=== PATIENT | male | born 1970 | race Two or more races ===

== ENCOUNTER 2020-03-21 18:45 | Inpatient (IN) | payer MEDICAID, OTHER ==
[~2020-03-21] VITALS: Ht 167.6 cm; Wt 116.0 kg
[2020-03-21] MEDS ORDERED: ACETAMINOPHEN 325 MG TAB PO ONE (19:15)
[2020-03-21 20:08] LABS: Basophils # (auto) 0 10 ^3/uL (0-0.2); Basophils % (auto) 0.1 % (0.0-2.0); Eosinophils # (auto) 0 10 ^3/uL (0-0.8); Hematocrit 45.6 % (41.0-53.0); Lymphocytes # (auto) 0.6 10 ^3/uL (0.4-5.4); Lymphocytes % (auto) 11.3 % (10.0-50.0); Mean Corpuscular Hemoglobin 29.4 pg (28.0-32.0); Mean Corpuscular Volume 89.2 fL (80.0-100.0); Monocytes # (auto) 0.6 10 ^3/uL (0-1.3); Monocytes % (auto) 11.5 % (0.0-12.0); Neutrophils # (auto) 4.2 10 ^3/uL (1.6-8.6); Neutrophils % (auto) 77.1 % (37.0-80.0); Nucleated Red Blood Cells % 0.1 %; Platelet Count (auto) 148 10^3/uL (140-450); Red Blood Cells 5.11 10^6/uL (4.5-5.90); Red Cell Distribution Width 14.3 % (11.8-14.3); White Blood Cell 5.5 10^3/uL (4.4-10.8)
[2020-03-21 20:25] LABS: Alanine Aminotransferase 64 U/L (16-61); Albumin 3.1 g/dL (3.4-5.0); Anion Gap 7 (5-15); Aspartate Aminotransferase 49 U/L (15-37); BUN/Creatinine Ratio 9.7; Blood Urea Nitrogen 10 mg/dL (7-18); Calcium 8.1 mg/dL (8.5-10.1); Carbon Dioxide 27 mmol/L (21-32); Chloride 100 mmol/L (98-107); GFR African American 98 mL/min; GFR Non-African American 81 mL/min; Glucose 101 mg/dL (74-106); Potassium 4.3 mmol/L (3.5-5.1); Sodium 134 mmol/L (136-145)
[2020-03-21 20:30] LABS: Alkaline Phosphatase 62 U/L (45-117); Bilirubin, Total 0.3 mg/dL (0.2-1.0); Total Protein 7.8 g/dL (6.4-8.2)
[2020-03-21] MEDS ORDERED: SODIUM CHLORIDE 0.9% 1,000 ML IVB ONE (20:52)
[2020-03-21] MEDS ORDERED: ZINC SULFATE 220mg CAP or TAB PO ONE (21:00)
[2020-03-21] MEDS ORDERED: DOXYCYCLINE 100 MG TAB/CAP PO ONE (21:00)
[2020-03-21] MEDS ORDERED: ASCORBIC ACID 500 MG TAB PO ONE (21:00)
[2020-03-21] MEDS ORDERED: levoFLOXacin 500MG 100 ML IV ONE (21:00)
[2020-03-21 22:56] LABS: INR 0.98 (0.9-1.15); Partial Thromboplastin Time 36.2 sec (23.64-32.05)
[2020-03-21 23:55] LABS: Urine Bacteria FEW /hpf (None Seen); Urine Blood Negative /uL (Negative); Urine Mucus FEW (None Seen); Urine WBC 1 /hpf (0 - 3)
[2020-03-22] VITALS (28 sets, daily range): BP systolic 89–138; BP diastolic 37–91
[2020-03-22] MEDS ORDERED: ASCORBIC ACID 500 MG TAB ONE (00:15)
[2020-03-22] MEDS ORDERED: IPRATROPIUM BROM 0.5 MG/2.5ML INH SOL NEB PRN (00:30)
[2020-03-22] MEDS ORDERED: ALBUTEROL SULF 2.5 MG/0.5ML(0.5%) NEB SOLN NEB PRN (00:30)
[2020-03-22] MEDS ORDERED: TEMAZEPAM 15 MG CAP PO PRN (00:30)
[2020-03-22] MEDS ORDERED: LORazepam 0.5 MG TAB PO PRN (00:30)
[2020-03-22] MEDS ORDERED: HYDROcodone-ACET 5/325MG TAB PO PRN (00:30)
[2020-03-22] MEDS ORDERED: DOCUSATE SOD 100 MG CAP PO PRN (00:30)
[2020-03-22] MEDS ORDERED: DEXTROSE (50%) 50ML SYRG IV PRN (00:30)
[2020-03-22] MEDS ORDERED: MORPHINE SULF INJ 2 MG/ML SYRINGE 1ML IV PRN (00:30)
[2020-03-22] MEDS ORDERED: ONDANSETRON HCL 4 MG/2 ML VIAL IV PRN (00:30)
[2020-03-22] MEDS: ACETAMINOPHEN 500 MG TAB PO PRN (04:28)
[2020-03-22] MEDS: InsuLIN REG 1unit/0.01ml Soln (100units/ml) SC SCH ×3 (06:00→18:04)
[2020-03-22] MEDS: ALBUTEROL SULF HFA 90MCG INH 200DOSE IN SCH ×3 (06:00→22:00)
[2020-03-22] MEDS: ACCU-CHEK COMFORT CURVE STRIP VI SCH ×3 (06:26→18:04)
[2020-03-22] MEDS: CHOLECALCIFEROL (VITD3) 1,000UNIT=25mCg TAB PO SCH (08:06)
[2020-03-22] MEDS: ASCORBIC ACID 1,000 MG TAB PO SCH (08:06)
[2020-03-22] MEDS: ZINC SULFATE 220mg CAP or TAB PO SCH (08:07)
[2020-03-22] MEDS: cefTRIAXone 1GM/50ML D5W 50 ML IV SCH (08:08)
[2020-03-22] MEDS: LOSARTAN POTASSIUM 25 MG TAB PO SCH (08:08)
[2020-03-22] MEDS ORDERED: DOXYCYCLINE 100 MG TAB/CAP PO SCH (10:00)
[2020-03-22] MEDS ORDERED: methylPREDNISolone SOD SUCC 125 MG/2 ML VL IV SCH (10:00)
[2020-03-22] MEDS ORDERED: ENOXAPARIN SOD 40 MG/0.4 ML SYRINGE SC SCH (10:00)
[2020-03-22 11:10] LABS: Basophils # (auto) 0 10 ^3/uL (0-0.2); Basophils % (auto) 0.3 % (0.0-2.0); Eosinophils # (auto) 0 10 ^3/uL (0-0.8); Hematocrit 37.4 % (41.0-53.0); Hemoglobin 12.3 g/dL (13.5-17.5); Lymphocytes # (auto) 0.9 10 ^3/uL (0.4-5.4); Lymphocytes % (auto) 18.2 % (10.0-50.0); Mean Corpuscular Hemoglobin 29.2 pg (28.0-32.0); Mean Corpuscular Hgb Conc. 32.9 g/dL (32.0-36.0); Mean Corpuscular Volume 88.8 fL (80.0-100.0); Monocytes # (auto) 0.6 10 ^3/uL (0-1.3); Monocytes % (auto) 11.1 % (0.0-12.0); Neutrophils # (auto) 3.5 10 ^3/uL (1.6-8.6); Neutrophils % (auto) 70.4 % (37.0-80.0); Platelet Count (auto) 161 10^3/uL (140-450); Red Blood Cells 4.21 10^6/uL (4.5-5.90); Red Cell Distribution Width 13.8 % (11.8-14.3)
[2020-03-22 11:26] LABS: Albumin 2.6 g/dL (3.4-5.0); Anion Gap 7 (5-15); Blood Urea Nitrogen 12 mg/dL (7-18); Calcium 7.7 mg/dL (8.5-10.1); Carbon Dioxide 24 mmol/L (21-32); Chloride 103 mmol/L (98-107); Glucose 95 mg/dL (74-106); Potassium 3.9 mmol/L (3.5-5.1); Sodium 134 mmol/L (136-145)
[2020-03-22 11:35] LABS: Alanine Aminotransferase 68 U/L (16-61); Alkaline Phosphatase 56 U/L (45-117); Aspartate Aminotransferase 56 U/L (15-37); BUN/Creatinine Ratio 14.3; Bilirubin, Total 0.3 mg/dL (0.2-1.0); GFR African American 124 mL/min; GFR Non-African American 102 mL/min; Lactate Dehydrogenase 396 U/L (87-241); Total Protein 7.2 g/dL (6.4-8.2)
[2020-03-22 12:17] LABS: CRP High Sensitivity > 19 mg/dL (< 0.3)
[2020-03-22] MEDS ORDERED: SUCCINYLCHOLINE CHLORIDE 20 MG/ML 10ML VIAL IV ONE ×2 (14:38→14:45)
[2020-03-22] MEDS ORDERED: ETOMIDATE (2MG/ML) 20ML VIAL IV ONE ×2 (14:38→14:45)
[2020-03-22] MEDS ORDERED: MIDAZOLAM DRIP 50 mg/50mL 50 ML IV ONE (14:40)
[2020-03-22] MEDS: MIDAZOLAM DRIP 50 mg/50mL 50 ML IV SCH ×2 (14:55→21:00)
[2020-03-22] MEDS: PROPOFOL 100 ML IV SCH (15:00)
[2020-03-22] MEDS: NOREPINEPHRINE 8 MG/250ML KIT 250 ML IV SCH (15:10)
[2020-03-22] MEDS ORDERED: NOREPINEPHRINE 8 MG/250ML KIT 250 ML IV ONE (15:13)
[2020-03-22] MEDS ORDERED: fentaNYL Drip 2500mCg/250mlNS 250 ML IV ONE (15:24)
--- NOTE | 2020-03-22 15:28 | NUR ---
Respiratory note: VENT CHANGES MADE RR 16 VT TO 550. ABG 1800
[2020-03-22] MEDS: fentaNYL Drip 2500mCg/250mlNS 250 ML IV SCH (15:43)
--- NOTE | 2020-03-22 19:00 | NUR ---
RT Transport Note: Patient transported to ICU 110 with RN Eduar. Patient transported to and from procedure on ventilator with previous ordered settings. Patient on corrugated fastener driver with alarms set and audible, ambu-bag/mask connected to 02 tank. Patient returned to room with no adverse reaction noted. Transport completed without incident.
--- NOTE | 2020-03-22 19:10 | NUR ---
PT TRANSFERRED FROM ED TO ICU ROOM 110 TRANSFERRED BY BED ON OXYGEN, HEMODYNAMIC MONITOR, WITH RT AND RN AT THE BEDSIDE. VS T99.0, HR 65, BP 93/53 (LEVO 4MCG), RR 16 (PT PLACE ON VENTILATOR), SPO2 91%, SEDATED ON FENTANYL, VERSED AND PROPOFOL. BED IN THE LOWEST POSITION, HOB 35 DEGREES, RAILS X4 FOR SAFETY, PT PLACED ON MONITOR, KILLIAN DRAINING CLEAR YELLOW URINE DOWN THE GRAVITY. WILL TAKE OVER THE CARES, PT IS VISUALIZED FROM THE NURSING STATION AT ALL TIMES.
--- NOTE | 2020-03-22 20:02 | NUR ---
DANIAL KINGSLEY CALLED RECEIVED NEW ORDER FOR VENTILATOR SETTINGS
--- NOTE | 2020-03-22 21:00 | NUR ---
CATY AT BEDSIDE RECEIVED NEW ORDERS
[2020-03-22] MEDS ORDERED: FUROSEMIDE 20 MG/2 ML VIAL IV ONE (22:00)
--- NOTE | 2020-03-22 22:00 | NUR ---
PATIENT SATURATING AT FROM 89 TO 91% PAGED RT
[2020-03-22] MEDS: methylPREDNISolone SOD SUCC 40 MG/ML VL IV SCH (22:18)
[2020-03-22] MEDS: ENOXAPARIN SOD 40 MG/0.4 ML SYRINGE SC SCH (22:18)
--- NOTE | 2020-03-22 22:32 | NUR ---
CONTACT Updated daughter (Tequila Durand) who translated to patient's (Brenda Flower) on patients status and POC. Tequila Durand (daughter) contact number [phone] Brenda Flower ( - Amharic speaker only) contact number [phone]
[2020-03-23] VITALS (108 sets, daily range): BP systolic 90–118; BP diastolic 42–74
[2020-03-23] MEDS: InsuLIN REG 1unit/0.01ml Soln (100units/ml) SC SCH ×4 (00:45→18:00)
[2020-03-23] MEDS: PROPOFOL 100 ML IV SCH ×5 (00:46→23:23)
[2020-03-23] MEDS: MIDAZOLAM DRIP 50 mg/50mL 50 ML IV SCH ×3 (04:07→15:26)
[2020-03-23 05:04] LABS: Basophils # (auto) 0 10 ^3/uL (0-0.2); Basophils % (auto) 0.4 % (0.0-2.0); Eosinophils # (auto) 0 10 ^3/uL (0-0.8); Hematocrit 40.7 % (41.0-53.0); Hemoglobin 13.5 g/dL (13.5-17.5); Lymphocytes # (auto) 0.8 10 ^3/uL (0.4-5.4); Lymphocytes % (auto) 12.2 % (10.0-50.0); Mean Corpuscular Hemoglobin 29.5 pg (28.0-32.0); Mean Corpuscular Hgb Conc. 33.1 g/dL (32.0-36.0); Mean Corpuscular Volume 89.1 fL (80.0-100.0); Monocytes # (auto) 0.5 10 ^3/uL (0-1.3); Monocytes % (auto) 7.9 % (0.0-12.0); Neutrophils # (auto) 5.3 10 ^3/uL (1.6-8.6); Neutrophils % (auto) 79.5 % (37.0-80.0); Nucleated Red Blood Cells % 0.1 %; Platelet Count (auto) 206 10^3/uL (140-450); Red Blood Cells 4.57 10^6/uL (4.5-5.90); Red Cell Distribution Width 14.2 % (11.8-14.3); White Blood Cell 6.7 10^3/uL (4.4-10.8)
[2020-03-23 05:25] LABS: Potassium 3.9 mmol/L (3.5-5.1)
[2020-03-23 05:34] LABS: Albumin 2.6 g/dL (3.4-5.0); Bilirubin, Total 0.4 mg/dL (0.2-1.0); Calcium 8.3 mg/dL (8.5-10.1); Total Protein 7.1 g/dL (6.4-8.2)
[2020-03-23] MEDS: ALBUTEROL SULF HFA 90MCG INH 200DOSE IN SCH ×2 (06:00→14:00)
[2020-03-23] MEDS: ACCU-CHEK COMFORT CURVE STRIP VI SCH ×4 (06:07→18:52)
[2020-03-23] MEDS: fentaNYL Drip 2500mCg/250mlNS 250 ML IV SCH (06:38)
--- NOTE | 2020-03-23 06:39 | NUR ---
Respiratory note: RECEIVED PATIENT ON V12 V20 VENT ORALLY INTUBATED WITH AN 8.0 ETT SECURED VIA SHAKILA AT THE 23CM MARKING AT THE LIP, AND MECHANICALLY VENTILATED WITH THE CHARTED SETTINGS. SPO2 93%, LUNG SOUNDS DIM T/O, NO SECRETIONS WHEN SUCTIONED. SKIN IS WARM/DRY TO THE TOUCH AND IS INTACT NEAR SHAKILA SITE. THERE IS AN OGT IN PLACE AND SECURED TO THE ETT. AM CXR ASSESSED AND IT SHOWS ETT IN SATISFACTORY POSITION SITTING APPROX 3.6CM ABOVE THE OFELIA; NO INDICATION TO ADJUST TUBE AT THIS TIME. PATIENT IS UNRESPONSIVE TO BOTH VERBAL/TACTILE STIMULI AND IS SEDATED ON PROPOFOL, VERSED, AND FENTANYL DRIPS. HE IS RESTING COMFORTABLY AND TOLERATING VENT WELL, NO CHANGES MADE. VENT PLUGGED INTO RED OUTLET AND ALL ALARMS ARE SET AND AUDIBLE. WILL CONTINUE TO ASSESS PATIENT WELL VENTILATOR FUNCTION.
--- NOTE | 2020-03-23 06:40 | NUR ---
FAMILY CALLED SPOKE TO GENTRY (DAUGHTER) UPDATED HER ON PT'S STATUS AND POC. ALL QUESTION AND CONCERNS ADDRESSED
--- NOTE | 2020-03-23 09:00 | NUR ---
SEDATION VACATION PT NOT APPROPRIATE FOR SEDATION VACATION DUE TO HIGH OXYGEN REQUIREMENT. Addendum: 03/23/20 at 1303 by Alessandro Rubin RN Amended: Links added.
[2020-03-23] MEDS: methylPREDNISolone SOD SUCC 40 MG/ML VL IV SCH ×2 (09:21→21:19)
[2020-03-23] MEDS: cefTRIAXone 1GM/50ML D5W 50 ML IV SCH (09:21)
[2020-03-23] MEDS: ZINC SULFATE 220mg CAP or TAB PO SCH (09:22)
[2020-03-23] MEDS: ASCORBIC ACID 1,000 MG TAB PO SCH (09:22)
[2020-03-23] MEDS: CHOLECALCIFEROL (VITD3) 1,000UNIT=25mCg TAB PO SCH (09:22)
[2020-03-23] MEDS: LOSARTAN POTASSIUM 25 MG TAB PO SCH (09:23)
[2020-03-23] MEDS: ENOXAPARIN SOD 40 MG/0.4 ML SYRINGE SC SCH ×2 (09:23→21:19)
[2020-03-23] MEDS: AZITHROMYCIN 500MG/ 250ML 250 ML IV SCH (09:24)
--- NOTE | 2020-03-23 09:40 | NUR ---
DESATURATION/TEMPERATURE UPON TURNING PT TO LEFT SIDE, PT SPO2 WENT DOWN TO THE 70'S. PT PLACED BACK ON SUPINE POSITION AND SPO2 GRADUALLY CAME BACK UP TO 92%. PTS RECTAL TEMP 93.6. WARMING MEASURES STARTED. BRUCE EDMONDS PLACED ON PT ALONG WITH WARM BLANKETS. WILL CONTINUE TO MONITOR. Signed: 03/23/20 at 1116 by CHENTE LOERA <Co-Signature Required> Co-Signed: 03/23/20 at 1116 by Alessandro Rubin RN
--- NOTE | 2020-03-23 11:40 | NUR ---
WOUND CARE NOTE: ADDED PATIENT TO SKIN INTEGRITY MONITORING D/T PATIENT'S INTUBATION STATUS. PATIENT ADMITTED TO [facility] WITH DIAGNOSIS OF RESPIRATORY DISTRESS, COVID 19 POSITIVE. CURRENT ROSANGELA SCORE IS 10. CURRENTLY, PATIENT IS INTUBATED, SEDATED. PER BEDSIDE NURSE, PATIENT IS TOO UNSTABLE TO TURN, D/T OXYGEN DESATURATION UPON REPOSITIONING. PATIENT IS RESTING ON ICU LOW AIRLOSS BED. PER BEDSIDE NURSE, PATIENT IS WOUND FREE AT THIS TIME. SKIN/WOUND CARE PLAN IMPLEMENTED. PATIENT WOULD BENEFIT FROM BID APPLICATIONS WITH MOISTURE BARRIER CREAM/OPTIFOAM GENTLE SACRAL DRESSING PREVENTATIVE, FREQUENT TURN SCHEDULE Q 2 HOURS, PRN CONDITION PERMITS, WITH PRESSURE REDISTRIBUTION USING PILLOWS/WEDGES, DIETARY CONSULT FOR INTUBATION STATUS, CONTINUED MONITORING B WOUND CARE TEAM.
[2020-03-23] MEDS: NOREPINEPHRINE 8 MG/250ML KIT 250 ML IV SCH (12:27)
[2020-03-23] MEDS ORDERED: TOCILIZUMAB IV ONE ×2 (14:45→15:30)
[2020-03-23] MEDS ORDERED: FUROSEMIDE 40 MG/4 ML VIAL IV ONE (14:45)
[2020-03-23] MEDS ORDERED: SODIUM CHL 0.9% IV ONE ×2 (14:45→15:30)
[2020-03-23] MEDS ORDERED: diphenhdrAMINE HCL 50 MG/1 ML VL IV ONE (15:15)
[2020-03-23] MEDS ORDERED: ACETAMINOPHEN 650 mg PER 20 mL UD PO ONE (15:15)
[2020-03-23] MEDS ORDERED: methylPREDNISolone SOD SUCC 40 MG/ML VL IV ONE (15:15)
[2020-03-23] MEDS: FUROSEMIDE 40 MG/4 ML VIAL IV SCH (18:51)
--- NOTE | 2020-03-23 19:00 | NUR ---
Opening shift note: Report received on patient. Patient intubated ETT 8.0/ 24cm @ LL, Vent settings: AC 18, TV 550, FIO2 100%, PEEP 12, O2 88%, bilateral lungs clear and diminished. Central line right IJ triple lumen cath, infusing versed @ 13, Propofol @ 40, Levo @ 6, Fentanyl @ 175. OG tube clamped, placement checked. Farrell catheter draining via gravity with yellow urine. Temp 97.[address] Safety precautions in place. Will continue to monitor patient. Patient on isolation for COVID-19 positive.
--- NOTE | 2020-03-23 20:00 | NUR ---
RN repositioned patient and patient was noted to desaturate to low 80's and high 70's. Patient placed back into a supine position and oxygen saturation noted to gradually increase to high 80's. Patient currently to unstable to reposition.
--- NOTE | 2020-03-23 22:00 | NUR ---
Patient currently to unstable to reposition.
[2020-03-24] VITALS (83 sets, daily range): BP systolic 93–137; BP diastolic 44–74
--- NOTE | 2020-03-24 | NUR ---
Patient currently saturating in the high 80's. Patient currently remains to unstable to reposition.
[2020-03-24] MEDS: ACCU-CHEK COMFORT CURVE STRIP VI SCH ×5 (00:12→23:30)
[2020-03-24] MEDS: InsuLIN REG 1unit/0.01ml Soln (100units/ml) SC SCH ×5 (00:18→23:14)
[2020-03-24 04:57] LABS: Basophils # (auto) 0 10 ^3/uL (0-0.2); Basophils % (auto) 0.4 % (0.0-2.0); Eosinophils # (auto) 0 10 ^3/uL (0-0.8); Hematocrit 38.2 % (41.0-53.0); Hemoglobin 12.9 g/dL (13.5-17.5); Lymphocytes # (auto) 0.7 10 ^3/uL (0.4-5.4); Lymphocytes % (auto) 6.6 % (10.0-50.0); Mean Corpuscular Hgb Conc. 33.8 g/dL (32.0-36.0); Mean Corpuscular Volume 88.7 fL (80.0-100.0); Monocytes # (auto) 0.9 10 ^3/uL (0-1.3); Monocytes % (auto) 8.7 % (0.0-12.0); Neutrophils # (auto) 9.1 10 ^3/uL (1.6-8.6); Neutrophils % (auto) 84.3 % (37.0-80.0); Nucleated Red Blood Cells % 0.1 %; Platelet Count (auto) 249 10^3/uL (140-450); Red Blood Cells 4.31 10^6/uL (4.5-5.90); Red Cell Distribution Width 13.9 % (11.8-14.3); White Blood Cell 10.8 10^3/uL (4.4-10.8)
[2020-03-24 05:11] LABS: Albumin 2.5 g/dL (3.4-5.0); Calcium 7.9 mg/dL (8.5-10.1); Magnesium 2.9 mg/dL (1.6-2.6); Potassium 4.4 mmol/L (3.5-5.1)
[2020-03-24 05:21] LABS: BUN/Creatinine Ratio 16.1; Bilirubin, Total 0.3 mg/dL (0.2-1.0); Phosphorus 5.7 mg/dL (2.5-4.90); Total Protein 6.8 g/dL (6.4-8.2)
[2020-03-24] MEDS: FUROSEMIDE 40 MG/4 ML VIAL IV SCH ×2 (05:42→09:12)
[2020-03-24] MEDS: cefTRIAXone 1GM/50ML D5W 50 ML IV SCH (09:09)
[2020-03-24] MEDS: NOREPINEPHRINE 8 MG/250ML KIT 250 ML IV SCH (09:11)
[2020-03-24] MEDS ORDERED: ENOXAPARIN SOD 60 MG/0.6 ML SYRINGE SC SCH (10:00)
--- NOTE | 2020-03-24 10:00 | NUR ---
AM ASSESSMENT, PT REQUIRING 100% FIO2 PT DX WITH SUSPECTED COVID ACUTE HYPOXIC RESPIRATORY FAILURE. PT CURRENTLY NOT BEING REPOSITIONED IN BED D/T HIGH OXYGENATION REQUIREMENTS. LS CTA AND DIMINISHED ON ON THE BASIS, PT COMPLETELY SEDATED. SEE IV FLOW SHEET FOR SEDATION TITRATION. ALL CARE IS BEING CLUSTER TO LIMIT EXPOSURE TO COVID. FC WITH CLEAR UOP, PT HAS A TLC RT IJ WHERE ALL GTTS ARE INFUSING. TLC BENIGN AND PATENT. IV TO BOTH RT & LT ARM ARE BOTH HL AND BOTH FLUSHING WELL. PT'S DAUGHTER ALREADY CALLED THIS AM TO GET AN UPDATE ON PT'S CONDITION. SHE HAS BEEN UPDATED BY BOTH DAY AND BUTTON AND BUCKLE MAKER.
[2020-03-24] MEDS ORDERED: PANTOPRAZOLE 40 MG/10 ML VIAL INJ IV ONE (11:30)
--- NOTE | 2020-03-24 12:00 | NUR ---
DR. REID IN TO SEE PT . NEW ORDERS RECEIVED FOR LASIX GTT. I CALLED PHARMACY TO REQUEST FOR LASIX GTT.
[2020-03-24] MEDS ORDERED: FUROSEMIDE INJECTION 100 MG in SODIUM CHL 0.9% 100 ML IV SCH (12:15)
[2020-03-24] MEDS: ZINC SULFATE 220mg CAP or TAB PO SCH (12:17)
[2020-03-24] MEDS: CHOLECALCIFEROL (VITD3) 1,000UNIT=25mCg TAB PO SCH (12:18)
[2020-03-24] MEDS: ASCORBIC ACID 1,000 MG TAB PO SCH (12:18)
[2020-03-24] MEDS: methylPREDNISolone SOD SUCC 40 MG/ML VL IV SCH ×2 (12:23→21:56)
[2020-03-24] MEDS: AZITHROMYCIN 500MG/ 250ML 250 ML IV SCH (12:24)
--- NOTE | 2020-03-24 12:30 | NUR ---
Respiratory note: LM FOR REGARDING VENT ORDERS FROM . AWAITING CALL BACK
--- NOTE | 2020-03-24 14:40 | NUR ---
Respiratory note: LM SECOND MESSAGE FOR REGARDING VENT ORDERS. RT TO FOLLOW THROUGH WITH VENT ORDERS, ABG TO FOLLOW.
--- NOTE | 2020-03-24 15:10 | NUR ---
CONSENT FOR CONVALESCENT PLASMA OBTAINED CONSENT FROM PT'S DAUGHTER CAIN ARANDA TO TRANSFUSE CONVALESCENT PLASMA TO HER DAD, SHE AND HER OTHER SISTER ARE THE DECISION MAKER FOR PT, SINCE [place] IS [place]. ALL THE HAND HOUT REAGRDING TRANSFUSION BENEFITS AND RISK WAS EXPLAINED TO PT'S DAUGHTER PLUS SHE SAYD THAT DR. CHINO HAD ALREADY CALLED HER AND EXPLAINED TO HER ABOUT THE PLASMA BENEFITS AND THAT SHE HAD RESEARCHED IT ON LINE, SO SHE HAD AGREED THAT HER DAD COULD BENEFIT FROM RECEIVING THE PLASMA TRANSFUSION. MARLENI SINGER WAS THE WITNESS TO THIS CONSENT.
[2020-03-24] MEDS: fentaNYL Drip 2500mCg/250mlNS 250 ML IV SCH ×2 (15:22→21:43)
--- NOTE | 2020-03-24 15:44 | NUR ---
Nutrition Assessment Notes Please refer to link for full assessment notes. Est Energy needs: 5177-7951 kcals (20-23 kcal/kgBW) d/t Stg 3 CKD Est Protein needs: 86-97 gms/day (0.8-0.9 gm/kgBW) d/t Stg 3 CKD Will continue to monitor and reassess prn. Addendum: 03/24/20 at [address] Amended: Links added.
--- NOTE | 2020-03-24 17:05 | NUR ---
PAGED DR. CHINO TO NOTIFY HIM THAT DR. MADDOX IS NOT GOING TO BE ABLE TO CONSULT ON PT DT HIS WORK LOAD. TO HAVE DR. SHORT CONSULT ON PT.
[2020-03-24] MEDS: FUROSEMIDE INJECTION 100 MG in SODIUM CHL 0.9% 100 ML IV SCH (18:30)
--- NOTE | 2020-03-24 19:00 | NUR ---
Opening shift note: Report received on patient. Patient intubated ETT 8.0/ 24cm @ LL, Vent settings: AC 20, TV 550, FIO2 100%, PEEP 14, O2 86%, bilateral lungs clear and diminished. Central line right IJ triple lumen cath, infusing versed @ 0, Propofol @ 10, Levo @ 4, Fentanyl @ 100 and lasix @ 8mg/hr. OG tube clamped, placement checked. Farrell catheter draining via gravity with yellow urine. Temp 98.[address] Safety precautions in place. Will continue to monitor patient. Patient on isolation for COVID-19 positive.
--- NOTE | 2020-03-24 19:30 | NUR ---
Primary RN in patient's room performing assessment and checking lines. Patient was noted to go bradycardic into the 30's and then a heart rate into the 150's for 2 seconds which then decreased back into the 50's. RN assessed patient for pulses and noted pulsed to be present. Blood pressure was taken and reading of 156/58. Patient saturating at 94%. RN will continue to monitor and assess patient.
--- NOTE | 2020-03-24 19:58 | NUR ---
NOTIFIED DR. BAUM OF PT'S EVENT 1ST HE HAD DAY , THEN HE HAD A RUN OF SVT HR IN THE 150'S TO 160. ALL GTT'S HAD BEEN STOPPED, IT WAS QUESTIONABLE IF THE CAUSE OF ARRHYTHMIA WAS LASIX RELATED. WANTED THE ELECTROLYTES TO BE CHECKED AND THEN HE WANT TO BE CALLED WITH THE RESULTS. I NOTIFIED MARLENI SABA.
--- NOTE | 2020-03-24 20:00 | NUR ---
Patient currently to unstable to reposition and continues to de-saturate with any form of movement/ repositioning. RN will continue to monitor patient.
--- NOTE | 2020-03-24 21:00 | NUR ---
Sedation vacation held: Patient is currently to unstable for sedation vacation.
[2020-03-24 21:25] LABS: Calcium 7.6 mg/dL (8.5-10.1); Magnesium 3.4 mg/dL (1.6-2.6)
[2020-03-24] MEDS: ENOXAPARIN SOD 40 MG/0.4 ML SYRINGE SC SCH (22:00)
--- NOTE | 2020-03-24 22:00 | NUR ---
Patient currently to unstable to reposition.
--- NOTE | 2020-03-24 22:00 | NUR ---
Dr. Figueroa called RN regarding patient's lab results. RN informed MD that partial labs were only available and others still pending. MD stated he will call back in 15 minutes to follow up on labs. RN notified lab about results and lab informed RN that the patient's blood had hemolyzed as they were running it and the patient needs to be redrawn. RN informed lab they need to run the redraw stat.
[2020-03-24 22:50] LABS: BUN/Creatinine Ratio 19.4; Calcium 7.6 mg/dL (8.5-10.1); Potassium 4.4 mmol/L (3.5-5.1)
[2020-03-24] MEDS ORDERED: BUMETANIDE 2.5mg/10ml (0.25 mg/ml) INJ IV ONE (23:00)
--- NOTE | 2020-03-24 23:01 | NUR ---
RN paged Dr. Figueroa to follow up on patient's lab results and current condition. MD updated on patient condition and situation. New orders received for Bumex 2.5mg IV push and to resume Lasix drip at 7mg/hr. Orders read back and verified.
[2020-03-25] VITALS (91 sets, daily range): BP systolic 95–163; BP diastolic 54–87
--- NOTE | 2020-03-25 | NUR ---
Patient currently to unstable to reposition.
[2020-03-25] MEDS: PROPOFOL 100 ML IV SCH (04:23)
[2020-03-25] MEDS: InsuLIN REG 1unit/0.01ml Soln (100units/ml) SC SCH ×4 (04:57→23:13)
[2020-03-25] MEDS: ACCU-CHEK COMFORT CURVE STRIP VI SCH ×4 (04:58→23:15)
[2020-03-25 04:59] LABS: Magnesium 2.9 mg/dL (1.6-2.6); Phosphorus 4.3 mg/dL (2.5-4.90)
[2020-03-25 05:13] LABS: Hematocrit 37.9 % (41.0-53.0); Hemoglobin 12.3 g/dL (13.5-17.5); Mean Corpuscular Hemoglobin 28.9 pg (28.0-32.0); Mean Corpuscular Hgb Conc. 32.5 g/dL (32.0-36.0); Mean Corpuscular Volume 89.2 fL (80.0-100.0); Platelet Count (auto) 283 10^3/uL (140-450); Red Blood Cells 4.25 10^6/uL (4.5-5.90); Red Cell Distribution Width 13.9 % (11.8-14.3); White Blood Cell 13.9 10^3/uL (4.4-10.8)
[2020-03-25 05:20] LABS: Basophils % (manual) 0 (0.0-2.0); Blast Cells 0; Eosinophils % (manual) 0 (0-7); Metamyelocytes % 0; Myelocytes % 0; Promyelocytes % 0; Reactive Lymphocytes 0
[2020-03-25 06:31] LABS: Band Neutrophils % (manual) 3; Lymphocytes % (manual) 10 (10.0-50.0); Monocytes % (manual) 3 (0-12)
--- NOTE | 2020-03-25 07:18 | NUR ---
Opening Shift Note Assumed care of patient, sedated and with ET tube attached to AC ventilation. Bed is in lowest position and locked. Call light within reach. Board updated. No S/S of distress/SOB or pain. Patient attached to continuos pulse ox monitor, continuous campus monitor, and continuous thermometer. BP cuff on left bicep set to monitor q 15 minutes. Will continue to monitor for changes Q1hr and PRN.
[2020-03-25] MEDS: cefTRIAXone 1GM/50ML D5W 50 ML IV SCH (08:37)
--- NOTE | 2020-03-25 09:08 | NUR ---
Unable to perform sedation vacation. Patient is hemodynamically unstable and does not handle turning or sedation vacation. Addendum: 03/25/20 at 1405 by EVELYN BRUNSON RN Amended: Links added.
[2020-03-25] MEDS ORDERED: FUROSEMIDE INJECTION 100 MG in SODIUM CHL 0.9% 100 ML IV SCH (10:00)
[2020-03-25] MEDS ORDERED: CALCIUM CHL 100MG/ML 1,000 MG in D5W 5% 100 ML IV ONE (10:00)
--- NOTE | 2020-03-25 10:12 | NUR ---
MD Link in to see patient. No orders received.
[2020-03-25] MEDS ORDERED: methylPREDNISolone SOD SUCC 40 MG/ML VL IV ONE ×2 (10:45→13:45)
[2020-03-25] MEDS ORDERED: diphenhdrAMINE HCL 50 MG/1 ML VL IV ONE ×2 (10:45→13:45)
[2020-03-25] MEDS ORDERED: ACETAMINOPHEN 650 mg PER 20 mL UD PO ONE ×2 (10:45→13:45)
[2020-03-25] MEDS: methylPREDNISolone SOD SUCC 40 MG/ML VL IV SCH (10:58)
[2020-03-25] MEDS ORDERED: TOCILIZUMAB 400 MG in SODIUM CHL 0.9% 80 ML IV ONE ×2 (11:00→14:00)
[2020-03-25] MEDS: PANTOPRAZOLE 40 MG/10 ML VIAL INJ IV SCH (11:03)
[2020-03-25] MEDS: ASCORBIC ACID 1,000 MG TAB PO SCH (11:04)
[2020-03-25] MEDS: ENOXAPARIN SOD 40 MG/0.4 ML SYRINGE SC SCH ×2 (11:04→23:33)
[2020-03-25] MEDS: ZINC SULFATE 220mg CAP or TAB PO SCH (11:04)
[2020-03-25 11:05] LABS: BUN/Creatinine Ratio 20.9; Calcium 7.7 mg/dL (8.5-10.1); Potassium 4.3 mmol/L (3.5-5.1)
[2020-03-25] MEDS: CHOLECALCIFEROL (VITD3) 1,000UNIT=25mCg TAB PO SCH (11:05)
[2020-03-25] MEDS: methylPREDNISolone SOD SUCC 1,000 MG in SODIUM CHL 0.9% 250 ML IV SCH (12:05)
--- NOTE | 2020-03-25 12:38 | NUR ---
Started convalescent plasma infusion now. Vitals taken prior to administration. Will continue to assess.
--- NOTE | 2020-03-25 13:12 | NUR ---
MD Figueroa in to see patient. wants diuresis ideally of 200 mg/hr. Order: Increase lasix infusion to 15 mg/hr. add magnesium and potassium IV PB per protocol. Orders repeated, verified, and placed.
--- NOTE | 2020-03-25 13:25 | NUR ---
Plasma is now infused. Will continue to assess.
[2020-03-25] MEDS: AZITHROMYCIN 500MG/ 250ML 250 ML IV SCH (13:26)
--- NOTE | 2020-03-25 13:26 | NUR ---
Paged MD Cuevas to clarify order. Per , "Order Magnesium and Potassium IV supplementation per protocol." Spoke to pharmacy and the informed me that they do have a protocol policy for IV magnesium and Potassium but that that policy is for patients who have normal renal function and BUN and Creatinine are not impaired. Patient has elevated BUN and creatinine. Because of this , per pharmacy, MD Mendieta must either but in specific orders or a standing communication order for abnormal potassium and magnesium levels and what medications to order. Awaiting sandeep back.
[2020-03-25] MEDS: FUROSEMIDE INJECTION 100 MG in SODIUM CHL 0.9% 100 ML IV SCH ×5 (13:43→23:40)
[2020-03-25] MEDS: MIDAZOLAM DRIP 50 mg/50mL 50 ML IV SCH (14:38)
--- NOTE | 2020-03-25 15:31 | NUR ---
Spoke to RT regarding patient saturating between 86-92%. Patient keeps fluctuating back and forth between oxygen saturations. Per RT, she is comfortable with patient being at this oxygen saturation. Will continue to assess
--- NOTE | 2020-03-25 15:33 | NUR ---
assessment Patient is a 50 year old male who is on a vent. Per patients Brenda through a telephoner ADA her daughter prior to admission patient lived home with his other daughter and was independent. Patients has been staying in the [place] area due to needing help after surgery. Patients has not been exposed to patient and the covid 19. Per Brenda patient was taken to ER for fever and shortness of breath and was admitted and put on a vent. Patient has no DME or oxygen at home. I informed Brenda patients post discharge needs to be determined after extubation and prior to discharge. Brenda verbalized understanding. Addendum: 03/25/20 at 1536 by Inga DIALLO Amended: Links added.
[2020-03-25] MEDS: NOREPINEPHRINE 8 MG/250ML KIT 250 ML IV SCH ×2 (15:49→15:52)
--- NOTE | 2020-03-25 16:28 | NUR ---
MD Link has placed orders for potassium infusion.
--- NOTE | 2020-03-25 18:58 | NUR ---
Closing shift note Report given to MARLENI Little. No signs of distress from patient upon transferring care.
--- NOTE | 2020-03-25 21:00 | NUR ---
sedation vacation not performed at this time, as it is not appropriate; will cont. to monitor.
[2020-03-25 23:49] LABS: Calcium 7.8 mg/dL (8.5-10.1); Potassium 3.9 mmol/L (3.5-5.1)
[2020-03-25 23:51] LABS: BUN/Creatinine Ratio 27.9
[2020-03-26] VITALS (94 sets, daily range): BP systolic 86–139; BP diastolic 36–68
[2020-03-26 05:25] LABS: Hematocrit 36.1 % (41.0-53.0); Hemoglobin 11.9 g/dL (13.5-17.5); Mean Corpuscular Hemoglobin 29.2 pg (28.0-32.0); Mean Corpuscular Hgb Conc. 32.9 g/dL (32.0-36.0); Mean Corpuscular Volume 88.7 fL (80.0-100.0); Platelet Count (auto) 267 10^3/uL (140-450); Red Blood Cells 4.07 10^6/uL (4.5-5.90); Red Cell Distribution Width 13.9 % (11.8-14.3); White Blood Cell 11.1 10^3/uL (4.4-10.8)
[2020-03-26 05:44] LABS: Basophils % (manual) 0 (0.0-2.0); Blast Cells 0; Eosinophils % (manual) 0 (0-7); Myelocytes % 0; Promyelocytes % 0; Reactive Lymphocytes 0
[2020-03-26 05:48] LABS: Potassium 3.6 mmol/L (3.5-5.1)
[2020-03-26 06:04] LABS: BUN/Creatinine Ratio 29.6; CRP High Sensitivity 2.76 mg/dL (< 0.3); Calcium 7.5 mg/dL (8.5-10.1)
[2020-03-26 07:03] LABS: Band Neutrophils % (manual) 2; Lymphocytes % (manual) 3 (10.0-50.0); Metamyelocytes % 1; Monocytes % (manual) 3 (0-12)
--- NOTE | 2020-03-26 07:12 | NUR ---
REPORT RECEIVED FROM COMPLIANCE ENGINEER RN
[2020-03-26] MEDS: PROPOFOL 100 ML IV SCH ×2 (07:23→16:22)
[2020-03-26] MEDS: MIDAZOLAM DRIP 50 mg/50mL 50 ML IV SCH ×4 (07:23→21:44)
[2020-03-26] MEDS: POTASSIUM CHL 20MEQ/100ML 100 ML IV PRN ×2 (07:24→23:41)
[2020-03-26] MEDS: cefTRIAXone 1GM/50ML D5W 50 ML IV SCH (07:35)
--- NOTE | 2020-03-26 09:00 | NUR ---
SEDATION VACATION HELD AT THIS TIME. PATIENT HEMODYNAMICALLY STABLE AND DOES NOT TOLERATED TURNS OR REPOSITIONING. Addendum: 03/26/20 at 0902 by Rodger Coates RN Amended: Links added.
[2020-03-26] MEDS: PANTOPRAZOLE 40 MG/10 ML VIAL INJ IV SCH ×2 (09:49→21:45)
[2020-03-26] MEDS: ASCORBIC ACID 1,000 MG TAB PO SCH (09:49)
[2020-03-26] MEDS: CHOLECALCIFEROL (VITD3) 1,000UNIT=25mCg TAB PO SCH (09:49)
[2020-03-26] MEDS: ZINC SULFATE 220mg CAP or TAB PO SCH (09:49)
[2020-03-26] MEDS: ENOXAPARIN SOD 40 MG/0.4 ML SYRINGE SC SCH (09:50)
[2020-03-26] MEDS ORDERED: metOLazone 5 MG TAB PO SCH (10:00)
[2020-03-26] MEDS ORDERED: SPIRONOLACTONE 25 MG TAB PO SCH (10:00)
--- NOTE | 2020-03-26 10:00 | NUR ---
ORAL CARE PERFORMED PATIENT TOLERATED WELL
[2020-03-26] MEDS: AZITHROMYCIN 500MG/ 250ML 250 ML IV SCH (10:30)
[2020-03-26] MEDS: methylPREDNISolone SOD SUCC 1,000 MG in SODIUM CHL 0.9% 250 ML IV SCH (11:09)
[2020-03-26] MEDS: ACCU-CHEK COMFORT CURVE STRIP VI SCH ×2 (11:17→17:44)
[2020-03-26] MEDS: InsuLIN REG 1unit/0.01ml Soln (100units/ml) SC SCH ×2 (11:22→17:21)
--- NOTE | 2020-03-26 11:22 | NUR ---
Nutrition Followup Note Wt: 105.1 kg Pt`s covid +. Pt intubated and mildly sedated with propofol running @ 9.3 ml/hr and with propofol provding 245 kcals from fats. pt is currently NPO with no new diet order. Will f/u in 2-3 days. Est Energy needs: 1785-4448 kcals (20-23 kcal/kgBW) d/t Stg 3 CKD. Est Protein needs: 86-97 gms/day (0.8-0.9 gm/kgBW) d/t Stg 3 CKD, Will continue to monitor and reassess prn. Labs: BUN 66 H, CREAT 2.23 H, GLU 167 H, CA 7.5 L BM: Pt had no BM today with 100 ml gastric drainage yesterday per RN doc Skin: BS 9 high risk, full wound care details in RN doc PES: 1) Increased nutrient needs aeb pt is sedated, intubated, NPO r/t pt with no PO intake 2) Obesity aeb 166% IBW and BMI of 38.2 kg/m2 r/t pt Hx of energy intake in excess of energy needs 3) Altered nutrition related lab values elev RFTs, low GFR, hyperglycemia, hypocalcemia, mod hypoalbuminemia r/t current/chronic medical condition Comments Will continue to closely monitor pertinent labs, NPO status and skin status prn. Will followup in 2-3 days 1) Continue to closely monitor pt NPO status. 2) If pt remains NPO for the next 48 hours, consider EN nutrition support Glucerna 1.2 @ 70 ml/hr goal rate without propofol. 3) Gradually advance pt to oral Renal Specific 90gProtein,2gNa,K2,low phos diet diet when medically feasible and as tolerated .4) Continue current plan of care
[2020-03-26] MEDS ORDERED: ENOXAPARIN SOD 80 MG/0.8ML SYRINGE SC ONE (11:30)
--- NOTE | 2020-03-26 11:49 | NUR ---
FAMILY DAUGHTER UPDATED ON PATIENT STATUS. ALL QUESTIONS AND CONCERNS ADDRESSED AT THIS TIME
[2020-03-26] MEDS: FUROSEMIDE INJECTION 100 MG in SODIUM CHL 0.9% 100 ML IV SCH ×3 (12:00→17:59)
[2020-03-26] MEDS: fentaNYL Drip 2500mCg/250mlNS 250 ML IV SCH (12:01)
--- NOTE | 2020-03-26 13:17 | NUR ---
DECREASED RESP. RATED TO 18 AND DECREASED PEEP TO 12. PER DR. ACKERMAN'S ORDERS.
--- NOTE | 2020-03-26 15:22 | NUR ---
DR. GALARZA AT BEDSIDE
[2020-03-26] MEDS: NOREPINEPHRINE 8 MG/250ML KIT 250 ML IV SCH (15:49)
--- NOTE | 2020-03-26 19:45 | NUR ---
OPEN NOTES Assumed care of patient. Patient received sedated with IV Versed, Propofol and Fentanyl -refer IV spreadsheet Pupils both sluggishly reactive to light. No some upper limb movement to stimuli. Intubated and ventilated on AC mode, Fio2 45%. Suctioned small amount of secretions. Oral care done. VS stable. on IV Levophed - to keep MAP 70 mmHg as ordered. with ongoing IV Lasix drip. Urine output good amount yellowish with some sediments. OGT - clamped, checked placement. Skin intact, unable to asses back as patient easily desaturates when fully turned to sides according to day shift RN. Placed patient's bed on lateral rotation. Right IJ TLC dressing dry and intact. Full assessment done -refer interventions
--- NOTE | 2020-03-26 20:01 | NUR ---
WEANED OFF LEVOPHED
--- NOTE | 2020-03-26 21:00 | NUR ---
sedation vacation not done
--- NOTE | 2020-03-26 21:17 | NUR ---
FAMILY CALLED PATIENT'S DAUGHTER GENTRY CALLED. CORRECT PASSWORD GIVEN. UPDATED HER OF PATIENT'S CONDITION. ALL QUESTIONS ANSWERED. VERBALIZED UNDERSTANDING
[2020-03-26] MEDS: ENOXAPARIN SOD 120 MG/0.8 ML SYRINGE SC SCH (21:45)
--- NOTE | 2020-03-26 22:00 | NUR ---
TRIED TURNING PATIENT USING TURN ASSIST OF THE BED TOLERATED WELL. NO DESATURATION NOTED. BP DROPPED TO 87 SYSTOLIC BUT RECHECK WAS BETTER. KEPT AT LEFT LATERAL POSITION. WILL CONTINUE TO MONITOR
[2020-03-26 22:42] LABS: BUN/Creatinine Ratio 29.4; Potassium 3.4 mmol/L (3.5-5.1)
--- NOTE | 2020-03-26 23:00 | NUR ---
BP LOW MAP 60 MMHG IV LEVOPHED RESTARTED AT 2MCG/MIN MD ORDER TO KEEP MAP 70 MMHG
[2020-03-26] MEDS ORDERED: PROPOFOL 100 ML IV ONE (23:33)
--- NOTE | 2020-03-26 23:39 | NUR ---
POTASSIUM 3.4 MMOL POTASSIUM GIVEN PER ORDER
[2020-03-27] VITALS (96 sets, daily range): BP systolic 80–136; BP diastolic 18–78
[2020-03-27] MEDS: InsuLIN REG 1unit/0.01ml Soln (100units/ml) SC SCH ×5 (00:06→23:31)
--- NOTE | 2020-03-27 00:10 | NUR ---
KEPT BED ON LATERAL ROTATION
[2020-03-27] MEDS: ACCU-CHEK COMFORT CURVE STRIP VI SCH ×5 (00:15→23:30)
--- NOTE | 2020-03-27 01:45 | NUR ---
HYGIENE PATIENT CLEANED WITH CHG WIPES. PARTIAL LINEN CHANGE DONE. GOWN CHANGED. ORAL CARE DONE. KEPT BED ON LATERAL ROTATION
[2020-03-27] MEDS: FUROSEMIDE INJECTION 100 MG in SODIUM CHL 0.9% 100 ML IV SCH ×2 (02:00→05:53)
[2020-03-27] MEDS: MIDAZOLAM DRIP 50 mg/50mL 50 ML IV SCH ×4 (02:30→20:13)
[2020-03-27] MEDS: PROPOFOL 100 ML IV SCH (05:49)
--- NOTE | 2020-03-27 07:20 | NUR ---
REPORT REPORT GIVEN TO MARLENI THAYER
--- NOTE | 2020-03-27 07:25 | NUR ---
REPORT REPORT RECEIVED FROM BREANA YEPEZ, CARE ASSUMED. PT RESTING, NO DISTRESS NOTED. VITALS REMAINING STABLE AT THIS TIME.
--- NOTE | 2020-03-27 08:00 | NUR ---
INITIAL CONTACT PHYSICAL ASSESSMENT COMPLETE. PT OBSERVED RESTING IN BED, INTUBATED ON VENTILATOR. TOLERATING VENTILATION WELL AT THIS TIME, NO DISTRESS NOTED. AFEBRILE. PULSES PALPABLE BILATERAL RADIAL AND PEDAL. SCD'S ON BILATERAL EXTREMITIES. OXYGEN SATURATION 100%. PT HAS STRONG COUGH AND GAG WHEN STIMULATED. OGT PRESENT, PATENT, AND CLAMPED AT THIS TIME. KILLIAN CATHETER PATENT AND SECURED BELOW BLADDER. RIGHT IJ TLC, DRESSING IS CDI. SEE SKIN/WOUND ASSESSMENT. PT ISOLATED FOR COVID19. BED LOCKED IN LOWEST POSITION, ALARMS IN PLACE. WILL CONTINUE TO MONITOR.
--- NOTE | 2020-03-27 08:30 | NUR ---
LABS BLOOD OBTAINED FROM CENTRAL LINE AND SENT TO LAB.
--- NOTE | 2020-03-27 09:00 | NUR ---
SEDATION VACATION SEDATION VACATION HELD AT THIS TIME DUE TO INCREASED FIO2 REQUIREMENT.
[2020-03-27 09:25] LABS: BUN/Creatinine Ratio 31.6; Calcium 8.6 mg/dL (8.5-10.1); Potassium 3.1 mmol/L (3.5-5.1)
--- NOTE | 2020-03-27 09:30 | NUR ---
FAMILY PT DAUGHTER GENTRY CALLED FOR UPDATE. PASSWORD PROVIDED. UPDATED ON STATUS AND PLAN OF CARE.
[2020-03-27] MEDS: AZITHROMYCIN 500MG/ 250ML 250 ML IV SCH (09:59)
[2020-03-27] MEDS: ENOXAPARIN SOD 120 MG/0.8 ML SYRINGE SC SCH (10:00)
[2020-03-27] MEDS: ASCORBIC ACID 1,000 MG TAB PO SCH (10:00)
[2020-03-27] MEDS: PANTOPRAZOLE 40 MG/10 ML VIAL INJ IV SCH ×2 (10:00→22:00)
[2020-03-27] MEDS: CHOLECALCIFEROL (VITD3) 1,000UNIT=25mCg TAB PO SCH (10:00)
[2020-03-27] MEDS: ZINC SULFATE 220mg CAP or TAB PO SCH (10:00)
[2020-03-27] MEDS ORDERED: SPIRONOLACTONE 25 MG TAB PO SCH (10:00)
[2020-03-27 10:15] LABS: Hematocrit 42.8 % (41.0-53.0); Hemoglobin 13.8 g/dL (13.5-17.5); Mean Corpuscular Hemoglobin 28.5 pg (28.0-32.0); Mean Corpuscular Hgb Conc. 32.3 g/dL (32.0-36.0); Mean Corpuscular Volume 88.3 fL (80.0-100.0); Platelet Count (auto) 397 10^3/uL (140-450); Red Blood Cells 4.85 10^6/uL (4.5-5.90); Red Cell Distribution Width 13.6 % (11.8-14.3); White Blood Cell 17.7 10^3/uL (4.4-10.8)
[2020-03-27 10:18] LABS: Band Neutrophils % (manual) 0; Basophils % (manual) 0 (0.0-2.0); Blast Cells 0; Eosinophils % (manual) 0 (0-7); Metamyelocytes % 0; Promyelocytes % 0; Reactive Lymphocytes 0
--- NOTE | 2020-03-27 10:20 | NUR ---
PAGED PAGED REGARDING PATIENTS ELEVATED BUN/CREATININE LEVELS. AWAITING CALL BACK.
[2020-03-27 10:37] LABS: Lymphocytes % (manual) 7 (10.0-50.0); Monocytes % (manual) 6 (0-12); Myelocytes % 4
--- NOTE | 2020-03-27 11:32 | NUR ---
RETURNED PAGE RETURNED CALL REGARDING CRITICAL LAB VALUE OF BUN/CREATININE. ORDERS OBTAINED VIA TELEPHONE.
[2020-03-27] MEDS ORDERED: FUROSEMIDE INJECTION 100 MG in SODIUM CHL 0.9% 100 ML IV SCH (11:45)
[2020-03-27] MEDS ORDERED: ALBUMIN 25% 100 ML IV ONE (11:45)
[2020-03-27] MEDS: cefTRIAXone 1GM/50ML D5W 50 ML IV SCH (12:10)
[2020-03-27] MEDS: POTASSIUM CHL 20MEQ/100ML 100 ML IV PRN ×2 (12:11→22:03)
[2020-03-27] MEDS: methylPREDNISolone SOD SUCC 1,000 MG in SODIUM CHL 0.9% 250 ML IV SCH (14:24)
--- NOTE | 2020-03-27 14:59 | NUR ---
MD VISIT AT BEDSIDE ROUNDING. ORDER OBTAINED TO CHANGE VENT SETTINGS, DECREASE SEDATION, AND REPLACE ELECTROLYTE. ORDERS PLACED.
[2020-03-27] MEDS: fentaNYL Drip 2500mCg/250mlNS 250 ML IV SCH ×2 (15:22→21:16)
[2020-03-27] MEDS: POTASSIUM CHL 20MEQ/100ML 100 ML IV SCH ×2 (15:58→16:53)
[2020-03-27] MEDS: NOREPINEPHRINE 8 MG/250ML KIT 250 ML IV SCH (15:59)
--- NOTE | 2020-03-27 15:59 | NUR ---
MD VISIT AT BEDSIDE ROUNDING. MD AWARE OF LABS, MEDICATION, AND URINE OUTPUT.
--- NOTE | 2020-03-27 16:00 | NUR ---
CARES PARTIAL LINEN CHANGE COMPLETE. SKIN REASSESSMENT PERFORMED. SKIN INTACT. PT REPOSITIONED ON SIDE. ALL EXTREMITIES OFF LOADED ON PILLOWS. VITALS REMAIN STABLE. WILL CONTINUE TO MONITOR.
--- NOTE | 2020-03-27 18:50 | NUR ---
PAGED PAGED REGARDING ABG RESULTS.
--- NOTE | 2020-03-27 19:17 | NUR ---
REPORT REPORT GIVEN TO BREANA YEPEZ, CARE ENDORSED.
--- NOTE | 2020-03-27 20:10 | NUR ---
OPEN NOTES Assumed care of patient. Patient received sedated with IV Versed, Propofol and Fentanyl -refer IV spreadsheet Pupils both sluggishly reactive to light. No some upper limb movement to stimuli. Intubated and ventilated on AC mode, Fio2 70%. Suctioned small amount of secretions. For repeat ABG later at 11pm. Oral care done. Afebrile. VS stable. on IV Levophed - to keep MAP 70 mmHg as ordered. with ongoing IV Lasix drip. Urine output good amount yellowish with some sediments. OGT - clamped, checked placement. Skin intact, unable to asses back as patient easily desaturates when fully turned to sides according to day shift RN. Placed patient's bed on lateral rotation. Right IJ TLC dressing dry and intact. Full assessment done -refer interventions
[2020-03-27 21:23] LABS: BUN/Creatinine Ratio 34.1; Calcium 9.2 mg/dL (8.5-10.1); Potassium 3.5 mmol/L (3.5-5.1)
--- NOTE | 2020-03-27 21:34 | NUR ---
RADHA OBREGON FOR CRITICAL LAB RESULT
--- NOTE | 2020-03-27 21:40 | NUR ---
CALLED BACK TALKED TO DR. GALARZA OVER THE PHONE. INFORMED OF CRITICAL LAB VALUES IN BMP RESULTS CO2 41, BUN 88 INFORMED OF POTASSIUM AND CREATININE RESULTS WELL TELEPHONE ORDER RECEIVED 1. GIVE POTASSIUM REPLACEMENT ORDERED IN [facility] 2. DIAMOX 500MG IV X 1 3. IV LASIX DRIP TO 5MG/HR
[2020-03-27] MEDS: FUROSEMIDE INJECTION 100 MG in D5W 5% 100 ML IV SCH (21:45)
[2020-03-27] MEDS ORDERED: acetaZOLAMIDE SODIUM 500 MG VL IV ONE (21:45)
--- NOTE | 2020-03-27 22:00 | NUR ---
KEPT BED ON LATERAL ROTATION
[2020-03-27] MEDS: ENOXAPARIN SOD 100 MG/1 ML SYRINGE SC SCH (22:02)
--- NOTE | 2020-03-27 22:28 | NUR ---
DIAMOX NOT AVAILABLE DIAMOX NOT IN [facility]. CANNOT FIND IN GLOBAL FIND TOO. RADHA KINGSLEY TALKED TO DR. GALARZA INFORMED OF THE ABOVE HE ORDERED IF TABLET FORM AVAILABLE GIVE TABLET WITH SAME AMOUNT. IF TABLET IS NOT AVAILABLE TOO - TO HOLD IV LASIX DRIP FOR TONIGHT
[2020-03-27] MEDS ORDERED: acetaZOLAMIDE 250 MG TAB PO ONE (22:45)
--- NOTE | 2020-03-27 23:42 | NUR ---
DR. CHINO NOTIFIED OF ABG NO NEW ORDER RECEIVED
[2020-03-28] VITALS (101 sets, daily range): BP systolic 85–134; BP diastolic 43–85
[2020-03-28] MEDS: FUROSEMIDE INJECTION 100 MG in D5W 5% 100 ML IV SCH (00:09)
[2020-03-28] MEDS: MIDAZOLAM DRIP 50 mg/50mL 50 ML IV SCH ×4 (00:12→15:33)
--- NOTE | 2020-03-28 05:30 | NUR ---
HYGIENE PATIENT CLEANED WITH CHG WIPES PARTIAL LINEN CHANGE DONE REPOSITIONED
[2020-03-28] MEDS: InsuLIN REG 1unit/0.01ml Soln (100units/ml) SC SCH ×3 (06:02→17:57)
[2020-03-28] MEDS: ACCU-CHEK COMFORT CURVE STRIP VI SCH ×3 (06:02→17:57)
[2020-03-28 06:33] LABS: Hemoglobin 14.3 g/dL (13.5-17.5); Mean Corpuscular Hemoglobin 28.4 pg (28.0-32.0); Mean Corpuscular Hgb Conc. 31.8 g/dL (32.0-36.0); Mean Corpuscular Volume 89.4 fL (80.0-100.0); Platelet Count (auto) 406 10^3/uL (140-450); Red Blood Cells 5.03 10^6/uL (4.5-5.90); Red Cell Distribution Width 13.7 % (11.8-14.3); White Blood Cell 20.5 10^3/uL (4.4-10.8)
[2020-03-28 06:50] LABS: Band Neutrophils % (manual) 0; Basophils % (manual) 0 (0.0-2.0); Blast Cells 0; Eosinophils % (manual) 0 (0-7); Metamyelocytes % 0; Myelocytes % 0; Promyelocytes % 0; Reactive Lymphocytes 0
[2020-03-28 06:51] LABS: Albumin 3.9 g/dL (3.4-5.0); Calcium 9.4 mg/dL (8.5-10.1); Magnesium 3.3 mg/dL (1.6-2.6); Potassium 3.4 mmol/L (3.5-5.1)
[2020-03-28 06:59] LABS: BUN/Creatinine Ratio 35.6; Bilirubin, Total 1.7 mg/dL (0.2-1.0); CRP High Sensitivity 1.19 mg/dL (< 0.3); Phosphorus 5.2 mg/dL (2.5-4.90); Total Protein 8.1 g/dL (6.4-8.2)
--- NOTE | 2020-03-28 07:24 | NUR ---
REPORT REPORT GIVEN TO MARLENI THAYER
--- NOTE | 2020-03-28 07:29 | NUR ---
REPORT REPORT RECEIVED FROM BREANA YEPEZ, CARE ASSUMED. PT RESTING, NO DISTRESS NOTED. VITALS REMAINING STABLE AT THIS TIME.
[2020-03-28] MEDS: POTASSIUM CHL 20MEQ/100ML 100 ML IV PRN ×2 (07:49→12:32)
[2020-03-28 07:53] LABS: Lymphocytes % (manual) 12 (10.0-50.0); Monocytes % (manual) 5 (0-12)
--- NOTE | 2020-03-28 08:20 | NUR ---
INITIAL CONTACT PHYSICAL ASSESSMENT COMPLETE. PT OBSERVED RESTING IN BED, INTUBATED ON VENTILATOR. TOLERATING VENTILATION WELL AT THIS TIME, NO DISTRESS NOTED. AFEBRILE. COUGH AND GAG NOTED. PULSES PALPABLE BILATERAL RADIAL AND PEDAL. SCD'S ON BILATERAL EXTREMITIES. OXYGEN SATURATION 100%. RESPIRATIONS ARE EVEN AND UNLABORED. OGT PRESENT, PATENT, AND CLAMPED AT THIS TIME. KILLIAN CATHETER PATENT AND SECURED BELOW BLADDER. RIGHT IJ TLC, DRESSING IS CDI. SEE SKIN/WOUND ASSESSMENT. PT ISOLATED FOR COVID19. BED LOCKED IN LOWEST POSITION, ALARMS IN PLACE. PT ON FREQUENT TURNING SCHEDULE. ALL EXTREMITIES OFF LOADED ON PILLOWS. WILL CONTINUE TO MONITOR.
[2020-03-28] MEDS: cefTRIAXone 1GM/50ML D5W 50 ML IV SCH (08:48)
--- NOTE | 2020-03-28 09:13 | NUR ---
SEDATION VACATION SEDATION VACATION HELD AT THIS TIME DUE TO HIGH LEVEL OF FIO2 REQUIREMENT ON VENTILATOR. PT DOES RESPOND TO PAINFUL STIMULI, GRIMACES, AND MOVES UPPER EXTREMITIES.
--- NOTE | 2020-03-28 09:47 | NUR ---
FAMILY PT DAUGHTER GENTRY CALLED FOR UPDATE. PASSWORD PROVIDED. UPDATED ON STATUS AND PLAN OF CARE.
[2020-03-28] MEDS: ZINC SULFATE 220mg CAP or TAB PO SCH (10:51)
[2020-03-28] MEDS: PANTOPRAZOLE 40 MG/10 ML VIAL INJ IV SCH ×2 (10:51→22:00)
[2020-03-28] MEDS: ASCORBIC ACID 1,000 MG TAB PO SCH (10:51)
[2020-03-28] MEDS: methylPREDNISolone SOD SUCC 40 MG/ML VL IV SCH ×2 (10:51→22:00)
[2020-03-28] MEDS: CHOLECALCIFEROL (VITD3) 1,000UNIT=25mCg TAB PO SCH (10:51)
[2020-03-28] MEDS: ENOXAPARIN SOD 100 MG/1 ML SYRINGE SC SCH ×2 (10:52→22:00)
--- NOTE | 2020-03-28 11:34 | NUR ---
Nutrition Followup Note Wt: 98.6 kg Pt`s covid +. Pt intubated and mildly sedated with propofol running @ 9.3 ml/hr and with propofol provding 245 kcals from fats. pt is currently NPO with no new diet order. Will f/u in 2-3 days. Est Energy needs: 0679-1842 kcals (20-23 kcal/kgBW) d/t Stg 3 CKD. Est Protein needs: 86-97 gms/day (0.8-0.9 gm/kgBW) d/t Stg 3 CKD, Will continue to monitor and reassess prn. Labs: BUN 94H, Creat 2.64H, Gluc 149H, Alb 3.9WNL BM: Pt had no BM today Skin: BS 12 high risk, full wound care details in RN doc PES: 1) Increased nutrient needs aeb pt is sedated, intubated, NPO r/t pt with no PO intake 2) Obesity aeb 166% IBW and BMI of 38.2 kg/m2 r/t pt Hx of energy intake in excess of energy needs 3) Altered nutrition related lab values elev RFTs, low GFR, hyperglycemia, hypocalcemia, mod hypoalbuminemia r/t current/chronic medical condition Comments Will continue to closely monitor pertinent labs, NPO status and skin status prn. Will followup in 2-3 days 1) Continue to closely monitor pt NPO status. 2) If pt remains NPO for the next 48 hours, consider EN nutrition support Glucerna 1.2 @ 70 ml/hr goal rate without propofol. 3) Gradually advance pt to oral Renal Specific 90gProtein,2gNa,K2,low phos diet diet when medically feasible and as tolerated .4) Continue current plan of care
--- NOTE | 2020-03-28 12:06 | NUR ---
MD VISIT ROUNDING AT BEDSIDE.
[2020-03-28 12:18] LABS: BUN/Creatinine Ratio 35.5; Calcium 9.1 mg/dL (8.5-10.1); Potassium 3.4 mmol/L (3.5-5.1)
--- NOTE | 2020-03-28 12:38 | NUR ---
MD VISIT DR.OLADELE BOO. MD AWARE OF LABS, INTAKE, URINE OUTPUT, AND IV MEDICATIONS. NEW ORDERS RECEIVED. WILL CONTINUE TO MONITOR.
[2020-03-28] MEDS ORDERED: POTASSIUM CHL 20MEQ/100ML 100 ML IV ONE (14:00)
--- NOTE | 2020-03-28 14:00 | NUR ---
Respiratory note: TITRATED FIO2 TO 50%, ABG TO FOLLOW AT 1800 PER
--- NOTE | 2020-03-28 15:26 | NUR ---
ROUNDS REPOSITIONING AND ORAL CARE COMPLETE. PT WITHDRAWAL FROM NOXIOUS STIMULI. MOVING UPPER EXTREMITIES WITH SEVERE WEAKNESS. NO DISTRESS NOTED. PT RETURNED TO SLEEP WITHOUT STIMULI. VITAL SIGNS REMAINING STABLE. WILL CONTINUE TO MONITOR.
[2020-03-28] MEDS: NOREPINEPHRINE 8 MG/250ML KIT 250 ML IV SCH (15:49)
--- NOTE | 2020-03-28 17:50 | NUR ---
Respiratory note: AT BEDSIDE IN FULL PPE FOR COVID-19 PRECAUTIONS. AT BEDSIDE FOR ABG. OBTAINED FROM RRA ON FIRST ATTEMPT.
--- NOTE | 2020-03-28 18:00 | NUR ---
RT AT BEDSIDE RT OBTAINED ABG. FIO2 INCREASED FROM 50% TO 70%.
--- NOTE | 2020-03-28 18:20 | NUR ---
Respiratory note: AT BEDSIDE IN FULL PPE FOR COVID-19 PRECAUTIONS. INCREASED FIO2 FROM 50% TO 70% DUE TO POST ABG RESULTS. MARLENI THAYER COMMUNICATED ON O2 CHANGE.
[2020-03-28] MEDS: PROPOFOL 100 ML IV SCH (18:31)
--- NOTE | 2020-03-28 18:37 | NUR ---
Respiratory note: VENT CHECK DONE BY PTS ROOM DOOR DUE TO COVID-19 PRECAUTIONS. RECEIVED PT ON VENT V12, VENT CONNECTED TO RED OUTLET AND O2 SOURCE. ALARMS ARE SET AND AUDIBLE. AMBU BAG AND MASK AT BEDSIDE. PTS CURRENT BODY TEMP READS 99.3F. NO CHANGES MADE WILL CONTINUE TO MONITOR Q2H.
--- NOTE | 2020-03-28 19:28 | NUR ---
REPORT REPORT GIVEN TO PAWEL YEPEZ, CARE ENDORSED.
--- NOTE | 2020-03-28 19:30 | NUR ---
Received report from Day shift RN. Assumed care of pt at this time. VSS.
--- NOTE | 2020-03-28 20:24 | NUR ---
Respiratory note: VENT CHECK DONE BY PTS ROOM DOOR DUE TO COVID-19 PRECAUTIONS. PTS CURRENT BODY TEMP READS 99.3F. NO CHANGES MADE WILL CONTINUE TO MONITOR Q2H.
--- NOTE | 2020-03-28 22:21 | NUR ---
Respiratory note: VENT CHECK DONE BY PTS ROOM DOOR DUE TO COVID-19 PRECAUTIONS. MARLENI ARMAS CURRENTLY AT BEDSIDE. PTS CURRENT BODY TEMP READS 99.1F. NO CHANGES MADE WILL CONTINUE TO MONITOR Q2H.
[2020-03-28 23:18] LABS: BUN/Creatinine Ratio 39.9; Calcium 8.9 mg/dL (8.5-10.1); Potassium 4.1 mmol/L (3.5-5.1)
[2020-03-29] VITALS (101 sets, daily range): BP systolic 93–121; BP diastolic 43–70
[2020-03-29 05:06] LABS: Basophils # (auto) 0.1 10 ^3/uL (0-0.2); Basophils % (auto) 0.4 % (0.0-2.0); Eosinophils # (auto) 0 10 ^3/uL (0-0.8); Eosinophils % (auto) 0.3 % (0.0-7.0); Hematocrit 42.7 % (41.0-53.0); Lymphocytes # (auto) 0.7 10 ^3/uL (0.4-5.4); Mean Corpuscular Hemoglobin 29.2 pg (28.0-32.0); Mean Corpuscular Hgb Conc. 32.7 g/dL (32.0-36.0); Mean Corpuscular Volume 89.2 fL (80.0-100.0); Monocytes # (auto) 0.3 10 ^3/uL (0-1.3); Monocytes % (auto) 2.2 % (0.0-12.0); Neutrophils # (auto) 12.8 10 ^3/uL (1.6-8.6); Neutrophils % (auto) 92.1 % (37.0-80.0); Nucleated Red Blood Cells % 0.2 %; Platelet Count (auto) 311 10^3/uL (140-450); Red Blood Cells 4.78 10^6/uL (4.5-5.90); Red Cell Distribution Width 13.8 % (11.8-14.3); White Blood Cell 13.9 10^3/uL (4.4-10.8)
[2020-03-29] MEDS: InsuLIN REG 1unit/0.01ml Soln (100units/ml) SC SCH ×4 (05:47→18:10)
[2020-03-29] MEDS: ACCU-CHEK COMFORT CURVE STRIP VI SCH ×4 (05:47→18:00)
[2020-03-29 07:16] LABS: Calcium 9.1 mg/dL (8.5-10.1); Potassium 4.2 mmol/L (3.5-5.1)
[2020-03-29 07:19] LABS: BUN/Creatinine Ratio 40.6
--- NOTE | 2020-03-29 07:30 | NUR ---
Respiratory note: LM FOR DR MADDOX TO RETURN MY CALL REGARDING PT CRITICAL ABG VALUES. RN MADE AWARE. WILL CONTINUE TO MONITOR PT.
--- NOTE | 2020-03-29 07:37 | NUR ---
End of shift note Report given to day shift RN
--- NOTE | 2020-03-29 07:47 | NUR ---
PAGED PULMONOLOGY/NEPHROLOGY DR MADDOX PAGED REGARDING MORNING G - Cholo [email or web address].Harpreet. HAS LEFT A MESSAGE FOR HIM WELL. AWAITING RESPONSE. MESSAGE LEFT FOR BORING MACHINE OPERATOR MD DR UNGER REGARDING CRITICAL BUN AND CO2, AWAITING RESPONSE.
[2020-03-29] MEDS: MIDAZOLAM DRIP 50 mg/50mL 50 ML IV SCH ×3 (08:37→22:00)
--- NOTE | 2020-03-29 08:50 | NUR ---
RETURN CALL FROM DR MADDOX/RADHA HOSPITALIST DR MADDOX NOTIFIED THIS NURSE THAT "THIS IS A HOSPITALIST PATIENT, I AM NOT ON THIS CASE". RADHA HOSPITALIST, DR CHINO TO NOTIFY OF CRITICAL MORNING LABS AND ABG, AWAITING RESPONSE.
[2020-03-29] MEDS: cefTRIAXone 1GM/50ML D5W 50 ML IV SCH (09:14)
[2020-03-29] MEDS: PANTOPRAZOLE 40 MG/10 ML VIAL INJ IV SCH ×2 (10:14→22:00)
[2020-03-29] MEDS: ENOXAPARIN SOD 100 MG/1 ML SYRINGE SC SCH ×2 (10:14→22:00)
[2020-03-29] MEDS: ASCORBIC ACID 1,000 MG TAB PO SCH (10:14)
[2020-03-29] MEDS: CHOLECALCIFEROL (VITD3) 1,000UNIT=25mCg TAB PO SCH (10:14)
[2020-03-29] MEDS: ZINC SULFATE 220mg CAP or TAB PO SCH (10:14)
--- NOTE | 2020-03-29 11:00 | NUR ---
NEPHROLOGY AT BEDSIDE THIS NURSE IN ISOLATION ROOM - TOLD TO LOOK AT CRITICAL LABS AND MORNING ABG. DR UNGER ORDERED LASIX TO BE DISCONTINUED AND TO SEND URINE TO LAB. ORDERS CARRIED OUT.
--- NOTE | 2020-03-29 11:01 | NUR ---
URINE/LAB SENT
[2020-03-29 11:04] LABS: BUN/Creatinine Ratio 44.3; Calcium 8.7 mg/dL (8.5-10.1)
[2020-03-29 11:09] LABS: Potassium 3.9 mmol/L (3.5-5.1)
[2020-03-29 11:12] LABS: Protein, Urine 19.8 mg/dL (0.0-11.9)
--- NOTE | 2020-03-29 12:30 | NUR ---
HOSPITALIST AT BEDSIDE DR CHINO UPDATED ON PATIENT'S STATUS, ORDERS FOR VENT CHANGES MADE, PEDRO JARAMILLO.
[2020-03-29] MEDS: fentaNYL Drip 2500mCg/250mlNS 250 ML IV SCH ×2 (13:00→22:00)
[2020-03-29] MEDS: PROPOFOL 100 ML IV SCH (14:38)
[2020-03-29] MEDS: NOREPINEPHRINE 8 MG/250ML KIT 250 ML IV SCH (15:49)
--- NOTE | 2020-03-29 20:00 | NUR ---
ADMITTED ON 03/21/20 WITH FEVER, DYSPNEA AND COUGH. INTUBATED IN OUR ER AND BROUGHT TO ICU. RESPIRATORY FAILURE. DREA. RESPIRATORY ISOLATION. SEDATED WITH VERSED AND FENTANYL. VERY HYPOACTIVE GAG. ORAL CARE DONE. ETT SUCTIONED FOR NO SECRETIONS. LUNGS CLEAR. ABDOMEN SOFT . KILLIAN IN PLACE TO DOWN DRAIN BAG. SEDIMENT IN URINE. ALL PULSES ARE PALPABLE. EXTREMITIES ARE WARM. NO FEVER. ON AC 18, RR 18. FIO2 50% WITH AN O2 SATURATION OF 99%. RIJ CENTRAL LINE SITE IS BLOODY. HAS 2 PERIPHERAL IV LINES . BOTH FLUSHED WITH NORMAL SALINE. SKIN INTACT.
--- NOTE | 2020-03-29 21:00 | NUR ---
ALL IV TUBINGS AND IV BAGS CHANGED OUT.
--- NOTE | 2020-03-29 22:00 | NUR ---
REPOSITIONED TO LEFT SIDE WITH BED TECHNOLOGY. TOLERATED IT WELL. NOTHING SUCTIONED FROM THE ETT. ORAL CARE DONE. GLUCERNA AT 10CC/HR. RESIDUAL WAS 10CC. NSR WITH BBB. . NO ECTOPY.
[2020-03-29 22:13] LABS: BUN/Creatinine Ratio 51.9; Potassium 3.5 mmol/L (3.5-5.1)
[2020-03-30] VITALS (101 sets, daily range): BP systolic 83–118; BP diastolic 31–68
--- NOTE | 2020-03-30 | NUR ---
REPOSITIONED TO BACK. DID WELL WITH TURNING. NOTHING SUCTIONED FROM THE ETT. ORAL CARE GIVEN. LUNGS CLEAR. ABG WAS WORSE. .FIO2 INCREASED TO 60% BY RT. ABDOMEN ROUND, LARGE AND SOFT. KILLIAN DRAINING YELLOW LIQUID WITH SEDIMENT. ALL EXTREMITIES WARM. ALL PULSES ARE PALPABLE.NSR WITH BBB. NO ECTOPY. HOLDING BP ABOVE 100.
--- NOTE | 2020-03-30 02:00 | NUR ---
CENTRAL LINE IS LEAKING DARK BLOOD. CENTRAL LINE DRESSING CHANGE. NOTHING SUCTIONED FROM THE ETT. ORAL CARE GIVEN. SEDIMENT IN URINE. NO FEVER. HOLDING BP WELL.
[2020-03-30] MEDS: MIDAZOLAM DRIP 50 mg/50mL 50 ML IV SCH ×3 (03:10→16:39)
--- NOTE | 2020-03-30 03:30 | NUR ---
CHG BATH AND COMPLETE LINEN CHANGE. CENTRAL LINE DRESSING CHANGE, SNOW AT SITE. COMPLETELY SEDATED. AM LABS DRAWN
[2020-03-30 04:58] LABS: Calcium 7.8 mg/dL (8.5-10.1); Potassium 3.2 mmol/L (3.5-5.1)
[2020-03-30 05:02] LABS: BUN/Creatinine Ratio 56.9; Bilirubin, Total 0.8 mg/dL (0.2-1.0); Total Protein 6.5 g/dL (6.4-8.2)
[2020-03-30] MEDS: ACCU-CHEK COMFORT CURVE STRIP VI SCH ×4 (06:00→18:00)
[2020-03-30] MEDS: InsuLIN REG 1unit/0.01ml Soln (100units/ml) SC SCH ×4 (06:00→17:36)
--- NOTE | 2020-03-30 08:15 | NUR ---
Family updated on pt status Family of ROSI MARIVEL updated on patient's status and condition after password verification. All questions and concerns addressed. Patient's daughter Tequila verbalized understanding.
[2020-03-30] MEDS: ZINC SULFATE 220mg CAP or TAB PO SCH (09:10)
[2020-03-30] MEDS: PANTOPRAZOLE 40 MG/10 ML VIAL INJ IV SCH ×2 (09:10→22:00)
[2020-03-30] MEDS: CHOLECALCIFEROL (VITD3) 1,000UNIT=25mCg TAB PO SCH (09:10)
[2020-03-30] MEDS: ASCORBIC ACID 1,000 MG TAB PO SCH (09:10)
[2020-03-30] MEDS: cefTRIAXone 1GM/50ML D5W 50 ML IV SCH (09:11)
[2020-03-30] MEDS ORDERED: DOPamine 1600MCG/ML D5W 250 ML IV SCH (10:00)
--- NOTE | 2020-03-30 11:36 | NUR ---
WOUND CARE NOTE: Wound care in for skin integrity monitoring. Patient continue resting in ICU bed in Rm. 110. Patient is intubated, sedated and mechanically ventilated. Patient appears to be in no pain using Gould Crews Faces Pain Scale. Her Shay score is 14. Patient remain wound free other than R dorsal hand puncture wound from IV site, staff covered patient's bleeding puncture Rt hand wound with Opti foam gentle dressing per MD order. Patient continue receiving BID/PRN cleaning and application of Barrier cream to sacral/buttocks as preventative. RECOMMENDATION: Continuation of all wound care orders prescribed by MD, continue with skin/wound plan of care, continue monitoring by wound care while patient is mechanically ventilated and Shay score is <18. Addendum: 03/30/20 at 1803 by Susannah Victoria RN Amended: Links added.
[2020-03-30] MEDS: SOD CHL 0.45% 1,000 ML IV SCH ×2 (13:00→23:20)
[2020-03-30] MEDS: POTASSIUM CHL 20MEQ/100ML 100 ML IV SCH ×2 (14:30→16:00)
[2020-03-30] MEDS: PROPOFOL 100 ML IV SCH (14:38)
[2020-03-30] MEDS: NOREPINEPHRINE 8 MG/250ML KIT 250 ML IV SCH ×2 (15:49→18:30)
--- NOTE | 2020-03-30 16:08 | NUR ---
Nutrition Followup Note Wt: 99.0 kg Pt`s covid +. Pt intubated and mildly sedated. Pt is currently NPO with an NG tube, with EN support Glucerna 1.2 @ 20ml/hr per RN. Note Glucerna 1.2 goal rate of 70ml/hr as tolerated and per MD approval. Will f/u in 2-3 days. Est Energy needs: 8139-5271 kcals (20-23 kcal/kgBW) d/t Stg 3 CKD. Est Protein needs: 86-97 gms/day (0.8-0.9 gm/kgBW) d/t Stg 3 CKD, Will continue to monitor and reassess prn. Labs: BUN 124 H, Creat 2.18 H, Gluc 142 H, Alb 3.0 L BM: Pt had no BM today Skin: BS 16 mod risk, full wound care details in RN doc PES: 1) Increased nutrient needs aeb pt is sedated, intubated, NPO r/t pt with no PO intake 2) Obesity aeb 166% IBW and BMI of 38.2 kg/m2 r/t pt Hx of energy intake in excess of energy needs 3) Altered nutrition related lab values elev RFTs, low GFR, hyperglycemia, hypocalcemia, mod hypoalbuminemia r/t current/chronic medical condition Comments Will continue to closely monitor pertinent labs, NPO status and skin status prn. Will followup in 2-3 days 1) Continue to closely monitor pt NPO status. 2) If pt remains NPO for the next 48 hours, consider EN nutrition support Glucerna 1.2 @ 70 ml/hr goal rate without propofol. 3) Gradually advance pt to oral Renal Specific 90gProtein,2gNa,K2,low phos diet diet when medically feasible and as tolerated .4) Continue current plan of care
--- NOTE | 2020-03-30 16:52 | NUR ---
HOSPITALIST AT BED SIDE UPDATED ON PT STATUS, VENT SETTINGS, ABG, MORNING LABS AND RECOMMENDATIONS AND ADDED DRIPS. ALSO AWARE OF PTS INCREASE OF BLEEDING A RIGHT HAND PUNCTURE SITE, ETT SUCTIONING AND CENTRAL INSERTION AREA. ORDERS TO DECREASE FI02 TO 50% TONIGHT AND REPEAT ABG IN MORNING WITH CHEST XRAY. AWARE OF LOVENOX NON ADMINISTRATION THIS MORNING. MD ORDERED LOVENOX 40MG BID TO START TOMORROW MORNING. CHANGE NON TITRATABLE DOPAMINE TO TITRATABLE. ORDERS WILL BE CARRIED OUT.
[2020-03-30] MEDS: DOPamine 1600MCG/ML D5W 250 ML IV SCH (17:23)
--- NOTE | 2020-03-30 17:30 | NUR ---
COOLING MEASURES APPLIED - ICE PACKS, WILL CONTINUE TO MONITOR.
--- NOTE | 2020-03-30 18:43 | NUR ---
ECG CHANGES/CONTACT HOSPITALIST PATIENT'S BLOOD PRESSURE DECREASED, INCREASED DOPAMINE PER MD DR CHINO TO KEEP SPB ABOVE 90 OR MAP GREATER 65. PATIENT'S HEART RATE INCREASING ABOVE 120 DOPAMINE DRIP INCREASED. ELEVATED T WAVE AND CONTINUED BBB. DAVID PERFORMED BY CHILD SUPPORT OFFICER STUDENT CAMPBELL. LEVOPHED STARTED AND DECREASED DOPAMINE DRIP TO 5 MCG/KG/MIN. SPOKE WITH DR BARROW, UPDATED ON PATIENT'S STATUS, ECG READING AND CURRENT DRIPS. DR BARROW AGREED AND ORDERED A 500 ML BOLUS OF LACTATE RINGER AND CONTINUE ON DRIPS ORDERED TO KEEP SBP OVER 90 AND MAP GREATER THAN 65. ORDERS WILL BE ENTERED AND CARRIED OUT.
--- NOTE | 2020-03-30 19:10 | NUR ---
END OF SHIFT NOTE ORDERS CARRIED OUT ORDERED BY DR BARROW. PATIENT'S VS STABLE AT THIS TIME, FIO2 50%. PATIENT CARE ENDORSED TO GAS ENGINEER RN.
[2020-03-30] MEDS ORDERED: LACTATED RINGER'S 500 ML IV ONE (19:30)
--- NOTE | 2020-03-30 19:30 | NUR ---
500cc LR bolus going
--- NOTE | 2020-03-30 20:00 | NUR ---
ADMITTED ON 03/21/20 WITH FEVER, DYSPNEA AND COUGH. INTUBATED IN OUR ER AND BROUGHT TO ICU. RESPIRATORY FAILURE. DREA. RESPIRATORY ISOLATION. SEDATED WITH VERSED AND FENTANYL. VERY HYPOACTIVE GAG. ORAL CARE DONE. ORALLY INTUBATED. ORAL NGT WITH GLUCERNA AT 40CC/HR. ABDOMEN SOFT. NO BM. KILLIAN IN PLACE DRAINING YELLOW LIQUID WITH SEDIMENT. USING BED TO TURN PATIENT. GRAMAJO SECRETIONS SUCTIONED FROM THE ETT.
--- NOTE | 2020-03-30 22:00 | NUR ---
DOPAMINE DOWN TO THE ORDERED 2 MCG/KG/MIN. LEVOPHED INCREASED. VSS. NSR WITHOUT ECOTOPY
[2020-03-31] VITALS (97 sets, daily range): BP systolic 76–177; BP diastolic 33–135
[2020-03-31] MEDS: MIDAZOLAM DRIP 50 mg/50mL 50 ML IV SCH ×2 (01:59→21:42)
[2020-03-31] MEDS: fentaNYL Drip 2500mCg/250mlNS 250 ML IV SCH ×2 (02:00→21:43)
--- NOTE | 2020-03-31 02:00 | NUR ---
REPOSITIONED TO RIGHT SIDE. USING BED FOR TURNING. NSR WITH BBB. DOPAMINE RENAL DOSE, NO TITRATION. LEVOPHED KEEPING SYSTOLIC BP 94-100
[2020-03-31] MEDS: DOPamine 1600MCG/ML D5W 250 ML IV SCH ×2 (02:05→20:05)
--- NOTE | 2020-03-31 04:10 | NUR ---
CHG BATH AND PARTIAL LINEN CHANGE. NO SKIN ISSUES. LOW GRADE FEVER. RIJ TRIPLE LUMEN SNOW DRESSING REMOVED AND NEW REGULAR DRESSING WITH BIOPATCH APPLIED.
[2020-03-31 05:08] LABS: Albumin 2.9 g/dL (3.4-5.0); Calcium 8.4 mg/dL (8.5-10.1); Potassium 3.8 mmol/L (3.5-5.1)
[2020-03-31 05:11] LABS: BUN/Creatinine Ratio 55.9; Bilirubin, Total 0.7 mg/dL (0.2-1.0); Total Protein 6.5 g/dL (6.4-8.2)
[2020-03-31] MEDS: NOREPINEPHRINE 8 MG/250ML KIT 250 ML IV SCH ×2 (06:00→21:43)
[2020-03-31] MEDS: ACCU-CHEK COMFORT CURVE STRIP VI SCH ×4 (06:01→18:10)
[2020-03-31] MEDS: InsuLIN REG 1unit/0.01ml Soln (100units/ml) SC SCH ×4 (06:19→18:08)
--- NOTE | 2020-03-31 06:49 | NUR ---
DID NOT TOLERATE TURNING TO THE LEFT SIDE AFTER 50 MINUTES
--- NOTE | 2020-03-31 07:30 | NUR ---
REPORT REPORT RECEIVED FROM VANDANA RNBRODY. PT IN ISOLATION FOR +COVID. VISUALIZED THROUGH SLIDING GLASS DOORS. PT REMAINS ON THE VENTILATOR AND IS SEDATED. CONTINUE TO MONITOR.
--- NOTE | 2020-03-31 08:10 | NUR ---
PT TEACHING PT UNABLE TO BENEFIT FROM PT TEACHING AT THIS TIME HE IS SEDATED WHILE INTUBATED Addendum: 03/31/20 at 2039 by Stephanie Roach RN Amended: Links added.
--- NOTE | 2020-03-31 08:10 | NUR ---
ASSESSMENT PT IN ISOLATION FOR + COVID 19. PT IS SEDATED WHILE INTUBATED. NO SPONTANEOUS MOVEMENT NOTED. PUPILS 3 AND SLUGGISH. VENTILATOR SETTINGS OF: 8 FR ETT/24 AT THE LIP, AC 18, TV 550, 45% FIO2 AND PEEP OF 14. LUNGS CLEAR SAND DIMINISHED, RIGHT MORE THAN THE LEFT. SUCTION ETT FOR THICK CREAMY FLUID AND ORALLY FOR BLOOD TINGED. O2 SAT OF 96%. TELE SR [address] IN LEADS I AND II AND BBB. PALPABLE PULSES WITH NO EDEMA NOTED. SCDS TO BLE. ABD SOFT WITH HYPOACTIVE BOWEL SOUNDS. OGT WITH + PLACEMENT AND 5 ML RESIDUAL NOTED. KILLIAN CATHETER DRAINING YELLOW URINE WITH SEDIMENT. SACRAL OPTIFOAM IN PLACE WITH SKIN UNDER CLER. OLD SURGICAL SCAR NOTED TO LEFT HIP/THIGH. REPOSITIONED TO THE RIGHT. BED IN LOW POSITION AND WITH SIDE RAILS UP X4 FOR PT SAFETY. CONTINUE TO MONITOR.
[2020-03-31] MEDS: PANTOPRAZOLE 40 MG/10 ML VIAL INJ IV SCH ×2 (09:58→21:58)
[2020-03-31] MEDS: cefTRIAXone 1GM/50ML D5W 50 ML IV SCH (09:58)
[2020-03-31] MEDS: ENOXAPARIN SOD 40 MG/0.4 ML SYRINGE SC SCH ×2 (09:59→21:58)
[2020-03-31] MEDS: CHOLECALCIFEROL (VITD3) 1,000UNIT=25mCg TAB PO SCH (09:59)
[2020-03-31] MEDS: ZINC SULFATE 220mg CAP or TAB PO SCH (09:59)
[2020-03-31] MEDS: ASCORBIC ACID 1,000 MG TAB PO SCH (09:59)
[2020-03-31] MEDS: SOD CHL 0.45% 1,000 ML IV SCH ×2 (09:59→19:00)
--- NOTE | 2020-03-31 11:10 | NUR ---
Pt desat to 87%, increased FIO2 TO 60%. SPO2 now maintaining 91%. Notified RN of changes.
[2020-03-31] MEDS: PROPOFOL 100 ML IV SCH (14:38)
--- NOTE | 2020-03-31 15:25 | NUR ---
MD VISIT DR CHINO HERE TO CHECK ON THE PT. I UPDATED HIM ON THE PT'S CURRENT CONDITION. I LET HIM KNOW THAT THE PT WAS ON 45% THIS MORNING BUT HAD TO BE INCREASED TO 50 AND THEN 60% DUE TO LOW SATS AND THAT HE HAD A FEVER OF 100.4 AND WAS GIVEN TYLENOL. HE WANTS FIO2 CHANGED TO 50% NOW, DECREASE PEEP TO 12 IN ONE HOUR AND THEN AN ABG ONE HOUR AFTER THAT. CALLED AND SPOKE WITH RT BRADLEY, MAKING HER AWARE OF NEW ORDERS.
--- NOTE | 2020-03-31 15:30 | NUR ---
TITRATED FIO2 DOWN TO 50% ORDERED. SPO2 RANGING 88-91%. RN AWARE OF CHANGES.
--- NOTE | 2020-03-31 16:40 | NUR ---
PT NOT TOLERATING CHANGES, SPO2 82%. INCREASED FIO2 TO 100%. PT WITH COUGHING SPELLS, SUCTIONED THIN BLOODY SECRETIONS. TITRATED FIO2 DOWN TO 70%, SPO2 92%. NOTIFIED RN.
--- NOTE | 2020-03-31 17:15 | NUR ---
MD/PHONE SPOKE WITH DR CHINO BY PHONE, AND MADE AWARE THAT PT DID NOT TOLERATED THE CHSNGE DOWN TO 50% FIO2. INFORMED HIM THAT PT EVENTUALLY DROPPED DOWN TO 81-82 % AND HAD TO HAVE O2 TURNED ALL THE WAY UP TO 100% FIO2 TO ALLOW O2 SATS TO RECOVER. FIO2 CURRENTLY AT 75% WITH O2 SAT 90-92%. NO NEW ORDERS RECEIVED. ASKED IF HE COULD CALL AND UPDATE THE PT'S DAUGHTER, GENTRY, AND HE STATED HE WOULD CALL HER TOMORROW WHEN HE MAKES ROUNDS.
--- NOTE | 2020-03-31 18:50 | NUR ---
O2 SATS DOWN TO 87-88% AND NOTIFIED RT, SHE WAS IN ANOTHER ISOLATION ROOM AND ASKED ME TO INCREASE THE FIO2 TO 100%. ETT SUCTION DONE WITH SMALL AMOUNT OF THIN RED BLOOD. I ALSO SUCTIONED THIS AROUND 1630. CONTINUE TO MONITOR.
--- NOTE | 2020-03-31 19:00 | NUR ---
PATIENTS HEART RATE WAS UP, SBP A LITTLE DOWN, RR 29. PLACED ON 100% BY RN. PATIENT CALMED DOWN. LEFT THE SEDATION AT CURRENT LEVELS. HUNG THE NEW MAINTENANCE IV. REPORT RECEIVED.
--- NOTE | 2020-03-31 19:30 | NUR ---
REPORT REPORT GIVEN TO Tom SKINNER RN.
--- NOTE | 2020-03-31 20:00 | NUR ---
ADMITTED ON 03/21/20 WITH FEVER, DYSPNEA AND COUGH. INTUBATED IN OUR ER AND BROUGHT TO ICU. RESPIRATORY FAILURE. DREA. RESPIRATORY ISOLATION. SEDATED WITH VERSED AND FENTANYL. VERY HYPOACTIVE GAG. ORAL CARE DONE. ORALLY INTUBATED. ORAL NGT WITH GLUCERNA AT 60 CC/HR. RESIDUAL WAS 10CC OF CREAMY FLUID. ORALLY INTUBATED. ORAL NGT. ORAL CARE DONE. CLEAR/CLOUDY SECRETIONS FROM THE ORAL CAVITY. SUCTIONED ETT FOR NO SECRETIONS. LUNGS CLEAR. ABDOMEN LARGE, ROUND AND SOFT. NO BM. KILLIAN IN PLACE DRAINING A CLEAR YELLOW LIQUID WITH SEDIMENT. NO EDEMA. ALL EXTREMITIES ARE WARM . ALL PULSES PALPABLE. SCDS ON. BED TURNING THE PATIENT RIGHT. TOLERATING IT WELL. SBP SUPPORT WITH LEVOPHED. ( UNCHANGED RATE SINCE YESTERDAY WHEN IT STARTED). DOPAMINE ON FOR RENAL PERFUSION. MAINTENANCE RATE INCREASED TODAY FROM 75CC/HR TO 120CC/HR. CXR REPORT UNCHANGED. ATTEMPTED SEVERAL TIMES TODAY TO ADJUST THE FIO2. UNSUCCESSFUL. PEEP REMAINS THE SAME AT 14. CURRENTLY ON 100% FIO2. O2 SAT IS NOW UP TO 95%. IT TOOK AWHILE AFTER THE 0 EPISODE TO GAIN BACK THE OXYGEN BALANCE.
--- NOTE | 2020-03-31 22:00 | NUR ---
REMAINS ON 100%. O2 SAT ONLY 93%. RR 29. HR 105. WATERY BLOOD SUCTIONED FROM THE ETT. ORALLY, NO BLOOD. ABDOMEN SOFT. ADEQUATE URINE OUTPUT. TOLERATING TUBE FEEDING. RESIDUAL FROM THE ETT IS MINIMAL. NO BM. REPOSITIONED TO BACK.
[2020-04-01] VITALS (98 sets, daily range): BP systolic 81–132; BP diastolic 40–99
--- NOTE | 2020-04-01 | NUR ---
FEBRILE 101.1. HR 114. RR 31. O2 SATURATION DROPPING FROM 93 TO 90 SLOWLY. TYLENOL GIVEN. ICE BAGS TO BACK OF NECK AND AXILLA. MAX FENTANYL AND VERSED. ADDED PROPOFOL AT 0100 AT 5 MCG.
[2020-04-01] MEDS: ACETAMINOPHEN 500 MG TAB PO PRN (00:01)
--- NOTE | 2020-04-01 00:01 | NUR ---
COMPATABILITIES CHECKED.
[2020-04-01] MEDS: PROPOFOL 100 ML IV SCH (01:00)
--- NOTE | 2020-04-01 01:00 | NUR ---
TEMP COMING DOWN. HR COMING DOWN TO 104. O2 SAT COMING UP.
[2020-04-01] MEDS: SOD CHL 0.45% 1,000 ML IV SCH ×3 (01:10→14:15)
--- NOTE | 2020-04-01 02:45 | NUR ---
SBP 88. RESTARTED LEVOPHED AT 2 MCG.
--- NOTE | 2020-04-01 03:00 | NUR ---
O2 SATS DROPPED INTO THE 80S. RT GAVE A TREATMENT. WE REPOSITIONED THE O2 SAT PROBE SEVERAL TIMES. HANDS BEING THE LOWEST SATURATION IN THE 70S. RT TRIED PC VENTILATION . IT BROUGHT THE O2 SATURATION UP TO 91% . CALL INTO THE HOSPITALIST. RECEIVED AN ORDER FOR LASIX 20 IV. 2ND CALL PLACED FOR VENTILATOR ORDERS
[2020-04-01] MEDS ORDERED: FUROSEMIDE 20 MG/2 ML VIAL IV ONE (04:15)
--- NOTE | 2020-04-01 04:20 | NUR ---
Respiratory note: RECEIVED PAGE FROM GRANULATING BLENDER THAT PATIENT'S SPO2 DECREASING WHILE ON 100% FIO2 INTO THE 80'S AND NOT ABLE TO RECEOVER. SUCTIONED PATIENT AND RECEIVED MODERATE AMOUNTS OF PINK FROTH RETURN. PT SPO2 STILL 82%. SWITCHED VENT SETTINGS TO PRESSURE CONTROL OF: 24/, RR 18, I.T. 0.9, FIO2 100%. PT BEGAN IMPROVING. SPO2 NOW 92-93%. RN AT BEDSIDE. CALLED HOSPITALIST YORDAN TO REQUEST FOR PRESSURE CONTROL ORDER. WILL ENDORSE CARE TO DAY SHIFT RT.
[2020-04-01] MEDS ORDERED: FUROSEMIDE 20 MG/2 ML VIAL ONE (04:26)
--- NOTE | 2020-04-01 04:44 | NUR ---
PATIENT IS DOING WELL. NSR 95. SBP FELL. INCREASING THE LEVOPHED. O2 SAT IS 94%. BALWINDER FARR CALLED BACK AND GAVE US ORDERS FOR PC VENTILATION. HE IS NOW ON A PRESSURE OF 24, RATE OF 18, FIO2 100%, I TIME 0.9 , PEEP OF 14.
[2020-04-01 05:04] LABS: Albumin 2.5 g/dL (3.4-5.0); Calcium 7.9 mg/dL (8.5-10.1); Potassium 3.8 mmol/L (3.5-5.1)
[2020-04-01 05:07] LABS: Bilirubin, Total 0.4 mg/dL (0.2-1.0); Total Protein 5.6 g/dL (6.4-8.2)
[2020-04-01] MEDS: DOPamine 1600MCG/ML D5W 250 ML IV SCH ×2 (05:29→23:03)
[2020-04-01] MEDS: MIDAZOLAM DRIP 50 mg/50mL 50 ML IV SCH ×3 (05:30→06:56)
[2020-04-01] MEDS: InsuLIN REG 1unit/0.01ml Soln (100units/ml) SC SCH ×5 (06:00→23:17)
[2020-04-01] MEDS: ACCU-CHEK COMFORT CURVE STRIP VI SCH ×5 (06:00→23:53)
--- NOTE | 2020-04-01 09:25 | NUR ---
RT NOTE: PT WAS PLACED BACK ON PREVIOUS AC SETTINGS PER DR CHINO. PTS RR INCREASED TO 30, AND SPO2 DECREASED TO 80%. PT WAS PLACED BACK ON PREVIOUS PRESSURE CONTROL SETTINGS. RN MADE AWARE. PAGED DR CHINO WITH RESULTS.
[2020-04-01] MEDS: ASCORBIC ACID 1,000 MG TAB PO SCH (10:00)
[2020-04-01] MEDS: PANTOPRAZOLE 40 MG/10 ML VIAL INJ IV SCH ×2 (10:00→21:51)
[2020-04-01] MEDS: cefTRIAXone 1GM/50ML D5W 50 ML IV SCH (10:00)
[2020-04-01] MEDS: ZINC SULFATE 220mg CAP or TAB PO SCH (10:00)
[2020-04-01] MEDS: CHOLECALCIFEROL (VITD3) 1,000UNIT=25mCg TAB PO SCH (10:00)
[2020-04-01] MEDS: ENOXAPARIN SOD 40 MG/0.4 ML SYRINGE SC SCH ×2 (10:00→21:51)
--- NOTE | 2020-04-01 10:15 | NUR ---
RT NOTE: PER DR CHINO TO PLACE PT BACK ON PREVIOUS AC SETTINGS AGAIN NOW THAT PT IS MORE SEDATED. PT DID NOT TOLERATE, SPO2 DECREASED TO 82%, RR INCREASED TO 30 PTS WORK OF BREATHING INCREASED PT HAD VENTILATOR ASYNCHRONY. PT WAS PLACED BACK ON PREVIOUS PC SETTINGS.
--- NOTE | 2020-04-01 12:04 | NUR ---
Nutrition Followup Note Wt: 99.0 kg Pt`s covid +. Pt intubated and mildly sedated with propofol running at 3 ml/hr to provide 83 kcal from lipids. Pt is currently NPO with an NG tube, with EN support Glucerna 1.2 @ 60ml/hr per RN note. Consider Glucerna 1.2 goal rate of 70ml/hr as tolerated and per MD approval. Will f/u in 2-3 days. Est Energy needs: 5412-5768 kcals (20-23 kcal/kgBW) d/t Stg 3 CKD. Est Protein needs: 86-97 gms/day (0.8-0.9 gm/kgBW) d/t Stg 3 CKD, Will continue to monitor and reassess prn. Labs: BUN 95H, Creat 2.02H, Alb 2.5L, Ca 7.9L, GLUC 135H BM: Pt had no BM today, gastric 5 ml per RN note Skin: BS 17 mod risk, full wound care details in RN doc PES: 1) Increased nutrient needs aeb pt is sedated, intubated, NPO r/t pt with no PO intake 2) Obesity aeb 166% IBW and BMI of 38.2 kg/m2 r/t pt Hx of energy intake in excess of energy needs 3) Altered nutrition related lab values elev RFTs, low GFR, hyperglycemia, hypocalcemia, mod hypoalbuminemia r/t current/chronic medical condition Comments Will continue to closely monitor pertinent labs, NPO status and skin status prn. Will followup in 2-3 days 1) Continue to closely monitor pt NPO status. 2) If pt remains NPO for the next 48 hours, consider EN nutrition support Glucerna 1.2 @ 70 ml/hr goal rate without propofol. 3) Gradually advance pt to oral Renal Specific 90gProtein,2gNa,K2,low phos diet diet when medically feasible and as tolerated .4) Continue current plan of care
--- NOTE | 2020-04-01 12:07 | NUR ---
DR. UNGER HERE TO SEE PATIENT. SEE MD NOTES AND EMR FOR ANY NEW ORDERS.
--- NOTE | 2020-04-01 14:20 | NUR ---
DR. SHOTR HERE TO SEE PATIENT. SEE MD NOTES AND EMR FOR ANY NEW ORDERS.
--- NOTE | 2020-04-01 14:39 | NUR ---
SPOKE TO DAUGHTER TYSHAWN REGARDING PICC LINE, CONSENT OBTAINED AT THIS TIME.
[2020-04-01] MEDS ORDERED: BUDESONIDE (INHALATION) 0.5 MG/2 ML NEB NEB ONE (14:45)
[2020-04-01] MEDS: PIPERACILLIN-TAZOB 2.25GM 50 ML IV SCH (17:36)
[2020-04-01 17:48] LABS: INR 1.01 (0.9-1.15)
--- NOTE | 2020-04-01 19:00 | NUR ---
Opening shift note: Primary RN Ata received report on patient. Pt currently intubated ETT 8.0/ 24cm @LL, VENT settings on pressure control, O2 Saturation 91%. Bilateral lung sounds coarse/wheezy. Farrell catheter draining via gravity with yellow urine. Safety precautions in place. Will continue to monitor. Patient on isolation for COVID-19.
--- NOTE | 2020-04-01 20:00 | NUR ---
PICC line nurse at bedside.
--- NOTE | 2020-04-01 20:44 | NUR ---
PICC line placement Patient/Patient significant other educated on need for PICC line placement. All risks and benefits explained and all questions and concerns addressed prior to procedure. Noted past medical history and allergies with no contraindications. INR and Plt counts within acceptable range. 6 fr PICC line inserted via RIGHT BASILIC vein using [employer] US and Tip Location System. Sterile technique with maximum barrier precautions utilized. Blood return obtained from each of 3 lumens and each flushed easily with NS using proper technique. PICC secured with Stat-lock; biodisc and occlusive dressing applied. Stat portable chest x-ray obtained for PICC tip placement. *Baseline Arm Circumference 39 CM. INSIDE LENGHT 45 CM OUTSIDE LENGHT 0 CM PICC lot # [id number]. Note:
[2020-04-01] MEDS ORDERED: LIDOCAINE 1% (LOCAL ANESTH.) PF 5ml SDV ID ONE (20:45)
--- NOTE | 2020-04-01 21:00 | NUR ---
Sedation vacation: Sedation vacation held at this time d/t patient's critical condition.
--- NOTE | 2020-04-01 21:33 | NUR ---
OK to use PICC line Xray completed. OK to use PICC line .
--- NOTE | 2020-04-01 21:45 | NUR ---
Radiology: RN received call from radiology that they recommend for PICC line to be withdrawn by 3cm. RN paged PICC line nurse.
[2020-04-01] MEDS: SODIUM CHLOR 0.9% PF (SALINE LOCK) 10ML VIAL/SYR IV SCH (21:51)
[2020-04-01] MEDS: BUDESONIDE (INHALATION) 0.5 MG/2 ML NEB NEB SCH (22:00)
[2020-04-02] VITALS (97 sets, daily range): BP systolic 89–122; BP diastolic 51–76
--- NOTE | 2020-04-02 02:00 | NUR ---
Bed bath given: Patient was given a bed bath and linen change was provided. Opti foam changed. Patient tolerated intervention well.
[2020-04-02] MEDS: SOD CHL 0.45% 1,000 ML IV SCH (03:35)
[2020-04-02 04:38] LABS: Basophils # (auto) 0.1 10 ^3/uL (0-0.2); Basophils % (auto) 0.4 % (0.0-2.0); Eosinophils # (auto) 0.4 10 ^3/uL (0-0.8); Eosinophils % (auto) 2.9 % (0.0-7.0); Hemoglobin 10.6 g/dL (13.5-17.5); Lymphocytes # (auto) 0.6 10 ^3/uL (0.4-5.4); Lymphocytes % (auto) 3.9 % (10.0-50.0); Mean Corpuscular Hemoglobin 28.9 pg (28.0-32.0); Mean Corpuscular Volume 90.3 fL (80.0-100.0); Monocytes # (auto) 0.7 10 ^3/uL (0-1.3); Monocytes % (auto) 4.5 % (0.0-12.0); Neutrophils # (auto) 13.5 10 ^3/uL (1.6-8.6); Neutrophils % (auto) 88.3 % (37.0-80.0); Platelet Count (auto) 167 10^3/uL (140-450); Red Blood Cells 3.66 10^6/uL (4.5-5.90); Red Cell Distribution Width 14.2 % (11.8-14.3); White Blood Cell 15.2 10^3/uL (4.4-10.8)
[2020-04-02 04:56] LABS: Albumin 2.4 g/dL (3.4-5.0); Calcium 8.3 mg/dL (8.5-10.1); Potassium 3.9 mmol/L (3.5-5.1)
[2020-04-02 04:59] LABS: BUN/Creatinine Ratio 39.6; Bilirubin, Total 0.5 mg/dL (0.2-1.0); Total Protein 5.8 g/dL (6.4-8.2)
[2020-04-02] MEDS: InsuLIN REG 1unit/0.01ml Soln (100units/ml) SC SCH ×3 (05:41→17:21)
[2020-04-02] MEDS: PIPERACILLIN-TAZOB 2.25GM 50 ML IV SCH ×3 (06:00→12:00)
[2020-04-02] MEDS: ACCU-CHEK COMFORT CURVE STRIP VI SCH ×3 (06:00→17:21)
[2020-04-02] MEDS ORDERED: SOD CHL 0.45% 1,000 ML IV SCH (09:00)
[2020-04-02] MEDS: PANTOPRAZOLE 40 MG/10 ML VIAL INJ IV SCH ×2 (10:00→22:00)
[2020-04-02] MEDS: ASCORBIC ACID 1,000 MG TAB PO SCH (10:00)
[2020-04-02] MEDS: SODIUM CHLOR 0.9% PF (SALINE LOCK) 10ML VIAL/SYR IV SCH ×2 (10:00→22:00)
[2020-04-02] MEDS: CHOLECALCIFEROL (VITD3) 1,000UNIT=25mCg TAB PO SCH (10:00)
[2020-04-02] MEDS: ZINC SULFATE 220mg CAP or TAB PO SCH (10:00)
[2020-04-02] MEDS: BUDESONIDE (INHALATION) 0.5 MG/2 ML NEB NEB SCH ×2 (10:25→22:16)
[2020-04-02] MEDS: FREE WATER GT SCH ×2 (12:00→17:21)
[2020-04-02] MEDS: DOPamine 1600MCG/ML D5W 250 ML IV SCH (13:06)
[2020-04-02] MEDS: fentaNYL Drip 2500mCg/250mlNS 250 ML IV SCH (13:07)
--- NOTE | 2020-04-02 14:10 | NUR ---
Respiratory note: TITRATED FIO2 TO 80%
[2020-04-02] MEDS: PROPOFOL 100 ML IV SCH (14:38)
[2020-04-02] MEDS: NOREPINEPHRINE 8 MG/250ML KIT 250 ML IV SCH (15:49)
[2020-04-02] MEDS: PIPERACILLIN-TAZOB 3.375GM 100 ML IV SCH (17:30)
--- NOTE | 2020-04-02 18:21 | NUR ---
PICC line Retraction 5F TRIPLE LUMEN PICC LINE RETRACTED 3 CM, PER CHEST XRAY RECCOMENDATION. Blood return obtained from each of THREE lumens and each flushed easily with NS using proper technique. 5F PICC secured with Stat-lock; biodisc and occlusive dressing applied. Okay to use PICC line. PRIMARY RN NOTIFIED.
[2020-04-02] MEDS ORDERED: DexAMETHasone SOD PHOS 10MG/1ML VIAL INJ IV ONE (18:30)
[2020-04-02] MEDS: MIDAZOLAM DRIP 50 mg/50mL 50 ML IV SCH ×2 (20:00→23:30)
--- NOTE | 2020-04-02 20:00 | NUR ---
ADMITTED ON 03/21/20 WITH FEVER, DYSPNEA AND COUGH. INTUBATED IN OUR ER AND BROUGHT TO ICU. RESPIRATORY FAILURE. DREA. RESPIRATORY ISOLATION. SEDATED WITH VERSED AND FENTANYL. VERY HYPOACTIVE GAG. ORAL CARE DONE. ORALLY INTUBATED. ORAL NGT WITH GLUCERNA AT 60 CC/HR. RESIDUAL 2CC. PUPILS 3 AND SLUGGISH. ABDOMEN ROUND, LARGE AND SOFT. KILLIAN IN PLACED DRAINING AN ADEQUATE AMOUNT OF FLUID. SUCTIONED A SMALL AMOUNT OF CLOUDY WHITE FROM THE ETT. ORAL CARE DONE. LIPS DRY AND FLAKY. MOISTURIZER TO LIPS. ALL PULSES PALPABLE. ALL EXTREMITIES ARE WARM. HEELS OFF BED. BP STABLE
[2020-04-02] MEDS: ENOXAPARIN SOD 80 MG/0.8ML SYRINGE SC SCH (22:00)
--- NOTE | 2020-04-02 22:00 | NUR ---
REPOSITIONED USING THE BED. VSS. LUNGS CLEAR. ORAL CARE DONE WITH BRUSH AND MOISTURIZER. TOLERATING TUBE FEEDING. NGT RESIDUAL 10CC. NO BM YET. NSR WITHOUT ECTOPY
[2020-04-03] VITALS (100 sets, daily range): BP systolic 93–155; BP diastolic 47–89
--- NOTE | 2020-04-03 | NUR ---
ATTEMPTED TO TURN THE PATIENT TO HIS LEFT SIDE, HE DID DESATURATE WITHIN 2 MINUTES. O2 SAT RETURNED TO 91 ONLY. LUNGS CLEAR. SUCTIONED X 2 FOR PINKTINGED SECRETIONS.
--- NOTE | 2020-04-03 02:00 | NUR ---
REPOSITIONED. ORAL CARE. PINK TINGED SECRETIONS FROM THE ETT. NGT 5 CC RESIDUAL. CHANGED 4 LINES AND BAGS TO THE NEW PICC LINE. THEN DC'D THE RIJ TRIPLE LUMEN CATHETER. VASELINE TOBY, 2X2, 4X4 : PRESSURE HELD FOR 10 MINUTES AND SECURED THE AREA WITH STRETCHY FOAM TAPE.
--- NOTE | 2020-04-03 03:00 | NUR ---
LAID FLAT TO REMOVE THE CENTRAL LINE. O2 SAT DIPPED TO 85%. SUCTIONED FOR JUST A SMALL AMOUNT OF BLOOD TINGED SECRETIONS. O2 SATS DID NOT IMPROVE. NOTIFIED RT. THEY INCREASED THE FIO2 TO 100%. WHEN HE COUGHED AT 0330, HIS SATS DROPPED AGAIN TO 85. FENTANYL AND VERSED INCREASED TO MAX. HIS O2 SATS ARE SLOWLY IMPROVING. AT 0345, O2 SATS ARE 90%.
--- NOTE | 2020-04-03 04:00 | NUR ---
AM LABS DRAWN.
--- NOTE | 2020-04-03 04:30 | NUR ---
TURNED PATIENT AND HE DESATURATED TO 75
--- NOTE | 2020-04-03 04:45 | NUR ---
INCREASED THE FIO2 TO 100%. SLOWLY THE SAT CAME UP TO 93% BY 0700
[2020-04-03 05:26] LABS: Basophils # (auto) 0.1 10 ^3/uL (0-0.2); Basophils % (auto) 0.3 % (0.0-2.0); Eosinophils # (auto) 0.4 10 ^3/uL (0-0.8); Eosinophils % (auto) 2.7 % (0.0-7.0); Hematocrit 31.8 % (41.0-53.0); Hemoglobin 10.3 g/dL (13.5-17.5); Lymphocytes # (auto) 1.3 10 ^3/uL (0.4-5.4); Lymphocytes % (auto) 8.5 % (10.0-50.0); Mean Corpuscular Hemoglobin 29.3 pg (28.0-32.0); Mean Corpuscular Hgb Conc. 32.5 g/dL (32.0-36.0); Mean Corpuscular Volume 90.1 fL (80.0-100.0); Monocytes # (auto) 0.8 10 ^3/uL (0-1.3); Monocytes % (auto) 5.5 % (0.0-12.0); Neutrophils # (auto) 12.4 10 ^3/uL (1.6-8.6); Nucleated Red Blood Cells % 0.3 %; Platelet Count (auto) 201 10^3/uL (140-450); Red Blood Cells 3.52 10^6/uL (4.5-5.90); Red Cell Distribution Width 14.1 % (11.8-14.3)
[2020-04-03 05:57] LABS: Potassium 3.5 mmol/L (3.5-5.1)
[2020-04-03] MEDS: FREE WATER GT SCH ×4 (06:00→17:32)
[2020-04-03] MEDS: ACCU-CHEK COMFORT CURVE STRIP VI SCH ×4 (06:00→17:44)
[2020-04-03] MEDS: InsuLIN REG 1unit/0.01ml Soln (100units/ml) SC SCH ×4 (06:00→17:44)
[2020-04-03] MEDS: PIPERACILLIN-TAZOB 3.375GM 100 ML IV SCH ×4 (06:00→17:32)
[2020-04-03 06:10] LABS: Albumin 2.3 g/dL (3.4-5.0); BUN/Creatinine Ratio 35.3; Bilirubin, Total 0.5 mg/dL (0.2-1.0); Calcium 8.1 mg/dL (8.5-10.1); Total Protein 5.9 g/dL (6.4-8.2)
--- NOTE | 2020-04-03 07:12 | NUR ---
REPORT RECEIVED FROM BOBTAILER RN
--- NOTE | 2020-04-03 07:15 | NUR ---
Respiratory note: RECEIVED PATIENT ON V12 V200 VENT ORALLY INTUBATED WITH AN 8.0 ETT SECURED VIA SHAKILA AT THE 23CM MARKING AT THE LIP, AND MECHANICALLY VENTILATED WITH THE CHARTED SETTINGS. SPO2 90%, LUNG SOUNDS DIM T/O, MODERATE AMOUNT OF THICK GRAMAJO SECRETIONS WHEN SUCTIONED. SKIN IS WARM/DRY TO THE TOUCH AND IS INTACT NEAR SHAKILA SITE. THERE IS AN OGT IN PLACE AND SECURED TO THE ETT, A PICC LINE IS PLACED IN THE RIGHT UPPER ARM. PITTING EDEMA NOTED IN BILATERAL UPPER EXTREMITIES, LOWER EXTREMITIES HAVE LEG SEQUENTIALS ON AND OPERATIONAL. NO NEW AM CXR TO ASSESS. PATIENT IS UNRESPONSIVE TO BOTH VERBAL/TACTILE STIMULI AND IS SEDATED ON VERSED AND FENTANYL DRIPS. HE IS RESTING COMFORTABLY AND TOLERATING VENT WELL, NO CHANGES MADE. VENT PLUGGED INTO RED OUTLET AND ALL ALARMS ARE SET AND AUDIBLE. WILL CONTINUE TO ASSESS PATIENT WELL VENTILATOR FUNCTION.
--- NOTE | 2020-04-03 07:34 | NUR ---
Respiratory note: AM CXR ASSESSED AND IT SHOWS ETT IN SATISFACTORY POSITION SITTING APPROX 4.6CM ABOVE THE OFELIA. NO INDICATION TO ADJUST TUBE.
--- NOTE | 2020-04-03 07:35 | NUR ---
PARTIAL LINEN CHANGE PERFORMED AT THIS TIME Addendum: 04/03/20 at 1108 by Rodger Coates RN WRONG PATIENT
--- NOTE | 2020-04-03 08:01 | NUR ---
ATTEMPTED TURN AT THIS TIME PATIENT DID NOT TOLERATED 02 SATURATION 86, PATIENT PLACED IN PREVIOUS POSITION, 02 SATURATION NOW 91%
[2020-04-03] MEDS ORDERED: DexAMETHasone SOD PHOS 4 MG/1ML SDV INJ IV SCH (10:00)
[2020-04-03] MEDS: ASCORBIC ACID 1,000 MG TAB PO SCH (10:02)
[2020-04-03] MEDS: PANTOPRAZOLE 40 MG/10 ML VIAL INJ IV SCH ×2 (10:02→22:00)
[2020-04-03] MEDS: ZINC SULFATE 220mg CAP or TAB PO SCH (10:02)
[2020-04-03] MEDS: SODIUM CHLOR 0.9% PF (SALINE LOCK) 10ML VIAL/SYR IV SCH ×2 (10:02→22:00)
[2020-04-03] MEDS: CHOLECALCIFEROL (VITD3) 1,000UNIT=25mCg TAB PO SCH (10:02)
[2020-04-03] MEDS: ENOXAPARIN SOD 80 MG/0.8ML SYRINGE SC SCH ×2 (10:03→22:00)
[2020-04-03] MEDS: BUDESONIDE (INHALATION) 0.5 MG/2 ML NEB NEB SCH (10:17)
[2020-04-03] MEDS: fentaNYL Drip 2500mCg/250mlNS 250 ML IV SCH ×3 (10:51→20:00)
[2020-04-03] MEDS: MIDAZOLAM DRIP 50 mg/50mL 50 ML IV SCH ×4 (10:52→23:18)
--- NOTE | 2020-04-03 11:02 | NUR ---
DR. PATTON AT BEDSIDE Addendum: 04/03/20 at 1107 by Rodger Coates RN WRONG PATIENT
--- NOTE | 2020-04-03 12:50 | NUR ---
DR. SHORT AT BEDSIDE
[2020-04-03] MEDS ORDERED: FUROSEMIDE 20 MG/2 ML VIAL IV ONE (13:15)
--- NOTE | 2020-04-03 14:01 | NUR ---
Respiratory note: PIP DECREASED TO 22 AND PEEP INCREASED TO [address] SHORT'S ORDER. MARLENI BARTH MADE AWARE OF CHANGES.
[2020-04-03] MEDS: PROPOFOL 100 ML IV SCH (14:38)
[2020-04-03] MEDS: DOPamine 1600MCG/ML D5W 250 ML IV SCH ×2 (15:30→20:00)
[2020-04-03] MEDS: NOREPINEPHRINE 8 MG/250ML KIT 250 ML IV SCH ×2 (15:49→20:00)
--- NOTE | 2020-04-03 19:30 | NUR ---
ADMITTED ON 03/21/20 WITH FEVER, DYSPNEA AND COUGH. INTUBATED IN OUR ER AND BROUGHT TO ICU. RESPIRATORY FAILURE. DREA. RESPIRATORY ISOLATION. SEDATED WITH VERSED AND FENTANYL. VERY HYPOACTIVE GAG. ORAL CARE DONE. ORALLY INTUBATED. ABDOMEN ROUND,LARGE AND SOFT. NO BM YET. NEW TUBE FEEDING ORDER FOR GLUCERNA GOAL RATE OF 80CC/HR. STARTED. OGT.KILLIAN IN PLACE DRAINING YELLOW LIQUID WITH HEAVY SEDIMENT. SMALL AMOUNT OF PITTING EDEMA IN LEGS. RIGHT HAND IS PUFFY. SCDS ON. ALL EXTREMITIES ARE WARM. ALL PULSES ARE PALPABLE. UNABLE TO BE TURNED. SENSITIVE TO ANY MOVEMENT. DROPS O2 SATURATION. ON 100% FIO2 WITH AN INCREASE OF PEEP TO 18 TODAY.
[2020-04-03] MEDS: Glucerna 1.2 Cal 1Liter BOTTLE GT SCH (20:00)
--- NOTE | 2020-04-03 22:00 | NUR ---
UNABLE TO TURN. BROUGHT BED DOWN A LITTLE. CHANGED KNEE GAP. TOLERATING TUBE FEEDING. KILLIAN: YELLOW LIQUID WITH SEDIMENT. ORAL CARE DONE. SUCTIONED THE ETT. NO SECRETIONS. IV SHOWS NO REDNESS OR SWELLING.
[2020-04-04] VITALS (99 sets, daily range): BP systolic 97–136; BP diastolic 52–85
--- NOTE | 2020-04-04 | NUR ---
UNABLE TO MOVE. NO FEVER. WAKES UP EASILY AND CAN MOVE ALL EXTREMITIES. +GAG AND COUGH. NSR WITHOUT ECTOPY.
--- NOTE | 2020-04-04 03:50 | NUR ---
NECK DRESSING DONE
--- NOTE | 2020-04-04 04:30 | NUR ---
PLACED BACK ON 100%FIO2. O2 SAT HAS BEEN RUNNING 89% CONSISTENTLY
--- NOTE | 2020-04-04 05:00 | NUR ---
[facility] BATH
[2020-04-04 05:16] LABS: Hematocrit 32.1 % (41.0-53.0); Hemoglobin 10.4 g/dL (13.5-17.5); Mean Corpuscular Hemoglobin 29.2 pg (28.0-32.0); Mean Corpuscular Hgb Conc. 32.5 g/dL (32.0-36.0); Mean Corpuscular Volume 89.7 fL (80.0-100.0); Platelet Count (auto) 235 10^3/uL (140-450); Red Blood Cells 3.58 10^6/uL (4.5-5.90); Red Cell Distribution Width 14.2 % (11.8-14.3); White Blood Cell 15.5 10^3/uL (4.4-10.8)
[2020-04-04 05:32] LABS: Band Neutrophils % (manual) 0; Basophils % (manual) 0 (0.0-2.0); Blast Cells 0; Eosinophils % (manual) 0 (0-7); Metamyelocytes % 0; Myelocytes % 0; Promyelocytes % 0; Reactive Lymphocytes 0
[2020-04-04 05:36] LABS: Albumin 2.4 g/dL (3.4-5.0); Potassium 3.6 mmol/L (3.5-5.1)
[2020-04-04 05:40] LABS: BUN/Creatinine Ratio 30.8; Bilirubin, Total 0.5 mg/dL (0.2-1.0); Total Protein 6.3 g/dL (6.4-8.2)
[2020-04-04] MEDS: PIPERACILLIN-TAZOB 3.375GM 100 ML IV SCH ×4 (05:41→17:54)
[2020-04-04] MEDS: ACCU-CHEK COMFORT CURVE STRIP VI SCH ×4 (05:41→17:37)
[2020-04-04] MEDS: FREE WATER GT SCH ×2 (05:41)
[2020-04-04] MEDS: InsuLIN REG 1unit/0.01ml Soln (100units/ml) SC SCH ×4 (06:00→17:46)
[2020-04-04] MEDS: DOPamine 1600MCG/ML D5W 250 ML IV SCH (06:00)
--- NOTE | 2020-04-04 06:00 | NUR ---
FREE WATER 200CC
[2020-04-04] MEDS: BUDESONIDE (INHALATION) 0.5 MG/2 ML NEB NEB SCH ×3 (06:18→22:36)
[2020-04-04 07:01] LABS: Lymphocytes % (manual) 23 (10.0-50.0); Monocytes % (manual) 4 (0-12)
--- NOTE | 2020-04-04 07:09 | NUR ---
REPORT RECEIVED FROM DEVELOPMENT TEAM LEAD RN
--- NOTE | 2020-04-04 08:00 | NUR ---
UNABLE TO TURN PATIENT AT THIS TIME DUE TO HEMODYNAMIC INSTABILITY
[2020-04-04] MEDS: POTASSIUM CHL 20MEQ/100ML 100 ML IV PRN (08:10)
--- NOTE | 2020-04-04 09:00 | NUR ---
SEDATION VACATION HELD AT THIS TIME. PATIENT BECOMES AGITATED ON PRESSURE CONTROL, 0XYGEN LEVEL DROPS INTO 80'S WHEN AGITATED.
[2020-04-04] MEDS: fentaNYL Drip 2500mCg/250mlNS 250 ML IV SCH (09:41)
[2020-04-04] MEDS: ZINC SULFATE 220mg CAP or TAB PO SCH (09:42)
[2020-04-04] MEDS: ASCORBIC ACID 1,000 MG TAB PO SCH (09:42)
[2020-04-04] MEDS: CHOLECALCIFEROL (VITD3) 1,000UNIT=25mCg TAB PO SCH (09:42)
[2020-04-04] MEDS: PANTOPRAZOLE 40 MG/10 ML VIAL INJ IV SCH ×2 (09:42→23:50)
[2020-04-04] MEDS: SODIUM CHLOR 0.9% PF (SALINE LOCK) 10ML VIAL/SYR IV SCH ×2 (09:42→22:00)
[2020-04-04] MEDS: ENOXAPARIN SOD 80 MG/0.8ML SYRINGE SC SCH ×2 (09:43→23:50)
[2020-04-04] MEDS: DexAMETHasone SOD PHOS 10MG/1ML VIAL INJ IV SCH (10:03)
--- NOTE | 2020-04-04 11:27 | NUR ---
DR. DANIELS AT BEDSIDE
[2020-04-04] MEDS: PROPOFOL 100 ML IV SCH ×2 (11:41→16:44)
--- NOTE | 2020-04-04 11:41 | NUR ---
OXYGEN DESATURATION PATIENT COUGHING AND MOVING ARMS TOWARDS ET TUBE AT THIS TIME WITH 02 SATURATION DROPPING INTO LOW 80'S PROPOFOL STARTED FOR SEDATION
[2020-04-04] MEDS ORDERED: FUROSEMIDE 40 MG/4 ML VIAL IV ONE (11:45)
[2020-04-04] MEDS: MIDAZOLAM DRIP 50 mg/50mL 50 ML IV SCH ×2 (11:49→16:44)
--- NOTE | 2020-04-04 13:27 | NUR ---
FAMILY DAUGHTER UPDATED ON PATIENT STATUS AND PATIENTS CRITICAL STATE. ALL QUESTIONS AND CONCERNS ADDRESSED AT THIS TIME
--- NOTE | 2020-04-04 14:18 | NUR ---
ORAL CARE PERFORMED PATIENT TOLERATED WELL
--- NOTE | 2020-04-04 14:22 | NUR ---
Nutrition Followup Note Wt: 99.0 kg Pt`s covid +. Pt is sedated, intubated, NPO with with EN support Glucerna 1.2 @ 60ml/hr per RN note. Consider Glucerna 1.2 goal rate of 70ml/hr as tolerated and per MD approval. Will f/u in 2-3 days. Est Energy needs: 9005-9314 kcals (20-23 kcal/kgBW) d/t Stg 3 CKD. Est Protein needs: 86-97 gms/day (0.8-0.9 gm/kgBW) d/t Stg 3 CKD, Will continue to monitor and reassess prn. Labs: BUN 41H, Creat 1.33H, Alb 2.4L, Ca 8.0L, [id number] BM: Pt had no BM today per RN note Skin: BS 14 mod risk, full wound care details in RN doc PES: 1) Increased nutrient needs aeb pt is sedated, intubated, NPO r/t pt with no PO intake 2) Obesity aeb 166% IBW and BMI of 38.2 kg/m2 r/t pt Hx of energy intake in excess of energy needs 3) Altered nutrition related lab values elev RFTs, low GFR, hyperglycemia, hypocalcemia, mod hypoalbuminemia r/t current/chronic medical condition Comments Will continue to closely monitor pertinent labs, NPO status and skin status prn. Will followup in 2-3 days 1) Continue to closely monitor pt NPO status. 2) If pt remains NPO for the next 48 hours, consider EN nutrition support Glucerna 1.2 @ 70 ml/hr goal rate without propofol. 3) Gradually advance pt to oral Renal Specific 90gProtein,2gNa,K2,low phos diet diet when medically feasible and as tolerated .4) Continue current plan of care
--- NOTE | 2020-04-04 15:51 | NUR ---
LAB AT BEDSIDE FOR BLOOD CULTURE
--- NOTE | 2020-04-04 17:24 | NUR ---
ACCU CHECK 141 INSULIN GIVEN PER SLIDING SCALE
--- NOTE | 2020-04-04 18:35 | NUR ---
Respiratory note: RECEIVED PT ON VENT V12, AT BEDSIDE IN FULL PPE FOR COVID-19 PRECAUTIONS. VENT CONNECTED TO RED OUTLET AND O2 SOURCE. ALARMS ARE SET AND AUDIBLE. AMBU BAG AND MASK AT BEDSIDE. BS ARE COURSE. SXD VIA ETT FOR SCANT BLOODY/GRAMAJO, PT MOVED ARMS WHEN IS BEING SXD. PTS CURRENT TEMP READS 99.0F. WILL CONTINUE TO MONITOR.
--- NOTE | 2020-04-04 20:00 | NUR ---
OPEN ASSUMED CARE OF MALE PT ORALLY INTUBATED. PT SEDATED ON VERSED DRIP 15 MG/HR, FENTANYL GTT 175 MCG/HR, AND PROPOFOL GTT 15 MCG/KG/MIN. PT WITHDRAWS DURING ORAL CARE OTHERWISE NON RESPONSIVE. SR ON INCIDENT RESPONSE LEAD WITH LEVOPHED GTT INFUSING AT 4 MCG/MIN, AND DOPAMINE GTT INFUSING AT 2 MCG/KG/MIN. GTT'S INFUSING INTO R UPPER ARM PICC LINE WITH ALL PORTS PATENT AND CDI DRESSING. OGT IN PLACE WITH GLUCERNA INFUSING AT 40 ML/HR. PLACEMENT VERIFIED. KILLIAN TO GRAVITY DRAINING YELLOW URINE WITH SEDIMENT. LANRE SCD'S IN PLACE. LANRE UPPER AND LOWER EXTREMITIES OFFLOADED WITH PILLOWS. BED IN LOWEST LOCKED POSITION. SIDE RAILS UP X 2. HOB ELEVATED 40 DEGREES. NO INDICATION OF PAIN OBSERVED. PT ON AIRBORNE ISOLATION FOR POSITIVE COVID RESULT. PROPER PPE IN USE. PT IN FULL VIEW OF RN STATION WILL CONTINUE TO MONITOR.
--- NOTE | 2020-04-04 22:00 | NUR ---
FAMILY CALL PT DAUGHTER GENTRY CALLED FOR UPDATE ON PT CONDITION. AFTER PASSWORD FOR PHONE GIVEN UPDATE PROVIDED. UPDATED PT'S DAUGHTER REGARDING FULL SUPPORT ON VENTILATOR AND LESS THAN OPTIMAL OXYGENATION. PLAN OF CARE DISCUSSED. ALL QUESTIONS AND CONCERNS ADDRESSED.
--- NOTE | 2020-04-04 22:00 | NUR ---
UNSTABLE FOR TURN PT WITH O2 SATS 90% ON VENT PC 100% FIO2. PT MAINTAINING OXYGEN SATURATIONS 88% TO 91%. PT DESATURATES WITH POSITION CHANGES. LOWER EXTREMITIES OFFLOADED WITH PILLOWS. LINEN CLEAN. WILL RESUME TURN SCHEDULE WHEN PT CONDITION PERMITS.
--- NOTE | 2020-04-04 22:25 | NUR ---
Respiratory note: AT BEDSIDE IN FULL PPE FOR COVID PRECAUTIONS. SXD FOR SMALL GRAMAJO/BROWNISH SECRETIONS. MED NEB TX GIVEN VIA AEROGEN, NO ADVERSE REACTION NOTED. PTS CURRENT TEMP READS 98.8F. WILL CONTINUE TO MONITOR.
[2020-04-05] VITALS (101 sets, daily range): BP systolic 88–162; BP diastolic 51–89
--- NOTE | 2020-04-05 | NUR ---
GI/TUBE FEED RESIDUAL PT RECEIVING GLUCERNA 40 ML/HR. VIA OGT. RESIDUAL CHECK PERFORMED. 120 ML TUBE FEED RESIDUAL ASPIRATED/RETURNED. FEEDING STOPPED FOR NOW. WILL RE-EVALUATE.
[2020-04-05] MEDS: MIDAZOLAM DRIP 50 mg/50mL 50 ML IV SCH ×5 (01:22→18:44)
--- NOTE | 2020-04-05 02:13 | NUR ---
Respiratory note: VENT CHECK DONE BY PTS ROOM DOOR DUE TO COVID PRECAUTIONS. PTS CURRENT BODY TEMP READS 98.2F. NO VENT CHANGES MADE WILL CONTINUE TO MONITOR.
[2020-04-05] MEDS: ACCU-CHEK COMFORT CURVE STRIP VI SCH ×4 (06:00→17:31)
[2020-04-05] MEDS: PIPERACILLIN-TAZOB 3.375GM 100 ML IV SCH ×4 (06:00→17:42)
[2020-04-05] MEDS: InsuLIN REG 1unit/0.01ml Soln (100units/ml) SC SCH ×4 (06:00→17:31)
[2020-04-05] MEDS: DOPamine 1600MCG/ML D5W 250 ML IV SCH ×2 (06:00→07:57)
[2020-04-05] MEDS: BUDESONIDE (INHALATION) 0.5 MG/2 ML NEB NEB SCH ×2 (06:15→22:19)
[2020-04-05 06:50] LABS: Albumin 2.5 g/dL (3.4-5.0); Calcium 8.3 mg/dL (8.5-10.1); Potassium 3.7 mmol/L (3.5-5.1)
[2020-04-05 06:53] LABS: BUN/Creatinine Ratio 26.3; Bilirubin, Total 0.5 mg/dL (0.2-1.0); Total Protein 6.1 g/dL (6.4-8.2)
[2020-04-05] MEDS: PROPOFOL 100 ML IV SCH ×5 (07:31→23:30)
--- NOTE | 2020-04-05 08:00 | NUR ---
UNABLE TO TURN PATIENT AT THIS TIME HEMODYNAMICALLY UNSTABLE
--- NOTE | 2020-04-05 09:00 | NUR ---
SEDATION VACATION HELD AT THIS TIME 0XYGEN LEVEL DROPS TO MID 80'S WHEN AWAKE Addendum: 04/05/20 at 0906 by Rodger Coates RN Amended: Links added.
[2020-04-05] MEDS: SODIUM CHLOR 0.9% PF (SALINE LOCK) 10ML VIAL/SYR IV SCH ×2 (10:13→21:44)
[2020-04-05] MEDS: DexAMETHasone SOD PHOS 10MG/1ML VIAL INJ IV SCH (10:13)
[2020-04-05] MEDS: ASCORBIC ACID 1,000 MG TAB PO SCH (10:13)
[2020-04-05] MEDS: ZINC SULFATE 220mg CAP or TAB PO SCH (10:13)
[2020-04-05] MEDS: PANTOPRAZOLE 40 MG/10 ML VIAL INJ IV SCH ×2 (10:13→21:44)
[2020-04-05] MEDS: CHOLECALCIFEROL (VITD3) 1,000UNIT=25mCg TAB PO SCH (10:14)
[2020-04-05] MEDS: ENOXAPARIN SOD 80 MG/0.8ML SYRINGE SC SCH ×2 (10:14→23:00)
--- NOTE | 2020-04-05 10:16 | NUR ---
KILLIAN CATHETER CLOGGED WITH SEDIMENT UNABLE TO FLUSH STERILE WATER, KILLIAN REMOVED AND REPLACED USING STERILE TECHNIQUE. PATIENT TOLERATED WELL
--- NOTE | 2020-04-05 10:20 | NUR ---
DAUGHTER UPDATED ON PATIENT STATUS AWARE HOW UNSTABLE AND CRITICAL HER FATHER IS AT THIS TIME. ALL QUESTIONS ADDRESSED AT THIS TIME AND PLAN OF CARE DISCUSSED
[2020-04-05] MEDS: fentaNYL Drip 2500mCg/250mlNS 250 ML IV SCH (11:42)
--- NOTE | 2020-04-05 12:39 | NUR ---
DR. SHORT AT BEDSIDE
[2020-04-05] MEDS ORDERED: FUROSEMIDE 20 MG/2 ML VIAL IV ONE (13:00)
--- NOTE | 2020-04-05 14:58 | NUR ---
DR. GALARZA AT BEDSIDE
[2020-04-05] MEDS ORDERED: FUROSEMIDE 20 MG/2 ML VIAL IV SCH (15:00)
[2020-04-05] MEDS: NOREPINEPHRINE 8 MG/250ML KIT 250 ML IV SCH (15:49)
--- NOTE | 2020-04-05 20:00 | NUR ---
OPEN ASSUMED CARE OF MALE PT ORALLY INTUBATED. PT SEDATED ON VERSED DRIP 15 MG/HR, FENTANYL GTT 200 MCG/HR, AND PROPOFOL GTT 40 MCG/KG/MIN. PT WITHDRAWS DURING ORAL CARE OTHERWISE NON RESPONSIVE. SR ON RETAIL RECEIVING CLERK WITH LEVOPHED GTT INFUSING AT 4 MCG/MIN, AND DOPAMINE GTT INFUSING AT 2 MCG/KG/MIN. GTT'S INFUSING INTO R UPPER ARM PICC LINE WITH ALL PORTS PATENT AND CDI DRESSING. OGT IN PLACE WITH GLUCERNA INFUSING AT 30 ML/HR. PLACEMENT VERIFIED. KILLIAN TO GRAVITY DRAINING YELLOW URINE WITH SEDIMENT. LANRE SCD'S IN PLACE. LANRE UPPER AND LOWER EXTREMITIES OFFLOADED WITH PILLOWS. BED IN LOWEST LOCKED POSITION. SIDE RAILS UP X 2. NO INDICATION OF PAIN OBSERVED. PT ON P.C. ON VENT 100% FIO2. PT DESATS WITH MINIMAL MOVEMENT TO LOW 80'S. UNABLE TO BE REPOSITIONED. PT ON AIRBORNE ISOLATION FOR COVID 19. PPE IN USE. PT IN FULL VIEW OF RN STATION. WILL CONTINUE TO MONITOR.
--- NOTE | 2020-04-05 20:47 | NUR ---
FAMILY CALL PT'S DAUGHTER GENTRY CALLED UNIT FOR UPDATE ON PT CONDITION. AFTER PASSWORD FOR PHONE GIVEN. UPDATE PROVIDED. ALL QUESTIONS AND CONCERNS ADDRESSED.
[2020-04-05] MEDS: LINEZOLID 600MG/300ML 300 ML IV SCH (21:44)
[2020-04-06] VITALS (99 sets, daily range): BP systolic 85–131; BP diastolic 44–85
[2020-04-06] MEDS: PIPERACILLIN-TAZOB 3.375GM 100 ML IV SCH ×4 (01:00→18:00)
[2020-04-06] MEDS: PROPOFOL 100 ML IV SCH ×6 (02:30→22:30)
[2020-04-06] MEDS: MIDAZOLAM DRIP 50 mg/50mL 50 ML IV SCH ×3 (03:00→12:04)
[2020-04-06] MEDS: InsuLIN REG 1unit/0.01ml Soln (100units/ml) SC SCH ×4 (06:00→18:00)
[2020-04-06] MEDS: ACCU-CHEK COMFORT CURVE STRIP VI SCH ×4 (06:00→18:00)
[2020-04-06 06:23] LABS: Hematocrit 31.6 % (41.0-53.0); Hemoglobin 10.3 g/dL (13.5-17.5); Mean Corpuscular Hemoglobin 29.6 pg (28.0-32.0); Mean Corpuscular Hgb Conc. 32.7 g/dL (32.0-36.0); Mean Corpuscular Volume 90.6 fL (80.0-100.0); Platelet Count (auto) 259 10^3/uL (140-450); Red Blood Cells 3.49 10^6/uL (4.5-5.90); Red Cell Distribution Width 14.6 % (11.8-14.3); White Blood Cell 14.1 10^3/uL (4.4-10.8)
[2020-04-06 06:40] LABS: Basophils % (manual) 0 (0.0-2.0); Blast Cells 0; Myelocytes % 0; Promyelocytes % 0; Reactive Lymphocytes 0
[2020-04-06 06:42] LABS: Potassium 3.4 mmol/L (3.5-5.1)
[2020-04-06 06:51] LABS: BUN/Creatinine Ratio 25.7
--- NOTE | 2020-04-06 07:30 | NUR ---
Assumed care of patient after report from tiana YEPEZ Patient airborne/droplet precautions, COVID + Vent settings FIO2 100%, Rate 18 PC, PC 22, SPO2 88%. Patient cannot tolerate turning and is labile with stimulation. In [place] with BBB on Dopamine 1 mcg, Norepinephrine 2 mcg. Sedation Fentanyl 200 mcg, Versed 15 mcg, Propofol 50 mcg. Hypoactive bowel sounds, OG tube with Glucerna @ 30 ml/hr. Accucheck Q6hrs last BSC 114 no coverage. Farrell to gravity output 1600 ml p.m shift. Skin WNL. R upper PICC line patent. Will continue to monitor. Addendum: 04/06/20 at 0758 by Rikki Loza RN WRONG patient
[2020-04-06] MEDS: BUDESONIDE (INHALATION) 0.5 MG/2 ML NEB NEB SCH ×2 (07:32→23:28)
[2020-04-06 07:51] LABS: Band Neutrophils % (manual) 1; Eosinophils % (manual) 1 (0-7); Lymphocytes % (manual) 19 (10.0-50.0); Metamyelocytes % 1; Monocytes % (manual) 4 (0-12)
[2020-04-06] MEDS: DOPamine 1600MCG/ML D5W 250 ML IV SCH (08:47)
[2020-04-06] MEDS: NOREPINEPHRINE 8 MG/250ML KIT 250 ML IV SCH (08:49)
--- NOTE | 2020-04-06 09:00 | NUR ---
Oral care completed. Patient tolerated lying flat and pillows applied at the hip.
[2020-04-06] MEDS: LINEZOLID 600MG/300ML 300 ML IV SCH ×2 (10:00→22:00)
[2020-04-06] MEDS: SODIUM CHLOR 0.9% PF (SALINE LOCK) 10ML VIAL/SYR IV SCH ×2 (10:00→22:00)
--- NOTE | 2020-04-06 11:20 | NUR ---
RN bedside. Patient tolerated bringing HOB up with knees up. Oral care, catheter care, partial linen change completed.
[2020-04-06] MEDS: DexAMETHasone SOD PHOS 10MG/1ML VIAL INJ IV SCH (11:48)
[2020-04-06] MEDS: PANTOPRAZOLE 40 MG/10 ML VIAL INJ IV SCH ×2 (11:50→22:00)
[2020-04-06] MEDS: ASCORBIC ACID 1,000 MG TAB PO SCH (11:50)
[2020-04-06] MEDS: ZINC SULFATE 220mg CAP or TAB PO SCH (11:50)
[2020-04-06] MEDS: ENOXAPARIN SOD 80 MG/0.8ML SYRINGE SC SCH ×2 (11:51→22:00)
[2020-04-06] MEDS ORDERED: POTASSIUM EFFERVESENT TAB 25 MEQ GT ONE (12:00)
--- NOTE | 2020-04-06 12:30 | NUR ---
WOUND CARE NOTE: PATIENT BEING MONITORED FOR SKIN INTEGRITY D/T PATIENT'S INTUBATION STATUS. PATIENT CONTINUES TO BE INTUBATED, NON RESPONSIVE. CURRENT ROSANGELA SCORE IS 13. PATIENT CONTINUES TO NO SKIN INTEGRITY ISSUES AT THIS TIME. SKIN/WOUND CARE PLAN UPDATED. RECOMMEND: CONTINUATION WITH ALL WOUND CARE ORDERS PREVIOUSLY PRESCRIBED BY MD. WOUND CARE TEAM WILL CONTINUE TO MONITOR.
--- NOTE | 2020-04-06 13:15 | NUR ---
RN bedside, patient tolerated repositioning by lying flat again for several minutes to straighten legs and perform passive range of motion.
--- NOTE | 2020-04-06 14:15 | NUR ---
Nutrition Followup Note Wt: 99.3 kg Pt`s covid +. Pt is sedated, intubated, propofol running at 31.298 ml/hr which provides 826 kcal from lipids. Pt with TF of Glucerna 1.2 ordered at a goal rate of 80 ml/hr. Per RN notes pt received 40 ml TF with high residuals. TF is stopped at this time, consider restarting TF when medically feasible or consider alternate nutrition if GI not accessible. Est Energy needs: 4608-6344 kcals (20-23 kcal/kgBW) d/t Stg 3 CKD. Est Protein needs: 86-97 gms/day (0.8-0.9 gm/kgBW) d/t Stg 3 CKD, Will continue to monitor and reassess prn. Labs: BUN 35H, Creat 1.36H, Ca 8.0L, Alb 2.5L BM: Pt had no BM today per RN note Skin: BS 13 mod risk, full wound care details in RN doc PES: 1) Increased nutrient needs aeb pt is sedated, intubated, NPO r/t pt with no PO intake 2) Obesity aeb 166% IBW and BMI of 38.2 kg/m2 r/t pt Hx of energy intake in excess of energy needs 3) Altered nutrition related lab values elev RFTs, low GFR, hyperglycemia, hypocalcemia, mod hypoalbuminemia r/t current/chronic medical condition Comments Will continue to closely monitor pertinent labs, NPO status and skin status prn. Will followup in 2-3 days 1) Continue to closely monitor pt NPO status. 2) If pt remains NPO for the next 48 hours, consider EN nutrition support Glucerna 1.2 @ 70 ml/hr goal rate without propofol. 3) Gradually advance pt to oral Renal Specific 90gProtein,2gNa,K2,low phos diet diet when medically feasible and as tolerated .4) Continue current plan of care
--- NOTE | 2020-04-06 17:15 | NUR ---
RN bedside for BSC and oral care. Patient calm and tolerating repositioning.
--- NOTE | 2020-04-06 18:43 | NUR ---
Shift summary Patient remains on same vent settings as beginning of shift. Patient tolerated repositioning today. In [place] on Dopamine 1.999 mcg and Levo 4 mcg. BP 110/67 end of shift. Farrell catheter clear yellow/green urine 2400 ml output. Skin WNL as seen d/t unable to completely turn patient. Will endorse care to tiana YEPEZ.
--- NOTE | 2020-04-06 20:00 | NUR ---
OPEN ASSUMED CARE OF MALE PT ORALLY INTUBATED. PT ON PRESSURE CONTROL 100% FIO2 AND PEEP OF 18. PT CONSISTENTLY SATURATES BELOW 90%. PT SEDATED ON VERSED DRIP 15 MG/HR, FENTANYL GTT 200 MCG/HR, AND PROPOFOL GTT 50 MCG/KG/MIN. PT WITHDRAWS DURING ORAL CARE OTHERWISE NON RESPONSIVE. SR ON MANAGER SOCIAL SERVICES WITH BBB. LEVOPHED GTT INFUSING AT 4 MCG/MIN, AND DOPAMINE GTT INFUSING AT 2 MCG/KG/MIN. GTT'S INFUSING INTO R UPPER ARM PICC LINE WITH ALL PORTS PATENT AND CDI DRESSING. OGT IN PLACE WITH GLUCERNA INFUSING AT 30 ML/HR. PLACEMENT VERIFIED. KILLIAN TO GRAVITY DRAINING YELLOW URINE WITH SEDIMENT. LANRE SCD'S IN PLACE. LANRE UPPER AND LOWER EXTREMITIES OFFLOADED WITH PILLOWS. BED IN LOWEST LOCKED POSITION. SIDE RAILS UP X 2. HOB ELEVATED 35 DEGREES. NO INDICATION OF PAIN OBSERVED. PT IN FULL VIEW OF RN STATION.
[2020-04-06] MEDS: fentaNYL Drip 2500mCg/250mlNS 250 ML IV SCH ×2 (21:00)
[2020-04-06] MEDS: FUROSEMIDE 20 MG/2 ML VIAL IV SCH (22:00)
--- NOTE | 2020-04-06 22:45 | NUR ---
RESPIRATORY PT WITH O2 SATS 83%. RT NOTIFIED.
--- NOTE | 2020-04-06 23:00 | NUR ---
UNSTABLE FOR TURNING PT O2 SATS DROPPED TO 79 % WITH MINIMAL REPOSITIONING. PT PLACED BACK INTO SUPINE POSITION. WILL RESUME TURN SCHEDULE PT CONDITION PERMITS. PT CURRENTLY ON PRESSURE CONTROL 100% FI02 ON VENT. HOB ELEVATED TO FACILITATE OXYGENATION.
[2020-04-07] VITALS (84 sets, daily range): BP systolic 85–126; BP diastolic 50–81
[2020-04-07] MEDS: MIDAZOLAM DRIP 50 mg/50mL 50 ML IV SCH ×5 (01:19→16:54)
[2020-04-07] MEDS: PROPOFOL 100 ML IV SCH ×4 (04:00→16:52)
[2020-04-07] MEDS: PIPERACILLIN-TAZOB 3.375GM 100 ML IV SCH ×4 (05:21→18:08)
--- NOTE | 2020-04-07 05:50 | NUR ---
CARES PT CLEANSED ON FRONT OF BODY. ORAL CARE PROVIDED. ALL CANISTERS AND SUCTION TUBING CHANGED.
[2020-04-07] MEDS: InsuLIN REG 1unit/0.01ml Soln (100units/ml) SC SCH ×4 (06:00→18:05)
[2020-04-07] MEDS: ACCU-CHEK COMFORT CURVE STRIP VI SCH ×4 (06:13→18:04)
[2020-04-07 06:14] LABS: Basophils # (auto) 0.2 10 ^3/uL (0-0.2); Basophils % (auto) 1.1 % (0.0-2.0); Eosinophils # (auto) 0.6 10 ^3/uL (0-0.8); Eosinophils % (auto) 4.5 % (0.0-7.0); Hematocrit 33.6 % (41.0-53.0); Lymphocytes % (auto) 14.4 % (10.0-50.0); Mean Corpuscular Hemoglobin 29.4 pg (28.0-32.0); Mean Corpuscular Hgb Conc. 32.7 g/dL (32.0-36.0); Mean Corpuscular Volume 89.9 fL (80.0-100.0); Monocytes # (auto) 0.6 10 ^3/uL (0-1.3); Monocytes % (auto) 4.1 % (0.0-12.0); Neutrophils # (auto) 10.5 10 ^3/uL (1.6-8.6); Neutrophils % (auto) 75.9 % (37.0-80.0); Nucleated Red Blood Cells % 0.2 %; Platelet Count (auto) 263 10^3/uL (140-450); Red Blood Cells 3.74 10^6/uL (4.5-5.90); Red Cell Distribution Width 14.3 % (11.8-14.3); White Blood Cell 13.9 10^3/uL (4.4-10.8)
[2020-04-07 06:28] LABS: Calcium 7.9 mg/dL (8.5-10.1); Potassium 3.1 mmol/L (3.5-5.1)
[2020-04-07 06:30] LABS: BUN/Creatinine Ratio 23.4
[2020-04-07] MEDS: DOPamine 1600MCG/ML D5W 250 ML IV SCH ×2 (07:56→13:53)
[2020-04-07] MEDS: fentaNYL Drip 2500mCg/250mlNS 250 ML IV SCH ×2 (07:58→16:52)
--- NOTE | 2020-04-07 08:00 | NUR ---
OPENING Report received from Beverly HACKETT RN.
[2020-04-07] MEDS: FUROSEMIDE 20 MG/2 ML VIAL IV SCH (10:33)
[2020-04-07] MEDS: PANTOPRAZOLE 40 MG/10 ML VIAL INJ IV SCH ×2 (10:33→22:00)
[2020-04-07] MEDS: DexAMETHasone SOD PHOS 10MG/1ML VIAL INJ IV SCH (10:33)
[2020-04-07] MEDS: SODIUM CHLOR 0.9% PF (SALINE LOCK) 10ML VIAL/SYR IV SCH ×2 (10:34→22:00)
[2020-04-07] MEDS: LINEZOLID 600MG/300ML 300 ML IV SCH ×2 (10:34→22:00)
[2020-04-07] MEDS: ASCORBIC ACID 1,000 MG TAB PO SCH (10:34)
[2020-04-07] MEDS: ZINC SULFATE 220mg CAP or TAB PO SCH (10:34)
[2020-04-07] MEDS: ENOXAPARIN SOD 80 MG/0.8ML SYRINGE SC SCH ×2 (10:34→22:00)
--- NOTE | 2020-04-07 11:06 | NUR ---
BEDSIDE Dr. Junaid candelaria.
[2020-04-07] MEDS ORDERED: ATRACURIUM BESYLATE 1,000 MG in D5W 5% 150 ML IV SCH (11:48)
[2020-04-07] MEDS: POTASSIUM CHL 20MEQ/100ML 100 ML IV PRN (11:53)
[2020-04-07] MEDS ORDERED: ROCURONIUM 10MG/ML 10ML VIAL IV ONE ×2 (12:04→12:15)
[2020-04-07] MEDS ORDERED: BUMETANIDE INJECTION 12.5 MG in GIVE UN-DILUTED 0 ML IV SCH (12:15)
--- NOTE | 2020-04-07 12:15 | NUR ---
BEDSIDE Dr. Ordonez bedside.
[2020-04-07] MEDS: ATRACURIUM BESYLATE 1,000 MG in D5W 5% 150 ML IV SCH (12:40)
--- NOTE | 2020-04-07 12:45 | NUR ---
PAGED FAMILY Paged family to make it to the hospital as soon as possible d/t patients condition.
[2020-04-07] MEDS ORDERED: BUMETANIDE INJECTION 10 ML ONE (13:00)
--- NOTE | 2020-04-07 13:00 | NUR ---
FAMILY BEDSIDE Family at the bedside to see patient.
--- NOTE | 2020-04-07 13:05 | NUR ---
RT NOTE: CALLED TO ROOM DUE TO DESATURATION AND MD SHORT WANTING VENT CHANGES TO BE MADE. ONCE IN ROOM, TOLD TO DECREASE PEEP TO 18 AND CHANGE I-TIME TO HAVE 1:1 RATIO. THEN REQUESTED TO DECREASE PEEP TO 16, THEN BACK TO 18. ALSO ASKED TO CHANGE PRESSURE TO 22. AT THIS POINT MD SHORT HAS CHOSEN TO LEAVE VENT SETTINGS AT PC: P 22, RR 18, PEEP 18, AND I-TIME OF 1.5. PRIMARY RT NOTIFIED ONCE SHE RETURNED FROM LUNCH. FAMILY CURRENTLY ON THEIR WAY.
--- NOTE | 2020-04-07 13:45 | NUR ---
FAMILY MEETING Family meeting to discuss plan of care. At this time family understands patient condition. Family verbalized understanding. Family wishes patient to be DNR.
[2020-04-07] MEDS: NOREPINEPHRINE 8 MG/250ML KIT 250 ML IV SCH (15:49)
[2020-04-07] MEDS: BUDESONIDE (INHALATION) 0.5 MG/2 ML NEB NEB SCH (22:00)
[2020-04-07] MEDS ORDERED: FUROSEMIDE 20 MG/2 ML VIAL IV SCH (22:00)
[2020-04-08] VITALS (74 sets, daily range): BP systolic 87–116; BP diastolic 52–76
[2020-04-08] MEDS ORDERED: ATRACURIUM BESYLATE (10 MG/ ML) 10 ML VIAL ONE (04:51)
[2020-04-08] MEDS: ATRACURIUM BESYLATE 1,000 MG in D5W 5% 150 ML IV SCH ×2 (05:00→21:40)
[2020-04-08] MEDS: fentaNYL Drip 2500mCg/250mlNS 250 ML IV SCH (05:00)
[2020-04-08] MEDS: MIDAZOLAM DRIP 50 mg/50mL 50 ML IV SCH ×2 (05:00→21:20)
[2020-04-08] MEDS: PROPOFOL 100 ML IV SCH ×3 (05:00→23:50)
[2020-04-08] MEDS: PIPERACILLIN-TAZOB 3.375GM 100 ML IV SCH ×4 (06:00→17:14)
[2020-04-08] MEDS: InsuLIN REG 1unit/0.01ml Soln (100units/ml) SC SCH ×4 (06:00→17:04)
[2020-04-08] MEDS: ACCU-CHEK COMFORT CURVE STRIP VI SCH ×4 (06:00→17:04)
[2020-04-08] MEDS: BUDESONIDE (INHALATION) 0.5 MG/2 ML NEB NEB SCH ×2 (06:27→22:11)
--- NOTE | 2020-04-08 07:40 | NUR ---
OPENING Report received from Anabel HACKETT RN.
[2020-04-08] MEDS: DOPamine 1600MCG/ML D5W 250 ML IV SCH (08:31)
--- NOTE | 2020-04-08 09:00 | NUR ---
FAMILY UPDATED Family updated on patients status and condition.
[2020-04-08] MEDS: DexAMETHasone SOD PHOS 10MG/1ML VIAL INJ IV SCH (09:43)
[2020-04-08] MEDS: SODIUM CHLOR 0.9% PF (SALINE LOCK) 10ML VIAL/SYR IV SCH ×2 (09:43→23:07)
[2020-04-08] MEDS: PANTOPRAZOLE 40 MG/10 ML VIAL INJ IV SCH ×2 (09:43→23:06)
[2020-04-08] MEDS: ZINC SULFATE 220mg CAP or TAB PO SCH (09:44)
[2020-04-08] MEDS: LINEZOLID 600MG/300ML 300 ML IV SCH ×2 (09:44→23:07)
[2020-04-08] MEDS: ASCORBIC ACID 1,000 MG TAB PO SCH (09:44)
[2020-04-08] MEDS: ENOXAPARIN SOD 80 MG/0.8ML SYRINGE SC SCH ×2 (09:44→23:07)
[2020-04-08] MEDS ORDERED: FUROSEMIDE 40 MG/4 ML VIAL IV ONE (10:00)
--- NOTE | 2020-04-08 11:07 | NUR ---
BEDSIDE Dr. Junaid candelaria.
--- NOTE | 2020-04-08 11:14 | NUR ---
PER DR SHORT Patient needs an enema for BM. Patients abdomen is firm on palpation. Patient will begin Reglan and continue feedings today. If patient does not tolerate, place order for TPN tonight.
[2020-04-08] MEDS ORDERED: METOCLOPRAMIDE HCL 5MG/ml INJ 2ml VIAL IV ONE (11:15)
[2020-04-08 11:42] LABS: Albumin 2.8 g/dL (3.4-5.0); Calcium 8.1 mg/dL (8.5-10.1); Potassium 3.6 mmol/L (3.5-5.1)
[2020-04-08 11:45] LABS: BUN/Creatinine Ratio 24.7; Bilirubin, Total 0.7 mg/dL (0.2-1.0); Total Protein 6.8 g/dL (6.4-8.2)
[2020-04-08] MEDS: POTASSIUM CHL 20MEQ/100ML 100 ML IV PRN (12:16)
[2020-04-08] MEDS: METOCLOPRAMIDE HCL 5MG/ml INJ 2ml VIAL IV SCH ×2 (14:00→23:06)
--- NOTE | 2020-04-08 15:39 | NUR ---
Nutrition Followup Note Wt: 98.7 kg Pt`s covid +. Pt is intubated, sedated with propofol running at 31.298 ml/hr which provides 826 kcal from lipids. Pt with TF of Glucerna 1.2 ordered running @ 30 ml/hr, with a goal rate of 80 ml/hr. Will continue to monitor PO status, skin status, pertinent labs and weight trends. Will f/u in 2-3 days. Est Energy needs: 5961-4919 kcals (20-23 kcal/kgBW) d/t Stg 3 CKD. Est Protein needs: 86-97 gms/day (0.8-0.9 gm/kgBW) d/t Stg 3 CKD, Will continue to monitor and reassess prn. Labs: Gluc 164 H, Ca 7.9 l, Alb 2.5 L, Note new labs pending BM: Pt had no BM today per RN note Skin: BS 13 mod risk, full wound care details in RN doc PES: 1) Increased nutrient needs aeb pt is sedated, intubated, NPO r/t pt with no PO intake 2) Obesity aeb 166% IBW and BMI of 38.2 kg/m2 r/t pt Hx of energy intake in excess of energy needs 3) Altered nutrition related lab values elev RFTs, low GFR, hyperglycemia, hypocalcemia, mod hypoalbuminemia r/t current/chronic medical condition Comments Will continue to closely monitor pertinent labs, NPO status and skin status prn. Will followup in 2-3 days 1) Continue to closely monitor pt NPO status. 2) If pt remains NPO for the next 48 hours, consider EN nutrition support Glucerna 1.2 @ 70 ml/hr goal rate without propofol. 3) Gradually advance pt to oral Renal Specific 90gProtein,2gNa,K2,low phos diet diet when medically feasible and as tolerated .4) Continue current plan of care
[2020-04-08] MEDS: NOREPINEPHRINE 8 MG/250ML KIT 250 ML IV SCH (15:49)
--- NOTE | 2020-04-08 16:00 | NUR ---
RECTAL TUBE PLACED
[2020-04-08] MEDS: Glucerna 1.2 Cal 1Liter BOTTLE GT SCH (20:00)
--- NOTE | 2020-04-08 20:40 | NUR ---
STARTED FEEDING STARTED FEEDING AT 10 CC
--- NOTE | 2020-04-08 21:35 | NUR ---
UPDATED FAMILY UPDATED GENTRY (DAUGHTER) ON PATIENTS STATUS AND POC, ALL QUESTIONS AND CONCERNS ADDRESSED.
[2020-04-09] VITALS (97 sets, daily range): BP systolic 85–110; BP diastolic 41–67
--- NOTE | 2020-04-09 00:05 | NUR ---
RESIDUAL 25 CC
[2020-04-09] MEDS: PIPERACILLIN-TAZOB 3.375GM 100 ML IV SCH ×4 (00:42→18:30)
[2020-04-09] MEDS: MIDAZOLAM DRIP 50 mg/50mL 50 ML IV SCH ×5 (01:50→21:50)
[2020-04-09] MEDS: PROPOFOL 100 ML IV SCH ×5 (03:00→21:50)
--- NOTE | 2020-04-09 03:30 | NUR ---
CARES FULL BED LINEN CHANGE, PARTIAL BED BATH. PATIENT DID NOT TOLERATE TURNS WELL, DESATURATED TO LOW 70%, BP DROOPED TO 76/45
--- NOTE | 2020-04-09 03:50 | NUR ---
CARES FULL BED LINEN CHANGE, PARTIAL BED BATH. PATIENT TOLERATED TURNS WELL
--- NOTE | 2020-04-09 04:00 | NUR ---
INCREASED FEEDING RATE INCREASED FROM 10CC TO 15CC RESIDUAL 20CC
[2020-04-09 05:17] LABS: Basophils # (auto) 0.1 10 ^3/uL (0-0.2); Basophils % (auto) 0.8 % (0.0-2.0); Eosinophils # (auto) 0.3 10 ^3/uL (0-0.8); Eosinophils % (auto) 2.4 % (0.0-7.0); Hemoglobin 10.7 g/dL (13.5-17.5); Lymphocytes # (auto) 1.4 10 ^3/uL (0.4-5.4); Lymphocytes % (auto) 10.1 % (10.0-50.0); Mean Corpuscular Hgb Conc. 33.4 g/dL (32.0-36.0); Mean Corpuscular Volume 89.8 fL (80.0-100.0); Monocytes # (auto) 0.6 10 ^3/uL (0-1.3); Monocytes % (auto) 4.4 % (0.0-12.0); Neutrophils # (auto) 11.1 10 ^3/uL (1.6-8.6); Neutrophils % (auto) 82.3 % (37.0-80.0); Nucleated Red Blood Cells % 0.1 %; Platelet Count (auto) 197 10^3/uL (140-450); Red Blood Cells 3.56 10^6/uL (4.5-5.90); Red Cell Distribution Width 14.5 % (11.8-14.3); White Blood Cell 13.4 10^3/uL (4.4-10.8)
[2020-04-09 05:33] LABS: Albumin 2.7 g/dL (3.4-5.0); Calcium 7.7 mg/dL (8.5-10.1); Potassium 3.1 mmol/L (3.5-5.1)
[2020-04-09 05:37] LABS: BUN/Creatinine Ratio 27.7; Bilirubin, Total 0.6 mg/dL (0.2-1.0); Total Protein 6.2 g/dL (6.4-8.2)
--- NOTE | 2020-04-09 05:50 | NUR ---
INCREASED FEEDING RESIDUAL IS 0 CC INCREASED FEEDING TO 25 CC/HR
[2020-04-09] MEDS: InsuLIN REG 1unit/0.01ml Soln (100units/ml) SC SCH ×4 (06:00→18:19)
[2020-04-09] MEDS: ACCU-CHEK COMFORT CURVE STRIP VI SCH ×4 (06:00→18:20)
--- NOTE | 2020-04-09 06:10 | NUR ---
PAGED HOSPITALIST REGARDING LOW K K 3.1
[2020-04-09] MEDS: METOCLOPRAMIDE HCL 5MG/ml INJ 2ml VIAL IV SCH ×3 (06:35→22:28)
--- NOTE | 2020-04-09 08:30 | NUR ---
TOF PATIENT ON PARALYTIC, TRAIN OF FOUR DONE, 0/4 TWITCHES NOTED ON 5 AMPLITUDE (BASELINE) WILL PER PROTOCOL.
[2020-04-09] MEDS: SODIUM CHLOR 0.9% PF (SALINE LOCK) 10ML VIAL/SYR IV SCH ×2 (10:00→22:28)
[2020-04-09] MEDS ORDERED: POTASSIUM CHL 20MEQ/100ML 100 ML IV ONE (10:00)
--- NOTE | 2020-04-09 10:30 | NUR ---
TUBE FEEDING INCREASED RESIDUALS 20CC, INCREASED TUBE FEEDINGS
--- NOTE | 2020-04-09 10:33 | NUR ---
PATIENTS DAUGHTER GENTRY CALLED FOR UPDATE PROVIDED PASSWORD, UPDATED ON STATUS THROUGHOUT THE NIGHT. ADDRESSED CONCERNS
[2020-04-09] MEDS: LINEZOLID 600MG/300ML 300 ML IV SCH ×2 (10:45→22:28)
[2020-04-09] MEDS: ASCORBIC ACID 1,000 MG TAB PO SCH (10:45)
[2020-04-09] MEDS: DexAMETHasone SOD PHOS 10MG/1ML VIAL INJ IV SCH (10:45)
[2020-04-09] MEDS: PANTOPRAZOLE 40 MG/10 ML VIAL INJ IV SCH ×2 (10:45→22:28)
[2020-04-09] MEDS: ENOXAPARIN SOD 80 MG/0.8ML SYRINGE SC SCH ×2 (10:45→22:29)
[2020-04-09] MEDS: ZINC SULFATE 220mg CAP or TAB PO SCH (10:45)
--- NOTE | 2020-04-09 11:57 | NUR ---
DR SHORT AT BEDSIDE DISCUSSED PATIENTS STATUS. MD AWARE PATIENTS DAUGHTER IS REQUESTING A PHONE CALL FOR UPDATE FROM
--- NOTE | 2020-04-09 12:00 | NUR ---
PEEP DECREASED TO [address] SHORT. PT. TOLERATING WELL, WILL CONTINUE TO MONITOR RESP. STATUS AND O2 SATS.
--- NOTE | 2020-04-09 12:05 | NUR ---
DR SHORT CALLED PATIENTS DAUGHTER TO UPDATE
--- NOTE | 2020-04-09 12:30 | NUR ---
TOF PATIENT ON PARALYTIC, TRAIN OF FOUR DONE, 0/4 TWITCHES NOTED ON 5 AMPLITUDE (BASELINE) WILL PER PROTOCOL.
[2020-04-09] MEDS: NOREPINEPHRINE 8 MG/250ML KIT 250 ML IV SCH (15:49)
--- NOTE | 2020-04-09 16:30 | NUR ---
TOF PATIENT ON PARALYTIC, TRAIN OF FOUR DONE, 0/4 TWITCHES NOTED ON 5 AMPLITUDE (BASELINE) PER MD, STOP INFUSION
--- NOTE | 2020-04-09 16:33 | NUR ---
DR SPICER AT BEDSIDE DISCUSSED PATIENTS STATUS AND PLAN OF CARE.
[2020-04-09] MEDS: fentaNYL Drip 2500mCg/250mlNS 250 ML IV SCH (16:47)
--- NOTE | 2020-04-09 18:30 | NUR ---
PATIENTS DAUGHTER GENTRY CALLED FOR UPDATE PROVIDED PASSWORD, UPDATED ON PLAN OF CARE AND CURRENT STATUS
--- NOTE | 2020-04-09 20:00 | NUR ---
INCREASED FEEDING RATE RESIDUAL 10 CC INCREASED FEEDING RATE FROM 40CC TO 45CC/HR. HOB 45 DEGREES.
[2020-04-09] MEDS: BUDESONIDE (INHALATION) 0.5 MG/2 ML NEB NEB SCH (22:22)
--- NOTE | 2020-04-09 23:31 | NUR ---
GENTRY (DAUGHTER) CALLED FOR UPDATE UPDATED HER ON PATIENTS, STATUS, VS AND POC. ALL QUESTIONS AND CONCERNS ADDRESSED.
[2020-04-10] VITALS (98 sets, daily range): BP systolic 80–125; BP diastolic 50–87
--- NOTE | 2020-04-10 | NUR ---
INCREASED FEEDING RATE RESIDUAL 0CC INCREASED FEEDING RATE FROM 45 CC TO 50 CC/HR
[2020-04-10] MEDS: PIPERACILLIN-TAZOB 3.375GM 100 ML IV SCH ×5 (00:42→18:30)
[2020-04-10] MEDS: PROPOFOL 100 ML IV SCH ×9 (00:43→23:29)
[2020-04-10] MEDS: MIDAZOLAM DRIP 50 mg/50mL 50 ML IV SCH ×5 (03:00→20:05)
[2020-04-10] MEDS: NOREPINEPHRINE 8 MG/250ML KIT 250 ML IV SCH ×2 (04:20→21:44)
[2020-04-10] MEDS: fentaNYL Drip 2500mCg/250mlNS 250 ML IV SCH ×2 (04:20→17:00)
[2020-04-10 05:45] LABS: BUN/Creatinine Ratio 27.2; Calcium 7.2 mg/dL (8.5-10.1)
[2020-04-10] MEDS: InsuLIN REG 1unit/0.01ml Soln (100units/ml) SC SCH ×4 (06:00→18:20)
[2020-04-10] MEDS: ACCU-CHEK COMFORT CURVE STRIP VI SCH ×4 (06:00→18:20)
[2020-04-10 06:09] LABS: Potassium 2.6 mmol/L (3.5-5.1)
[2020-04-10] MEDS: POTASSIUM CHL 20MEQ/100ML 100 ML IV PRN ×2 (06:42→08:59)
[2020-04-10] MEDS: METOCLOPRAMIDE HCL 5MG/ml INJ 2ml VIAL IV SCH (06:42)
[2020-04-10] MEDS: BUDESONIDE (INHALATION) 0.5 MG/2 ML NEB NEB SCH ×2 (07:13→22:25)
[2020-04-10] MEDS ORDERED: FUROSEMIDE 20 MG/2 ML VIAL IV ONE (08:00)
--- NOTE | 2020-04-10 08:00 | NUR ---
CARES PARTIAL BED LINEN CHANGE, PARTIAL BED BATH. STOOL CONTINUES TO LEAK AROUND RECTAL TUBE.
[2020-04-10 10:29] LABS: Basophils # (auto) 0.1 10 ^3/uL (0-0.2); Basophils % (auto) 0.5 % (0.0-2.0); Eosinophils # (auto) 0.4 10 ^3/uL (0-0.8); Eosinophils % (auto) 2.7 % (0.0-7.0); Hematocrit 31.7 % (41.0-53.0); Hemoglobin 10.5 g/dL (13.5-17.5); Lymphocytes # (auto) 1.3 10 ^3/uL (0.4-5.4); Lymphocytes % (auto) 9.7 % (10.0-50.0); Mean Corpuscular Hemoglobin 29.8 pg (28.0-32.0); Mean Corpuscular Hgb Conc. 33.2 g/dL (32.0-36.0); Mean Corpuscular Volume 89.7 fL (80.0-100.0); Monocytes # (auto) 0.6 10 ^3/uL (0-1.3); Monocytes % (auto) 4.6 % (0.0-12.0); Neutrophils # (auto) 11.1 10 ^3/uL (1.6-8.6); Neutrophils % (auto) 82.5 % (37.0-80.0); Nucleated Red Blood Cells % 0.1 %; Platelet Count (auto) 213 10^3/uL (140-450); Red Blood Cells 3.53 10^6/uL (4.5-5.90); Red Cell Distribution Width 15.6 % (11.8-14.3); White Blood Cell 13.5 10^3/uL (4.4-10.8)
[2020-04-10] MEDS: SODIUM CHLOR 0.9% PF (SALINE LOCK) 10ML VIAL/SYR IV SCH ×2 (11:15→21:42)
[2020-04-10] MEDS: PANTOPRAZOLE 40 MG/10 ML VIAL INJ IV SCH ×2 (11:15→21:42)
[2020-04-10] MEDS: LINEZOLID 600MG/300ML 300 ML IV SCH ×2 (11:15→21:42)
[2020-04-10] MEDS: ZINC SULFATE 220mg CAP or TAB PO SCH (11:16)
[2020-04-10] MEDS: ENOXAPARIN SOD 80 MG/0.8ML SYRINGE SC SCH ×2 (11:16→21:43)
[2020-04-10] MEDS: ASCORBIC ACID 1,000 MG TAB PO SCH (11:16)
[2020-04-10] MEDS: DexAMETHasone SOD PHOS 10MG/1ML VIAL INJ IV SCH (11:17)
[2020-04-10] MEDS ORDERED: TPN PER PHARMACY 0 ML IV SCH (11:30)
--- NOTE | 2020-04-10 11:30 | NUR ---
PATIENT NOT STABLE THIS AM FOR REPOSITIONING - SAO2 DECREASES
--- NOTE | 2020-04-10 11:35 | NUR ---
DR CHINO VISITS - ORDERS RECEIVED.
--- NOTE | 2020-04-10 11:40 | NUR ---
Assisted assigned RN. Administered scanned PO medications, and IVP medications as endorsed by assigned RN. Oral care completed with inline suctiontioning scant, clear. Orally suctioned, patient as small clear secretions. Patient repositioned with proper body alignment. Farrell catheter 400 ML of clear yellow/green urine. BSC 130. All care reported to assigned RN.
[2020-04-10 12:12] LABS: Albumin 2.6 g/dL (3.4-5.0); Magnesium 3.2 mg/dL (1.6-2.6)
[2020-04-10 12:17] LABS: Bilirubin, Direct 0.3 mg/dL (0-0.2); Bilirubin, Total 0.6 mg/dL (0.2-1.0); Phosphorus 4.5 mg/dL (2.5-4.90); Pre Albumin 57.3 mg/dL (20.0-40.0)
--- NOTE | 2020-04-10 12:20 | NUR ---
COVID TEST OBTAINED AND WALKED TO LAB
--- NOTE | 2020-04-10 12:30 | NUR ---
PATIENT'S DAUGHTER GENTRY PHONES - UPDATED ON PATIENT CONDITION - [id number] UNDERSTANDING.
[2020-04-10] MEDS: POTASSIUM CHL 20MEQ/100ML 100 ML IV SCH ×3 (12:45→13:00)
--- NOTE | 2020-04-10 12:45 | NUR ---
PATIENT ABLE TO TOLERATE TURN ASSIST AT LOW SETTING PER BED SETTING - SAO2 95-97%.
[2020-04-10 12:47] LABS: Urine Amorphous Crystal FEW /hpf (None Seen); Urine Bacteria NONE SEEN /hpf (None Seen); Urine Blood 2+ /uL (Negative); Urine Mucus FEW (None Seen); Urine WBC 14 /hpf (0 - 3)
[2020-04-10 12:55] LABS: Creatinine, Urine 74 mg/dL (30.0-125.0); Sodium Urine 8 mmol/L (40-220)
--- NOTE | 2020-04-10 14:30 | NUR ---
Assumed care for patient endorsed by primary RN for lunch break. Patient has oral temp of 98.2 F. Propofol IV hung for patient as ordered on eMar. Will continue care as endorsed by primary RN.
--- NOTE | 2020-04-10 15:00 | NUR ---
DR GALARZA VISITS PATIENT - ORDERS RECEIVED.
--- NOTE | 2020-04-10 17:28 | NUR ---
COVID TEST RECEIVED CALL FROM [facility] COVID TEST IS POSITIVE.
--- NOTE | 2020-04-10 17:30 | NUR ---
ACTIVE COUGH/GAG REFLEX NOTED WITH SUCTIONING.
[2020-04-10 18:54] LABS: Potassium 4.9 mmol/L (3.5-5.1)
[2020-04-10] MEDS ORDERED: TPN PER PHARMACY IV NR ×7 (20:00)
[2020-04-10 22:26] LABS: BUN/Creatinine Ratio 33.3
[2020-04-10 22:27] LABS: Calcium 7.6 mg/dL (8.5-10.1)
--- NOTE | 2020-04-10 22:36 | NUR ---
GENTRY (DAUGHTER) CALLED UPDATED HER ON PATIENTS STATUS AND POC, ALL QUESTIONS AND CONCERNS ADDRESSED.
[2020-04-11] VITALS (95 sets, daily range): BP systolic 89–126; BP diastolic 50–75
--- NOTE | 2020-04-11 00:50 | NUR ---
Changed PICC line dressing using sterile technique PICC line secured with Stat-lock; biodisc and occlusive dressing applied. No sign of redness, bleeding or irritation at the site. Patient tolerated dressing change well.
[2020-04-11] MEDS: PROPOFOL 100 ML IV SCH ×7 (02:59→23:43)
[2020-04-11] MEDS: fentaNYL Drip 2500mCg/250mlNS 250 ML IV SCH ×2 (04:00→17:09)
[2020-04-11] MEDS: MIDAZOLAM DRIP 50 mg/50mL 50 ML IV SCH ×6 (04:00→17:07)
--- NOTE | 2020-04-11 05:00 | NUR ---
DID NOT TOLERATE CARES DURING TURNING SATURATION DECREASED TO LOW 80% SYSTOLIC BLOOD PRESSURE DROPPED TO 80 mmHg APPLIED OPTIFOAM TO SACRUM AND RIGHT UPPER SHOULDER.
[2020-04-11] MEDS: InsuLIN REG 1unit/0.01ml Soln (100units/ml) SC SCH ×4 (05:18→19:45)
--- NOTE | 2020-04-11 05:20 | NUR ---
TRACE OF BLOOD NOTED IN STOOL WILL NOTIFY DAY SHIFT NURSE TO PASS INFORMATION TO MD AND POSSIBLY HOLDING LOVENOX.
[2020-04-11 05:56] LABS: Albumin 2.5 g/dL (3.4-5.0); Calcium 7.2 mg/dL (8.5-10.1)
[2020-04-11 06:00] LABS: Bilirubin, Total 0.5 mg/dL (0.2-1.0); Phosphorus 3.4 mg/dL (2.5-4.90)
[2020-04-11 06:03] LABS: Potassium 2.4 mmol/L (3.5-5.1)
[2020-04-11] MEDS: PIPERACILLIN-TAZOB 3.375GM 100 ML IV SCH ×4 (06:15→19:49)
[2020-04-11] MEDS: ACCU-CHEK COMFORT CURVE STRIP VI SCH ×4 (06:15→19:49)
[2020-04-11] MEDS: POTASSIUM CHL 20MEQ/100ML 100 ML IV PRN (06:16)
--- NOTE | 2020-04-11 06:21 | NUR ---
Respiratory note: RECEIVED PT FROM METAL BUMPER ON VENT V-12 PLUGGED INTO RED OUTLET. ALL VENT ALARMS ARE AUDIBLE, AND FUNCTIONING. AMBU BAG/MASK IS AT BEDSIDE CONNECTED TO AN O2 SOURCE. ETT IS 8.0 @ THE 23 LIP LINE SECURED WITH A SHAKILA. MOVED ETT FROM RIGHT, TO LEFT. NO ORAL/SKIN BREAK DOWN NOTED. BS ARE CLEAR/DIMINISHED BILATERALLY. SX FOR NO RETURN. GAG REFLEX NOTED. MEDNEB GIVEN INLINE VIA AEROGEN, WITH NO ADVERSE EFFECTS NOTED. EDEMA IS NOTED IN BOTH UPPER, AND LOWER EXTREMITIES. SKIN IS WARM, AND DRY TO THE TOUCH. PT IS UNRESPONSIVE TO VERBAL STIMULI. NO NEW VENT CHANGES ORDERED AT THIS TIME. WILL CONTINUE TO MONITOR PT. CHARTING COMPLETE FROM OUTSIDE OF PT ROOM PER COVID-19 PRECAUTIONS/PROTOCOL.
[2020-04-11] MEDS: BUDESONIDE (INHALATION) 0.5 MG/2 ML NEB NEB SCH ×2 (06:22→22:59)
--- NOTE | 2020-04-11 06:50 | NUR ---
K 2.4 - GAVE 20 MEQ POTASSIUM Stacie JACKSON
--- NOTE | 2020-04-11 07:00 | NUR ---
PROGRESS NOTES PATIENT CAN ONLY TOLERATE 15 DEGREE TERNS FROM SIDE TO SIDE WITHOUT DESATURATING.
--- NOTE | 2020-04-11 07:25 | NUR ---
Respiratory note: DR TAN THORPE REGARDING PT PO2 CRITICAL ABG VALUE OF 49.9. RN AWARE.
[2020-04-11] MEDS ORDERED: POTASSIUM CHL 20MEQ/100ML 100 ML IV SCH (09:45)
[2020-04-11] MEDS ORDERED: POTASSIUM EFFERVESENT TAB 25 MEQ GT ONE (10:30)
--- NOTE | 2020-04-11 11:48 | NUR ---
Nutrition Followup Note Wt: 102.4 kg Pt`s covid +. Pt is intubated, sedated with propofol running at 31.298 ml/hr which provides 826 kcal from lipids. Pt with TPN running at 49 ml/hr to provide 1050 kcal, 50g protein, 850 NCP. TPN and propofol provides 1876 kcals, and 50g protein. This is 76-87% of kcal needs and 52-58% of protein needs. Est Energy needs: 7015-2278 kcals (20-23 kcal/kgBW) d/t Stg 3 CKD. Est Protein needs: 86-97 gms/day (0.8-0.9 gm/kgBW) d/t Stg 3 CKD, Will continue to monitor and reassess prn. Labs: GLUC 147H, K 2.4L, BUN 47, Creat 1.62H, Ca 7.2L, Alb 2.5L BM: Pt had no BM today per RN note, pt with 200 ml of gastric and stool 04/11 per RN note Skin: BS 13 mod risk, full wound care details in RN doc PES: 1) Increased nutrient needs aeb pt is sedated, intubated, NPO r/t pt with no PO intake 2) Obesity aeb 166% IBW and BMI of 38.2 kg/m2 r/t pt Hx of energy intake in excess of energy needs 3) Altered nutrition related lab values elev RFTs, low GFR, hyperglycemia, hypocalcemia, mod hypoalbuminemia r/t current/chronic medical condition Comments Will continue to closely monitor pertinent labs, NPO status and skin status prn. Will followup in 2-3 days 1) Continue to closely monitor pt NPO status. 2) Continue TPN with propofol to provide >75% of needs, consider EN nutrition support Glucerna 1.2 @ 70 ml/hr goal rate without propofol. when medically feasible 3) Gradually advance pt to oral Renal Specific 90gProtein,2gNa,K2,low phos diet diet when medically feasible and as tolerated .4) Continue current plan of care
[2020-04-11] MEDS: DexAMETHasone SOD PHOS 10MG/1ML VIAL INJ IV SCH (13:50)
[2020-04-11] MEDS: PANTOPRAZOLE 40 MG/10 ML VIAL INJ IV SCH ×2 (13:50→22:00)
[2020-04-11] MEDS: SODIUM CHLOR 0.9% PF (SALINE LOCK) 10ML VIAL/SYR IV SCH ×2 (13:51→22:00)
[2020-04-11] MEDS: LINEZOLID 600MG/300ML 300 ML IV SCH ×2 (13:51→22:00)
[2020-04-11] MEDS: ZINC SULFATE 220mg CAP or TAB PO SCH (13:51)
[2020-04-11] MEDS: ASCORBIC ACID 1,000 MG TAB PO SCH (13:52)
[2020-04-11] MEDS: POTASSIUM CHL 20MEQ/100ML 100 ML IV SCH ×2 (13:55→16:19)
[2020-04-11] MEDS: ENOXAPARIN SOD 80 MG/0.8ML SYRINGE SC SCH ×2 (13:55→22:00)
[2020-04-11] MEDS ORDERED: REMDESIVIR 200 MG in NS 210ml LOADING DOSE ADULT IV ONE (17:00)
[2020-04-11] MEDS ORDERED: TPN PER PHARMACY IV NR ×8 (20:00)
--- NOTE | 2020-04-11 20:00 | NUR ---
ADMITTED ON 03/21/20 WITH FEVER, DYSPNEA AND COUGH. INTUBATED IN OUR ER AND BROUGHT TO ICU. RESPIRATORY FAILURE. DREA. RESPIRATORY ISOLATION. SEDATED WITH VERSED AND FENTANYL. VERY HYPOACTIVE GAG. ORAL CARE DONE. ORALLY INTUBATED. ORAL NGT clamped. UNABLE TO TURN. UNSTABLE . MAXIMUM FENTANYL AND VERSED. PROPOFOL AT 40 MCG/KG/MIN.
--- NOTE | 2020-04-11 20:49 | NUR ---
potassium lab drawn
--- NOTE | 2020-04-11 22:00 | NUR ---
POTASSIUM SPECIMEN SLIGHTLY HEMOLYZED. LAB PERSONNEL JUANA THE SPECIMEN LATER. NSR WITHOUT ECTOPY. NO CHANGE IN LEVOPHED. SEDATION WITH VERSED, FENTANYL AND DIPRIVAN. NO DRNG FROM THE FLEXASEAL. URINE OUTPUT ADEQUATE. TEMPERATURE NORMAL.
[2020-04-12] VITALS (101 sets, daily range): BP systolic 92–126; BP diastolic 57–78
--- NOTE | 2020-04-12 | NUR ---
NO CHANGE IN ASSESSMENT. REMAINS A DNR. VSS. NOTHING SUCTIONED FROM THE ETT
[2020-04-12] MEDS: PIPERACILLIN-TAZOB 3.375GM 100 ML IV SCH ×4 (00:25→21:20)
[2020-04-12] MEDS: ACCU-CHEK COMFORT CURVE STRIP VI SCH ×4 (00:26→18:17)
[2020-04-12] MEDS: POTASSIUM CHL 20MEQ/100ML 100 ML IV PRN ×2 (01:27→05:00)
[2020-04-12] MEDS: NOREPINEPHRINE 8 MG/250ML KIT 250 ML IV SCH (04:00)
[2020-04-12 04:49] LABS: Basophils # (auto) 0.1 10 ^3/uL (0-0.2); Basophils % (auto) 0.6 % (0.0-2.0); Eosinophils # (auto) 0.6 10 ^3/uL (0-0.8); Eosinophils % (auto) 4.9 % (0.0-7.0); Hematocrit 28.8 % (41.0-53.0); Hemoglobin 9.4 g/dL (13.5-17.5); Lymphocytes # (auto) 1.2 10 ^3/uL (0.4-5.4); Mean Corpuscular Hemoglobin 29.4 pg (28.0-32.0); Mean Corpuscular Hgb Conc. 32.6 g/dL (32.0-36.0); Mean Corpuscular Volume 90.2 fL (80.0-100.0); Monocytes # (auto) 0.7 10 ^3/uL (0-1.3); Monocytes % (auto) 5.8 % (0.0-12.0); Neutrophils # (auto) 9.1 10 ^3/uL (1.6-8.6); Neutrophils % (auto) 78.7 % (37.0-80.0); Platelet Count (auto) 167 10^3/uL (140-450); Red Blood Cells 3.19 10^6/uL (4.5-5.90); Red Cell Distribution Width 15.8 % (11.8-14.3); White Blood Cell 11.5 10^3/uL (4.4-10.8)
--- NOTE | 2020-04-12 04:49 | NUR ---
AM LABS SENT. [facility] BATH. PARTIAL LINEN CHANGE. SMALL AMOUNT OF BROWN STOOL WITH BLOOD ON PAD. DID DROP HIS O2 SAT TO 93 WITH TURNING RIGHT AND LEFT. NOTHING SUCTIONED FROM THE ETT. ORAL CARE DONE. ALL PULSES PALPABLE. HEELS OFF BED. NEW BP CUFF.
[2020-04-12] MEDS: MIDAZOLAM DRIP 50 mg/50mL 50 ML IV SCH ×4 (04:56→17:33)
[2020-04-12] MEDS: fentaNYL Drip 2500mCg/250mlNS 250 ML IV SCH ×2 (04:57→14:25)
[2020-04-12 05:16] LABS: Albumin 2.3 g/dL (3.4-5.0); Calcium 7.5 mg/dL (8.5-10.1); Magnesium 2.9 mg/dL (1.6-2.6)
[2020-04-12 05:20] LABS: BUN/Creatinine Ratio 29.6; Bilirubin, Total 0.5 mg/dL (0.2-1.0); Total Protein 5.8 g/dL (6.4-8.2)
[2020-04-12 05:35] LABS: Potassium 2.9 mmol/L (3.5-5.1)
[2020-04-12] MEDS: InsuLIN REG 1unit/0.01ml Soln (100units/ml) SC SCH ×5 (06:00→18:16)
[2020-04-12] MEDS: PROPOFOL 100 ML IV SCH ×7 (06:52→17:58)
[2020-04-12] MEDS: BUDESONIDE (INHALATION) 0.5 MG/2 ML NEB NEB SCH ×2 (07:33→22:48)
--- NOTE | 2020-04-12 08:30 | NUR ---
AM ASSESSMENT COMPLETED. REMAINS INTUBATED, SEDATED. VSS, AFEBRILE. PT NOW TOLERATING TO N=BE REPOSITION. PT REMAINS ON VENTILATOR ON PC REQUIRING 80% FIO2, PO2 IN THE LOW 90'S. LESS SECRETIONS BEEN SUCTIONED THROUGH ETT AND THROUGH MOUTH TODAY THAN YESTERDAY. PT WAS STARTED ON REMDESEVIR ANTIVIRAL MEDICATION FOR COVID 19. TODAY PT'S WOUNDS WERE LOOKED AT. PICTURES WILL BE TAKEN SINCE PT IS ABLE TO TOLERATE BEEN TURNED. PT HAS RECTAL BLEEDING AROUND RECTAL TUBE INSERTION SITE SO LOVENOX WILL BE HELD FOR TODAY. ALL MONITOR ALARMS AND EQUIPMENT VERIFIED. PT'S ETT SECURED IN PLACED, OGT PLACEMENT CONFIRMED OGT TO LIS EXCRETING YELLOW BILE. PT HAS OK OXYGENATION AND ETT IS SECURED AT MARKINGS INDICATED WHEN 1ST INTUBATED. ALL GGT'S VERIFIED, REFER TO IV FLOW SHEET FOR IV MED ADMINISTRATION & TITRATION. PT REMAINS ON CLUSTER CARE FOR COVID 19 AIRBORNE ISOLATION.
[2020-04-12] MEDS: ENOXAPARIN SOD 80 MG/0.8ML SYRINGE SC SCH ×2 (10:00→22:00)
[2020-04-12] MEDS ORDERED: POTASSIUM PHOSPHATE 26.4 MEQ in SODIUM CHL 0.9% 100 ML IV ONE (10:00)
[2020-04-12] MEDS ORDERED: POTASSIUM PHOSPHATE 44 MEQ in D5W 5% 250 ML IV ONE (10:00)
[2020-04-12] MEDS: SODIUM CHLOR 0.9% PF (SALINE LOCK) 10ML VIAL/SYR IV SCH ×2 (10:01→22:00)
[2020-04-12] MEDS: PANTOPRAZOLE 40 MG/10 ML VIAL INJ IV SCH ×2 (10:01→22:00)
[2020-04-12] MEDS: LINEZOLID 600MG/300ML 300 ML IV SCH ×2 (10:01→22:00)
[2020-04-12] MEDS: ASCORBIC ACID 1,000 MG TAB PO SCH (10:02)
[2020-04-12] MEDS: ZINC SULFATE 220mg CAP or TAB PO SCH (10:02)
--- NOTE | 2020-04-12 12:00 | NUR ---
WOUND CARE NOTE: IN TO SEE PATIENT AT THIS TIME D/T NEW WOUND ISSUES. PATIENT IS IN 110A, COVID POSITIVE, AIRBORNE ISOLATION. PATIENT CONTINUES TO BE INTUBATED, SEDATED. CURRENT ROSANGELA SCORE IS 10. PATIENT RESTING ON ICU LOW AIRLOSS BED. PATIENT HAS BEEN TOO UNSTABLE TO TURN, BUT IS MORE HEMODYNAMICALLY STABLE CURRENTLY. PATIENT HAS DEVELOPED A STAGE 2 PRESSURE INJURY TO SACRUM, AND SKIN TEAR OVER DARK RED INDURATION TO RIGHT FLANK. RIGHT DORSAL HAND WOUND IS RESOLVED, LEFT OPEN TO AIR. PATIENT TURNED TO RIGHT SIDE. HE IS NOTED TO HAVE A 1.5 X 0.7 PARTIAL THICKNESS STAGE 2 PRESSURE INJURY TO RIGHT SACRUM/BUTTOCK, OVER DARK RED PERIWOUND. APPLIED THERAHONEY, OPTIFOAM GENTLE DRESSING. PATIENT NOTED TO HAVE INDWELLING RECTAL TUBE, WITH DARK BROWN LIQUID STOOL IN TUBING. PATIENT TURNED TO LEFT SIDE. HE HAS A 2 X 1 CM SKIN TEAR WITHIN A 11 X 9 INDURATED DARK RED AREA OF RIGHT FLANK. WOUND DRAINING LIGHT SEROUS DRAINAGE, WOUND PARTIAL THICKNESS. APPLIED THERAHONEY, OPTIFOAM GENTLE DRESSING. PATIENT REPOSITIONED ONTO RIGHT SIDE, REDISTRIBUTING PRESSURE POINTS WITH PILLOWS/WEDGES. RECOMMEND: SIDE TO SIDE POSITIONING ONLY, AVOIDING SUPINE POSITION; DAILY DRESSING CHANGES TO SACRAL AND RIGHT FLANK WOUNDS WITH THERAHONEY, OPTIFOAM GENTLE DRESSINGS, CONTINUATION WITH ALL OTHER WOUND CARE ORDERS PREVIOUSLY PRESCRIBED BY MD. WOUND CARE TEAM WILL CONTINUE TO MONITOR. Addendum: 04/12/20 at 1539 by Cori Busby RN Amended: Links added.
--- NOTE | 2020-04-12 13:55 | NUR ---
THE PATIENT SHOWS SIGNS OF RECTAL BLEEDING LOVENOX HELD. DR FLORES NOTIFIED.
[2020-04-12] MEDS: POTASSIUM CHL 20MEQ/100ML 100 ML IV SCH ×3 (16:00→20:22)
[2020-04-12] MEDS: REMDESIVIR 100mg in NS 230ml DAILYx4DAYS (NO VENT) IV SCH (17:47)
--- NOTE | 2020-04-12 18:01 | NUR ---
Respiratory note: RECEIVED PT ON VENT V12, VENT CONNECTED TO RED OUTLET AND O2 SOURCE ALARMS ARE SET AND AUDIBLE. AMBU BAG AND MASK AT BEDSIDE. VENT CHECK DONE BY PTS ROOM DOOR DUE TO COVID PRECAUTIONS. NO CHANGES MADE WILL CONTINUE TO MONITOR.
--- NOTE | 2020-04-12 18:30 | NUR ---
PT GIVEN WHOLE BATH. FULL LINEN CHANGE. TOLERATED REPOSITIONING WELL.
--- NOTE | 2020-04-12 19:00 | NUR ---
REPORT GIVEN TO DEMAND PLANNING MANAGER. MARLENI HUERTA. ENDORSED TO GIVE ZOSYN BECAUSE RENDESIVIR STILL INFUSING. ALSO ENDORSED TO ADMINISTER THIRD BAG OF POTASSIUM SINCE K PHOS INFUSED LATE.
[2020-04-12] MEDS ORDERED: TPN PER PHARMACY IV NR ×8 (20:00)
--- NOTE | 2020-04-12 20:33 | NUR ---
Midline Placement: Patient educated on need for midline placement. All risks and benefits explained and all questions and concerns addresses prior to procedure. 18g/10cm midline inserted via LEFT BASILIC vein using Ultrasound. Sterile technique utilized. Blood return obtained from SINGLE lumen and flushed easily with NS using proper technique. Midline secured with saline lock; biodisc and occlusive dressing applied. Primary RN notified. Midline lot # .
--- NOTE | 2020-04-12 20:55 | NUR ---
ETT ADVANCED PAGED TO BEDSIDE BY RN. WENT INTO BEDSIDE IN FULL PPE DUE TO COVID PRECAUTIONS. RN BRADLEY AT BEDSIDE. RN CONCERN WITH ETT. AUDIBLE LEAK NOTED. ETT NOTED TO BE WITHDRAWN MORE THAN DOCUMENTED. LOOKING AT PREVIOUS CXR DECISION TO ADVANCE TUBE WAS MADE. ADVANCED TO 25CMS AT THE LIP. ETT PLACEMENT CONFIRMED BY CXR. NEW HOLISTER ALSO PLACED DUE TO ADHESIVE WEAR AND TEAR. RN AT BEDSIDE AND AWARE OF ALL CHANGES.
--- NOTE | 2020-04-12 22:37 | NUR ---
Respiratory note: AT BEDSIDE IN FULL PPE, ROUTINE VENT CHECK DONE, BS ARE FINE COURSE SXD VIA ETT FOR SMALL AMOUNT OF GRAMAJO SECRETIONS. GAG NOTED. MEDS GIVEN INLINE VIA AEROGEN WITHOUT ADVERSE REACTION NOTED. NO VENT CHANGES MADE WILL CONTINUE TO MONITOR.
[2020-04-13] VITALS (81 sets, daily range): BP systolic 88–123; BP diastolic 61–95
--- NOTE | 2020-04-13 02:12 | NUR ---
Respiratory note: AT BEDSIDE IN FULL PPE, ROUTINE VENT CHECK DONE. PT COMPLIANCE IS NOTED TO BE STEADILY INCREASING. RN BRADLEY AND LEAD RT MAX COMMUNICATED ON PTS FINDINGS.
[2020-04-13] MEDS: ACCU-CHEK COMFORT CURVE STRIP VI SCH ×4 (04:10→18:00)
[2020-04-13] MEDS: InsuLIN REG 1unit/0.01ml Soln (100units/ml) SC SCH ×4 (04:10→18:00)
[2020-04-13 04:53] LABS: Hematocrit 29.8 % (41.0-53.0); Hemoglobin 9.6 g/dL (13.5-17.5); Mean Corpuscular Hemoglobin 29.7 pg (28.0-32.0); Mean Corpuscular Hgb Conc. 32.3 g/dL (32.0-36.0); Mean Corpuscular Volume 91.9 fL (80.0-100.0); Platelet Count (auto) 147 10^3/uL (140-450); Red Blood Cells 3.24 10^6/uL (4.5-5.90); Red Cell Distribution Width 16.8 % (11.8-14.3); White Blood Cell 12.9 10^3/uL (4.4-10.8)
[2020-04-13 04:58] LABS: Albumin 2.3 g/dL (3.4-5.0); Calcium 7.9 mg/dL (8.5-10.1); Magnesium 2.2 mg/dL (1.6-2.6); Potassium 3.3 mmol/L (3.5-5.1)
[2020-04-13 05:00] LABS: Band Neutrophils % (manual) 0; Basophils % (manual) 0 (0.0-2.0); Blast Cells 0; Metamyelocytes % 0; Monocytes % (manual) 0 (0-12); Promyelocytes % 0; Reactive Lymphocytes 0
[2020-04-13 05:03] LABS: BUN/Creatinine Ratio 24.7; Bilirubin, Total 0.4 mg/dL (0.2-1.0); Phosphorus 2.7 mg/dL (2.5-4.90); Total Protein 5.9 g/dL (6.4-8.2)
[2020-04-13 05:33] LABS: Eosinophils % (manual) 22 (0-7); Lymphocytes % (manual) 13 (10.0-50.0); Myelocytes % 1
[2020-04-13] MEDS: PIPERACILLIN-TAZOB 3.375GM 100 ML IV SCH ×4 (06:01→18:05)
--- NOTE | 2020-04-13 07:15 | NUR ---
REPORT RECEIVED FROM FLY FINISHER NURSE.
[2020-04-13] MEDS: BUDESONIDE (INHALATION) 0.5 MG/2 ML NEB NEB SCH ×2 (07:28→22:24)
[2020-04-13] MEDS: PROPOFOL 100 ML IV SCH ×4 (07:34→17:19)
[2020-04-13] MEDS: MIDAZOLAM DRIP 50 mg/50mL 50 ML IV SCH ×3 (07:34→15:12)
[2020-04-13] MEDS: POTASSIUM CHL 20MEQ/100ML 100 ML IV SCH ×2 (09:00→11:03)
[2020-04-13] MEDS ORDERED: POTASSIUM CHLORIDE 20 MEQ in SODIUM CHLORIDE 0.9% 1,000 ML IV SCH (09:15)
[2020-04-13] MEDS: SODIUM CHLOR 0.9% PF (SALINE LOCK) 10ML VIAL/SYR IV SCH ×2 (09:20→22:00)
[2020-04-13] MEDS: PANTOPRAZOLE 40 MG/10 ML VIAL INJ IV SCH ×2 (09:20→22:00)
[2020-04-13] MEDS: LINEZOLID 600MG/300ML 300 ML IV SCH ×2 (09:21→22:00)
[2020-04-13] MEDS: ZINC SULFATE 220mg CAP or TAB PO SCH (09:21)
[2020-04-13] MEDS: ASCORBIC ACID 1,000 MG TAB PO SCH (09:22)
[2020-04-13] MEDS: ENOXAPARIN SOD 80 MG/0.8ML SYRINGE SC SCH ×2 (09:22→22:00)
[2020-04-13] MEDS ORDERED: SOD CHL 0.9%/ KCL 20MEQ 1,000 ML IV SCH (09:30)
--- NOTE | 2020-04-13 09:58 | NUR ---
FAMILY DAUGHTER UPDATED ON PATIENT STATUS. ALL QUESTIONS AND CONCERNS ADDRESSED AT THIS TIME
[2020-04-13] MEDS: ACETAMINOPHEN 500 MG TAB PO PRN (10:06)
--- NOTE | 2020-04-13 11:37 | NUR ---
DR. CHINO AT BEDSIDE
--- NOTE | 2020-04-13 11:40 | NUR ---
Nutrition Followup Note Wt: 106.6 kg Pt`s covid +. Pt is intubated, sedated with propofol running at 31.298 ml/hr which provides 826 kcal from lipids. Pt with TPN running at 65 ml/hr to provide 1250 kcal, 100g protein, 850 NCP. Pt with a new TPN order of 71 ml/hr to provide 1290 kcal and 110g protein. Est Energy needs: 2277-7513 kcals (20-23 kcal/kgBW) Est Protein needs: 86-107 gms/day (0.8-1 gm/kgBW) Will continue to monitor and reassess prn. Labs: BUN 24H, GLUC 121H, Ca 7.9L, Alb 2.3L BM: Pt had no BM today per RN note, pt with 145 ml of gastric and stool 04/11 per RN note Skin: BS 13 mod risk, full wound care details in RN doc PES: 1) Increased nutrient needs aeb pt is sedated, intubated, NPO r/t pt with no PO intake 2) Obesity aeb 166% IBW and BMI of 38.2 kg/m2 r/t pt Hx of energy intake in excess of energy needs Partially resolved: 3) Altered nutrition related lab values elev RFTs, low GFR, hyperglycemia, hypocalcemia, mod hypoalbuminemia r/t current/chronic medical condition Comments Will continue to closely monitor pertinent labs, NPO status and skin status prn. Will followup in 2-3 days 1) Continue to closely monitor pt NPO status. 2) Continue TPN with propofol to provide >75% of needs, consider EN nutrition support Glucerna 1.2 @ 70 ml/hr goal rate without propofol. when medically feasible 3) Continue current plan of care
[2020-04-13] MEDS: NOREPINEPHRINE 8 MG/250ML KIT 250 ML IV SCH (12:16)
[2020-04-13] MEDS: fentaNYL Drip 2500mCg/250mlNS 250 ML IV SCH (12:52)
--- NOTE | 2020-04-13 14:22 | NUR ---
PATIENT HEMODYNAMICALLY UNSTABLE DOES NOT TOLERATE BEING TURNED. PERIODICAA Addendum: 04/13/20 at 1431 by Rodger Coates RN PATIENT HEMODYNAMICALLY UNSTABLE . DOES NOT TOLERATE BEING TURNED. BLOOD PRESSURE FLUCTUATES. SPO2 DROPS. PERIODICALLY ADJUSTED PILLOWS UNDERNEATH BACK. THE ACTUAL TIME IS 0800
--- NOTE | 2020-04-13 14:44 | NUR ---
SPOKE TO THE PATIENTS DAUGHTER OVER THE PHONE. UPDATED HER ON THE PLAN OF CARE.
[2020-04-13] MEDS: REMDESIVIR 100mg in NS 230ml DAILYx4DAYS (NO VENT) IV SCH (17:08)
[2020-04-13] MEDS ORDERED: TPN PER PHARMACY IV NR ×10 (20:00)
[2020-04-14] VITALS (55 sets, daily range): BP systolic 101–148; BP diastolic 60–93
[2020-04-14] MEDS: PIPERACILLIN-TAZOB 3.375GM 100 ML IV SCH ×4 (06:00→18:51)
[2020-04-14] MEDS: InsuLIN REG 1unit/0.01ml Soln (100units/ml) SC SCH ×4 (06:00→18:00)
[2020-04-14] MEDS: ACCU-CHEK COMFORT CURVE STRIP VI SCH ×4 (06:00→18:51)
[2020-04-14] MEDS: MIDAZOLAM DRIP 50 mg/50mL 50 ML IV SCH ×4 (07:29→17:42)
[2020-04-14 07:44] LABS: Albumin 2.1 g/dL (3.4-5.0); Magnesium 2.2 mg/dL (1.6-2.6); Potassium 4.3 mmol/L (3.5-5.1)
[2020-04-14 07:48] LABS: BUN/Creatinine Ratio 23.4; Bilirubin, Total 0.4 mg/dL (0.2-1.0); Phosphorus 4.7 mg/dL (2.5-4.90); Total Protein 5.7 g/dL (6.4-8.2)
[2020-04-14] MEDS: PROPOFOL 100 ML IV SCH ×3 (08:20→17:34)
[2020-04-14] MEDS: ACETAMINOPHEN 500 MG TAB PO PRN ×2 (09:00→11:28)
[2020-04-14] MEDS: LINEZOLID 600MG/300ML 300 ML IV SCH ×2 (10:18→22:00)
[2020-04-14] MEDS: BUDESONIDE (INHALATION) 0.5 MG/2 ML NEB NEB SCH ×2 (11:12→22:48)
[2020-04-14] MEDS: PANTOPRAZOLE 40 MG/10 ML VIAL INJ IV SCH ×2 (11:13→22:00)
[2020-04-14] MEDS: ASCORBIC ACID 1,000 MG TAB PO SCH (11:15)
[2020-04-14] MEDS: SODIUM CHLOR 0.9% PF (SALINE LOCK) 10ML VIAL/SYR IV SCH ×2 (11:15→22:00)
[2020-04-14] MEDS: ENOXAPARIN SOD 80 MG/0.8ML SYRINGE SC SCH ×2 (11:16→22:00)
[2020-04-14] MEDS: ZINC SULFATE 220mg CAP or TAB PO SCH (11:17)
--- NOTE | 2020-04-14 13:40 | NUR ---
SPOKE TO PATIENTS DAUGHTER OVER THE PHONE. UPDATED HER ON PATIENTS STATUS.
[2020-04-14] MEDS: fentaNYL Drip 2500mCg/250mlNS 250 ML IV SCH (14:29)
--- NOTE | 2020-04-14 14:30 | NUR ---
SPOKE TO DR WILSON OVER THE PHONE. UPDATED HIM ON PATIENT STATUS. VENT CHANGE ORDERS RECIEVED
[2020-04-14] MEDS ORDERED: FUROSEMIDE 40 MG/4 ML VIAL ONE ×2 (15:25→20:54)
[2020-04-14] MEDS ORDERED: FUROSEMIDE 40 MG/4 ML VIAL IV ONE ×2 (15:30→21:00)
[2020-04-14] MEDS: NOREPINEPHRINE 8 MG/250ML KIT 250 ML IV SCH (15:49)
[2020-04-14] MEDS: REMDESIVIR 100mg in NS 230ml DAILYx4DAYS (NO VENT) IV SCH (15:59)
[2020-04-14] MEDS ORDERED: SODIUM BICARBONATE 8.4 % INJ 50ML VIAL IV ONE (16:30)
--- NOTE | 2020-04-14 16:40 | NUR ---
SADIKI AT BEDSIDE
--- NOTE | 2020-04-14 16:50 | NUR ---
CLEANED PATIENT. DID PARTIAL LINEN CHANGE.
[2020-04-14] MEDS ORDERED: methylPREDNISolone SOD SUCC 125 MG/2 ML VL ONE (21:04)
[2020-04-14] MEDS: TPN PER PHARMACY IV NR ×9 (21:36)
--- NOTE | 2020-04-14 21:40 | NUR ---
s/w daughter-breanna via telephone; instructed her that her dad (patient) has a grave prognosis and that we will let immediate family come to see him tonight; explained the risks and will need to wear protective equipment when arrive on unit; daughter stated they will be in as soon as possible.
[2020-04-15] VITALS (82 sets, daily range): BP systolic 93–117; BP diastolic 49–67
[2020-04-15] MEDS: InsuLIN REG 1unit/0.01ml Soln (100units/ml) SC SCH ×4 (00:09→17:22)
[2020-04-15] MEDS: ACCU-CHEK COMFORT CURVE STRIP VI SCH ×4 (00:11→17:24)
[2020-04-15] MEDS: PIPERACILLIN-TAZOB 3.375GM 100 ML IV SCH ×4 (06:00→18:26)
--- NOTE | 2020-04-15 07:16 | NUR ---
REPORT RECEIVED FROM ORACLE FINANCIAL APPLICATION DEVELOPER RN
[2020-04-15] MEDS: PROPOFOL 100 ML IV SCH ×4 (07:18→15:23)
[2020-04-15] MEDS: MIDAZOLAM DRIP 50 mg/50mL 50 ML IV SCH ×3 (07:18→16:58)
[2020-04-15] MEDS: BUDESONIDE (INHALATION) 0.5 MG/2 ML NEB NEB SCH (07:25)
[2020-04-15 07:54] LABS: Basophils # (auto) 0 10 ^3/uL (0-0.2); Basophils % (auto) 0.2 % (0.0-2.0); Eosinophils # (auto) 0.2 10 ^3/uL (0-0.8); Eosinophils % (auto) 1.6 % (0.0-7.0); Hematocrit 28.1 % (41.0-53.0); Lymphocytes # (auto) 0.5 10 ^3/uL (0.4-5.4); Lymphocytes % (auto) 4.6 % (10.0-50.0); Mean Corpuscular Hemoglobin 30.3 pg (28.0-32.0); Mean Corpuscular Hgb Conc. 32.1 g/dL (32.0-36.0); Mean Corpuscular Volume 94.3 fL (80.0-100.0); Monocytes # (auto) 0.2 10 ^3/uL (0-1.3); Monocytes % (auto) 1.9 % (0.0-12.0); Neutrophils # (auto) 10.1 10 ^3/uL (1.6-8.6); Neutrophils % (auto) 91.7 % (37.0-80.0); Nucleated Red Blood Cells % 0.2 %; Platelet Count (auto) 116 10^3/uL (140-450); Red Blood Cells 2.98 10^6/uL (4.5-5.90)
[2020-04-15] MEDS ORDERED: methylPREDNISolone SOD SUCC 40 MG/ML VL IV SCH ×2 (08:00→14:00)
[2020-04-15 08:04] LABS: Albumin 2.1 g/dL (3.4-5.0); Magnesium 2.3 mg/dL (1.6-2.6); Potassium 4.5 mmol/L (3.5-5.1)
[2020-04-15 08:09] LABS: BUN/Creatinine Ratio 24.9; Bilirubin, Total 0.4 mg/dL (0.2-1.0)
[2020-04-15 08:13] LABS: INR 1.05 (0.9-1.15); Partial Thromboplastin Time 33.2 sec (23.64-32.05)
[2020-04-15 08:19] LABS: CRP High Sensitivity 9.82 mg/dL (< 0.3)
--- NOTE | 2020-04-15 08:47 | NUR ---
DR. CHINO UPDATED ON PATIENT STATUS AND ABG RESULTS ORDERS RECEIVED
--- NOTE | 2020-04-15 08:55 | NUR ---
FAMILY UPDATED ON PATIENT STATUS AFTER PROVIDING CORRECT PASSWORD. ALL QUESTIONS AND CONCERNS ADDRESSED AT THIS TIME
[2020-04-15] MEDS ORDERED: SODIUM CHLORIDE 0.9% 1,000 ML IV SCH (09:15)
--- NOTE | 2020-04-15 09:57 | NUR ---
LOVENOX AM DOSE HELD AT THIS TIME DUE TO BLEEDING IN MOUTH AND ET TUBE. WILL INFORM
[2020-04-15] MEDS: ENOXAPARIN SOD 80 MG/0.8ML SYRINGE SC SCH ×2 (10:00→22:00)
--- NOTE | 2020-04-15 10:01 | NUR ---
UNABLE TO REPLACE SACRAL DRESSING DUE TO UNSTABLE HEMODYNAMICS Addendum: 04/15/20 at 1024 by Rodger Coates RN Amended: Links added.
[2020-04-15] MEDS: FUROSEMIDE 40 MG/4 ML VIAL IV SCH (10:09)
[2020-04-15] MEDS: PANTOPRAZOLE 40 MG/10 ML VIAL INJ IV SCH ×2 (10:09→22:00)
[2020-04-15] MEDS: SODIUM CHLOR 0.9% PF (SALINE LOCK) 10ML VIAL/SYR IV SCH ×2 (10:09→22:00)
[2020-04-15] MEDS: LINEZOLID 600MG/300ML 300 ML IV SCH ×2 (10:10→22:00)
[2020-04-15] MEDS: ASCORBIC ACID 1,000 MG TAB PO SCH (10:10)
[2020-04-15] MEDS: ZINC SULFATE 220mg CAP or TAB PO SCH (10:10)
--- NOTE | 2020-04-15 11:05 | NUR ---
DR. CHINO AT BEDSIDE
--- NOTE | 2020-04-15 11:34 | NUR ---
EMAIL DEPLOYMENT SPECIALIST NYDIA UPDATED ON CONVALESCENT PLASMA ORDER BY DR. CHINO
[2020-04-15] MEDS ORDERED: methylPREDNISolone SOD SUCC 40 MG/ML VL IV ONE (14:00)
[2020-04-15] MEDS ORDERED: ACETAMINOPHEN 650 mg PER 20 mL UD PO ONE (14:00)
[2020-04-15] MEDS ORDERED: diphenhdrAMINE HCL 50 MG/1 ML VL IV ONE (14:00)
--- NOTE | 2020-04-15 14:06 | NUR ---
Nutrition Followup Note Wt: 110.0 kg Pt`s covid +. Pt is intubated, sedated with propofol running at 31.298 ml/hr which provides 826 kcal from lipids. Pt with a new TPN order of 74 ml/hr to provide 1130 kcal and 70g protein. TPN and propofol provides 79-91% of energy needs and 65-81% of protein needs. Est Energy needs: 4154-4376 kcals (20-23 kcal/kgBW) Est Protein needs: 86-107 gms/day (0.8-1 gm/kgBW) Will continue to monitor and reassess prn. Labs: BUN 42H, Creat 1.69H, GLUC 232H, Alb 2.1L, Ca 8.0L BM: Pt had no BM today per RN note, pt with 660 ml of gastric and stool 04/13 per RN note Skin: BS 12 low risk, full wound care details in RN doc PES: 1) Increased nutrient needs aeb pt is sedated, intubated, NPO r/t pt with no PO intake 2) Obesity aeb 166% IBW and BMI of 38.2 kg/m2 r/t pt Hx of energy intake in excess of energy needs Partially resolved: 3) Altered nutrition related lab values elev RFTs, low GFR, hyperglycemia, hypocalcemia, mod hypoalbuminemia r/t current/chronic medical condition Comments Will continue to closely monitor pertinent labs, NPO status and skin status prn. Will followup in 2-3 days 1) Continue to closely monitor pt NPO status. 2) Continue TPN with propofol to provide >75% of needs, consider EN nutrition support Glucerna 1.2 @ 70 ml/hr goal rate without propofol. when medically feasible 3) Continue current plan of care
[2020-04-15] MEDS ORDERED: TOCILIZUMAB 400 MG in SODIUM CHL 0.9% 80 ML IV ONE (14:30)
--- NOTE | 2020-04-15 14:45 | NUR ---
ORAL CARE PERFORMED
[2020-04-15] MEDS ORDERED: NEUTRA-PHOS TABLET PO ONE (15:45)
[2020-04-15] MEDS ORDERED: CALCIUM ACETATE 667 MG CAP PO ONE (15:45)
[2020-04-15] MEDS: fentaNYL Drip 2500mCg/250mlNS 250 ML IV SCH (15:48)
[2020-04-15] MEDS: NOREPINEPHRINE 8 MG/250ML KIT 250 ML IV SCH ×2 (15:49→16:26)
[2020-04-15] MEDS: REMDESIVIR 100mg in NS 230ml DAILYx4DAYS (NO VENT) IV SCH (16:25)
--- NOTE | 2020-04-15 16:27 | NUR ---
FAMILY UPDATED ON PATIENT STATUS. AWARE THAT THEY MAY COME SEE PATIENT DUE TO PATIENTS CRITICAL STATUS. SPOKE WITH GENTRY DAUGHTER WHO REPORTS SHE IS WAITING FOR THE REST OF THE FAMILY AND WILL COME TO SEE HER FATHER
[2020-04-15] MEDS: SODIUM BICARBONATE 50ML VIAL 100 ML in SOD CHL 0.45% 1,000 ML IV SCH (16:58)
--- NOTE | 2020-04-15 19:30 | NUR ---
REPORT RECEIVED AND ASSUMED CARE; SEE INTERVENTIONS FOR ASSESSMENT; SEE IV SPREADSHEET FOR GTTS; VS STABLE AT THIS TIME; PT. INTUBATED/VENTED/SEDATED AND ON FIO2 AT 100% WITH PEEP 16 PC 22 RATE 22; WILL CONT. TO MONITOR.
--- NOTE | 2020-04-15 19:45 | NUR ---
PATIENT TO UNSTABLE TO TURN AT THIS TIME; WILL CONT. TO MONITOR.
[2020-04-15] MEDS: TPN PER PHARMACY IV NR ×9 (19:54)
[2020-04-15] MEDS ORDERED: TPN PER PHARMACY IV NR ×10 (20:00)
--- NOTE | 2020-04-15 20:00 | NUR ---
FOR IV SPREADSHEET VITALS SEE V/S HEMODYNAMIC SECTION OF CHART.
[2020-04-15] MEDS ORDERED: PATIENTS OWN MEDICATION (ACTEMRA 400 MG) IV SCH (22:00)
[2020-04-16] VITALS (77 sets, daily range): BP systolic 86–129; BP diastolic 44–74
[2020-04-16] MEDS: BUDESONIDE (INHALATION) 0.5 MG/2 ML NEB NEB SCH ×3 (02:52→22:16)
[2020-04-16] MEDS: ACCU-CHEK COMFORT CURVE STRIP VI SCH ×4 (04:00→18:16)
[2020-04-16 04:27] LABS: Potassium 3.2 mmol/L (3.5-5.1)
[2020-04-16 04:37] LABS: Albumin 2.1 g/dL (3.4-5.0); BUN/Creatinine Ratio 28.4; Bilirubin, Total 0.4 mg/dL (0.2-1.0); Calcium 7.9 mg/dL (8.5-10.1); Magnesium 2.5 mg/dL (1.6-2.6); Phosphorus 5.7 mg/dL (2.5-4.90); Total Protein 5.9 g/dL (6.4-8.2)
[2020-04-16] MEDS: PIPERACILLIN-TAZOB 3.375GM 100 ML IV SCH ×4 (06:00→18:16)
[2020-04-16] MEDS: InsuLIN REG 1unit/0.01ml Soln (100units/ml) SC SCH ×4 (06:02→18:00)
[2020-04-16] MEDS: POTASSIUM CHL 20MEQ/100ML 100 ML IV SCH ×2 (09:00→10:21)
[2020-04-16] MEDS: PROPOFOL 100 ML IV SCH (09:17)
[2020-04-16] MEDS: MIDAZOLAM DRIP 50 mg/50mL 50 ML IV SCH ×3 (09:17→21:21)
[2020-04-16] MEDS: ENOXAPARIN SOD 80 MG/0.8ML SYRINGE SC SCH ×2 (10:00→22:42)
[2020-04-16] MEDS: ASCORBIC ACID 1,000 MG TAB PO SCH (10:00)
[2020-04-16] MEDS: ZINC SULFATE 220mg CAP or TAB PO SCH (10:00)
[2020-04-16] MEDS: PANTOPRAZOLE 40 MG/10 ML VIAL INJ IV SCH ×2 (10:29→22:41)
[2020-04-16] MEDS: LINEZOLID 600MG/300ML 300 ML IV SCH ×2 (10:29→22:41)
[2020-04-16] MEDS: SODIUM CHLOR 0.9% PF (SALINE LOCK) 10ML VIAL/SYR IV SCH ×2 (10:29→22:41)
[2020-04-16] MEDS: FUROSEMIDE 40 MG/4 ML VIAL IV SCH (10:29)
[2020-04-16] MEDS: SODIUM BICARBONATE 50ML VIAL 100 ML in SOD CHL 0.45% 1,000 ML IV SCH (14:30)
[2020-04-16] MEDS: fentaNYL Drip 2500mCg/250mlNS 250 ML IV SCH (17:14)
[2020-04-16] MEDS: NOREPINEPHRINE 8 MG/250ML KIT 250 ML IV SCH (17:16)
[2020-04-16] MEDS ORDERED: TPN PER PHARMACY IV NR ×8 (20:00)
[2020-04-17] VITALS (100 sets, daily range): BP systolic 85–143; BP diastolic 47–80
[2020-04-17] MEDS: PIPERACILLIN-TAZOB 3.375GM 100 ML IV SCH ×4 (01:21→18:11)
[2020-04-17] MEDS: MIDAZOLAM DRIP 50 mg/50mL 50 ML IV SCH ×2 (01:21→23:22)
[2020-04-17] MEDS: PROPOFOL 100 ML IV SCH ×2 (03:00→21:48)
[2020-04-17 04:36] LABS: Hemoglobin 8.4 g/dL (13.5-17.5); White Blood Cell 7.5 10^3/uL (4.4-10.8)
[2020-04-17 04:39] LABS: Hematocrit 25.7 % (41.0-53.0); Mean Corpuscular Hemoglobin 30.9 pg (28.0-32.0); Mean Corpuscular Hgb Conc. 32.8 g/dL (32.0-36.0); Mean Corpuscular Volume 94.1 fL (80.0-100.0); Platelet Count (auto) 141 10^3/uL (140-450); Red Blood Cells 2.73 10^6/uL (4.5-5.90); Red Cell Distribution Width 18.4 % (11.8-14.3)
[2020-04-17 04:43] LABS: Band Neutrophils % (manual) 0; Basophils % (manual) 0 (0.0-2.0); Blast Cells 0; Metamyelocytes % 0; Promyelocytes % 0; Reactive Lymphocytes 0
[2020-04-17 05:00] LABS: Albumin 2.2 g/dL (3.4-5.0); BUN/Creatinine Ratio 30.4; Bilirubin, Total 0.4 mg/dL (0.2-1.0); Magnesium 2.4 mg/dL (1.6-2.6); Phosphorus 3.4 mg/dL (2.5-4.90); Pre Albumin 28.5 mg/dL (20.0-40.0); Total Protein 5.7 g/dL (6.4-8.2)
[2020-04-17 05:03] LABS: Potassium 2.5 mmol/L (3.5-5.1)
[2020-04-17 05:08] LABS: Eosinophils % (manual) 9 (0-7); Lymphocytes % (manual) 17 (10.0-50.0); Monocytes % (manual) 6 (0-12); Myelocytes % 2
[2020-04-17] MEDS: POTASSIUM CHL 20MEQ/100ML 100 ML IV PRN (05:57)
[2020-04-17] MEDS: ACCU-CHEK COMFORT CURVE STRIP VI SCH ×4 (05:59→17:40)
[2020-04-17] MEDS: InsuLIN REG 1unit/0.01ml Soln (100units/ml) SC SCH ×4 (06:00→17:40)
--- NOTE | 2020-04-17 06:45 | NUR ---
TITRATED FIO2 DOWN TO 90%, PT TOLERATING CHANGES SPO2 96%. ABG DRAWN, RESULTS TO FOLLOW.
--- NOTE | 2020-04-17 08:27 | NUR ---
CONVALESCENT PLASMA STARTED SEE TRANSFUSION SPREAD SHEET.
[2020-04-17] MEDS: BUDESONIDE (INHALATION) 0.5 MG/2 ML NEB NEB SCH ×2 (08:54→22:20)
[2020-04-17] MEDS ORDERED: POTASSIUM CHL 20MEQ/100ML 100 ML IV SCH (09:00)
[2020-04-17] MEDS: SODIUM CHLOR 0.9% PF (SALINE LOCK) 10ML VIAL/SYR IV SCH ×2 (09:46→22:00)
--- NOTE | 2020-04-17 09:56 | NUR ---
Convalescent plasma ended. Patient tolerated well, no adverse reaction noted.
[2020-04-17] MEDS: ZINC SULFATE 220mg CAP or TAB PO SCH (10:00)
[2020-04-17] MEDS: ENOXAPARIN SOD 80 MG/0.8ML SYRINGE SC SCH ×2 (10:00→22:00)
[2020-04-17] MEDS: ASCORBIC ACID 1,000 MG TAB PO SCH (10:00)
[2020-04-17] MEDS: LINEZOLID 600MG/300ML 300 ML IV SCH ×2 (10:17→22:00)
[2020-04-17] MEDS: PANTOPRAZOLE 40 MG/10 ML VIAL INJ IV SCH ×2 (10:25→22:00)
[2020-04-17] MEDS: POTASSIUM CHL 20MEQ/100ML 100 ML IV SCH ×3 (10:25→14:30)
--- NOTE | 2020-04-17 10:30 | NUR ---
INCREASED FIO2 TO 100% DUE TO LOW O2 SAT 88%. SUCTIONED WITH LAVAGE FOR THICK GRAMAJO MUCOUS PLUG FOLLOWED BY MODERATE THICK GRAMAJO SECRETIONS. NO IMPROVEMENT IN BREATH SOUNDS. SPO2 INCREASED TO 92%. NOTIFIED RN OF CHANGES.
[2020-04-17] MEDS ORDERED: POTASSIUM CHL 20MEQ/100ML 100 ML IV ONE (11:15)
--- NOTE | 2020-04-17 13:49 | NUR ---
Nutrition Followup Note Wt: 114.0 kg Pt`s covid +. Pt is intubated, sedated with propofol running at 25.038 ml/hr which provides 661 kcal from lipids. Pt with TPN nutrition support running @ 63 ml/hr to provide 1120 kcal and 67g protein. Pt with inadequate PN support as it meets 45-52% of est energy needs and 63-78% of est protein needs. Will continue to monitor PO status, skin status, pertinent labs and weight trends. Will f/u in 2-3 days. Est Energy needs: 3884-4676 kcals (20-23 kcal/kgBW) Est Protein needs: 86-107 gms/day (0.8-1 gm/kgBW) Will continue to monitor and reassess prn. Labs: BUN 58 H, Creat 1.91 H, GLUC 107 H, Alb 2.2 L, K 2.5 L, Triglycerides 395 H BM: Pt had 1 BM today, diarrhea, per RN note Skin: BS 13 mod risk, full wound care details in RN doc PES: 1) Increased nutrient needs aeb pt is sedated, intubated, NPO r/t pt with no PO intake 2) Obesity aeb 166% IBW and BMI of 38.2 kg/m2 r/t pt Hx of energy intake in excess of energy needs 3) Altered nutrition related lab values elev RFTs, low GFR, hyperglycemia, hypocalcemia, mod hypoalbuminemia r/t current/chronic medical condition Comments Will continue to closely monitor pertinent labs, NPO status and skin status prn. Will followup in 2-3 days 1) Continue to closely monitor pt NPO status. 2) Continue TPN with propofol to provide >75% of needs, consider EN nutrition support Glucerna 1.2 @ 70 ml/hr goal rate without propofol. when medically feasible 3) Continue current plan of care
[2020-04-17] MEDS: FUROSEMIDE 40 MG/4 ML VIAL IV SCH ×2 (14:17→22:00)
[2020-04-17] MEDS: fentaNYL Drip 2500mCg/250mlNS 250 ML IV SCH ×2 (15:22→22:50)
[2020-04-17] MEDS ORDERED: TPN PER PHARMACY IV NR ×11 (20:00)
[2020-04-17] MEDS: NOREPINEPHRINE 8 MG/250ML KIT 250 ML IV SCH (23:20)
[2020-04-17 23:38] LABS: Albumin 2.1 g/dL (3.4-5.0); BUN/Creatinine Ratio 28.5; Calcium 7.4 mg/dL (8.5-10.1); Potassium 4.4 mmol/L (3.5-5.1)
[2020-04-17 23:41] LABS: Bilirubin, Total 0.5 mg/dL (0.2-1.0); Total Protein 5.5 g/dL (6.4-8.2)
[2020-04-18] VITALS (103 sets, daily range): BP systolic 72–120; BP diastolic 33–69
[2020-04-18] MEDS: MIDAZOLAM DRIP 50 mg/50mL 50 ML IV SCH ×4 (03:30→22:03)
[2020-04-18 04:57] LABS: Potassium 3.5 mmol/L (3.5-5.1)
[2020-04-18 05:03] LABS: Albumin 2.2 g/dL (3.4-5.0); BUN/Creatinine Ratio 28.8; Bilirubin, Total 0.6 mg/dL (0.2-1.0); Calcium 7.1 mg/dL (8.5-10.1); Magnesium 2.3 mg/dL (1.6-2.6); Phosphorus 4.4 mg/dL (2.5-4.90); Total Protein 5.7 g/dL (6.4-8.2)
[2020-04-18] MEDS: PIPERACILLIN-TAZOB 3.375GM 100 ML IV SCH ×5 (05:25→23:44)
[2020-04-18] MEDS: PROPOFOL 100 ML IV SCH ×2 (05:25→09:34)
[2020-04-18] MEDS: InsuLIN REG 1unit/0.01ml Soln (100units/ml) SC SCH ×3 (06:00→18:18)
[2020-04-18] MEDS: ACCU-CHEK COMFORT CURVE STRIP VI SCH ×3 (06:00→17:55)
[2020-04-18] MEDS: FUROSEMIDE 40 MG/4 ML VIAL IV SCH ×3 (06:00→21:47)
[2020-04-18] MEDS: BUDESONIDE (INHALATION) 0.5 MG/2 ML NEB NEB SCH ×2 (06:41→22:02)
--- NOTE | 2020-04-18 08:15 | NUR ---
Respiratory note: DR FIGUEROA WAS PAGED BY RN @ 08:12. DR FIGUEROA RETURNED CALL, AND WAS GIVEN READ BACK OF CRITICAL ABG VALUES. NO CHANGES ORDERED. DR FIGUEROA IS WAITING FOR A CALL BACK FROM PT FAMILY TO DECIDE ON POSSIBLE TERMINAL WEAN. WILL CONTINUE TO MONITOR PT. RN AWARE. CHARTING COMPLETE FROM OUTSIDE OF PT ROOM PER COVID-19 PRECAUTIONS/PROTOCOL.
--- NOTE | 2020-04-18 09:12 | NUR ---
I CALLED PT'S ZAFAR HOOK AND UPDATED HER ON PT'S CONDITION, PT'S LOW OXYGENATION ON THE 60'S , BP IN THE 70'S. NOT MUCH THAT WE CAN DO FOR PT. TO MAKE A DECISION IF THEY WOULD LIKE TO DO A COMPASSIONATE TERMINAL WEAN PT ALREADY DNR BUT REMAINS ON VENTILATOR AND ON LEVOPHED WHICH KEEPS ON BEEN TITRATED UP FOR HYPOTENSION.
[2020-04-18] MEDS: PANTOPRAZOLE 40 MG/10 ML VIAL INJ IV SCH ×2 (09:37→21:50)
[2020-04-18] MEDS: LINEZOLID 600MG/300ML 300 ML IV SCH ×2 (09:38→21:44)
[2020-04-18] MEDS: SODIUM CHLOR 0.9% PF (SALINE LOCK) 10ML VIAL/SYR IV SCH ×2 (09:38→21:51)
[2020-04-18] MEDS: ZINC SULFATE 220mg CAP or TAB PO SCH (09:38)
[2020-04-18] MEDS: ENOXAPARIN SOD 80 MG/0.8ML SYRINGE SC SCH ×3 (09:39→21:51)
[2020-04-18] MEDS: ASCORBIC ACID 1,000 MG TAB PO SCH (09:39)
--- NOTE | 2020-04-18 10:10 | NUR ---
D[place] HELD PT HAVING BLOODY ORAL SECRETIONS. THERE ARE BLOODY SECRETIONS ON PT'S CANISTER TOO. RT DENIES GETTING ANY ETT BLOODY SECRETIONS. I DID NOT SUCTION TROUGH ETT BECAUSE OF LOW SPO2 S/P RT SUCTIONING. DR. FIGUEROA AWARE OF PT'S ABNORMAL ABG AND POOR OXYGENATION. LEVOPHED BEEN TITRATED UP PT IS DNR AND WE ARE WAITING FOR FAMILY TO SEE IF THEY ARE GOING TO MAKE PT A TERMINAL WEAN. REFER TO IV FLOW SHEET FOR TITRATIONS.
--- NOTE | 2020-04-18 11:00 | NUR ---
FAMILY UPDATE PT'S DAUGHTER GENTRY ARANDA CALLED SHE SAID THAT ALL FAMILY WAS GATHERED TOGETHER AND THEY WANTED ME TO UPDATE ALL HER FAMILY IN [place] REGARDING PT'S CONDITION. I UPDATED THEM. THEY SAID THEY HAD TO TALK ABOUT IT AND THEN MAKE A DECISION AND THEN THEY'LL GIVE ME A CALL.
--- NOTE | 2020-04-18 12:00 | NUR ---
THERMOREGULATION TEMPERATURE 100.3 ORALLY COOLING MEASURES IMPLEMENTED. ICE PACKS APPLIED TO PT'S ARM PITS BILATERALLY. BOTH GROINS AND BEHIND PT'S NECK. WILL RE ASSESS PT'S TEMPERATURE AT 1600.
--- NOTE | 2020-04-18 13:03 | NUR ---
I CALLED PT'S ZAFAR HOOK AND NOTIFIED HER THAT SHE AND HER IMMEDIATE FAMILY CAN VISIT DURING A TERMINAL WEAN IN THE ROOM. HER AND HER CHILDREN CAN BE PRESENT AFTER EXTUBATION. PT'S SPOUSE WAS WONDERING IF PT'S BROTHER COULD BE PRESENT. PT'S BROTHER'S PRESENCE WAS DECLINED SINCE HE WAS ALLOWED TO VISIT YESTERDAY AND TO LIMIT THE SPREAD OF COVID ALTHOUGH ALL PPE PRECAUTIONS WERE TAKEN LAST NIGHT.
--- NOTE | 2020-04-18 13:08 | NUR ---
I CALLED AND NOTIFIED DR. FIGUEROA OF PT'S WISHES TO DO A TERMINAL WEAN ONCE THEY CAME IN TO SEE PT. . ORDER A TERMINAL WEAN ONCE PT'S FAMILY ARE IN THE HOSPITAL AND READY FOR TERMINAL WEAN.
--- NOTE | 2020-04-18 14:52 | NUR ---
PT'S ZAFAR HOOK CALLED ME SHE SAID THAT SHE WAS ALMOST HERE AT THE HOSPITAL WHEN HER TWO DAUGHTERS CALLED HER AND TOLD HER NOT TO WITHDRAW PT FROM THE VENTILATOR AND TO LET NATURE TAKE ITS COURSE. " LEAVE IT UP TO GOD". I TOLD HER NOT TO WORRY ABOUT IT THAT I WOULD NOTIFY THE DOCTOR TO CANCELL THE TERMINAL WEAN ORDER, THAT WITHOUT THEM WE WOULDN'T DO ANYTHING ANYWAY.
--- NOTE | 2020-04-18 14:54 | NUR ---
I NOTIFIED DR FIGUEROA OF PT'S SPOUSE WISH TO NOT WITHDRAW PT FROM VENTILATOR PER PT'S DAUGHTERS REQUEST. DR. FIGUEROA WILL CANCEL ORDER FOR TERMINAL WEAN . AND SHE ALSO STATES NOT TO TITRATE LEVOPHED ANY FURTHER. LEVOPHED CURRENTLY AT 22 KAYLENE/MIN .
--- NOTE | 2020-04-18 15:00 | NUR ---
Respiratory note: MARLENI NICKERSON INFORMED ME THAT PT FAMILY DECIDED TO NOT PROCEED WITH TERMINAL WEAN. DR FIGUEROA AWARE. WILL CONTINUE TO MONITOR PT. CHARTING COMPLETE FROM OUTSIDE PT ROOM PER COVID-19 PRECAUTIONS/PROTOCOL.
[2020-04-18] MEDS: NOREPINEPHRINE 8 MG/250ML KIT 250 ML IV SCH ×2 (16:19→21:30)
[2020-04-18] MEDS ORDERED: DEXTROSE (50%) 50ML SYRG IV SCH (18:00)
--- NOTE | 2020-04-18 18:41 | NUR ---
I CALLED PHARMACY AND NOTIFIED THEM THAT FAMILY DECIDED NOT TO DO TERMINAL WEAN, TO PLEASE SEND PPN, PHARMACY WILL SEND CL[facility] ,ITS TOO LATE TO ORDER PPN. I TOLD THEM TO CALL DAY SHIFT RN TO FOLLOW UP WITH MD TO SEE IF THEY WANT TO CONTINUE WITH TPN IF PT PULL THROUGH TONIGH.
[2020-04-18] MEDS ORDERED: AMINO ACID INFUSION IN D5W 2,000 ML IV NR (20:00)
[2020-04-18] MEDS ORDERED: TPN PER PHARMACY IV NR ×8 (20:00)
--- NOTE | 2020-04-18 20:40 | NUR ---
TEMP DOWN TO 100.2 ORALLY. ICE PACKS REFILLED. ORAL CARE PROVIDED AFTER TEMP WAS TAKEN. PT VERY UNSTABLE TO REPOSITION. SPO2 IN THE 70'S TO 80'S. PT'S FAMILY AWARE.
[2020-04-18 22:38] LABS: Anion Gap 12 (5-15); Blood Urea Nitrogen 74 mg/dL (7-18); Carbon Dioxide 18 mmol/L (21-32); Chloride 99 mmol/L (98-107); Glucose 144 mg/dL (74-106); Sodium 129 mmol/L (136-145)
[2020-04-18 22:39] LABS: BUN/Creatinine Ratio 22.4; Calcium 7.8 mg/dL (8.5-10.1); GFR African American 26 mL/min; GFR Non-African American 21 mL/min
[2020-04-18 22:41] LABS: Potassium 5.8 mmol/L (3.5-5.1)
[2020-04-18] MEDS ORDERED: ACETAMINOPHEN IV 1000 MG/100ML (10MG/ML) IV ONE (23:30)
[2020-04-19] VITALS (100 sets, daily range): BP systolic 87–133; BP diastolic 38–68
[2020-04-19] MEDS: fentaNYL Drip 2500mCg/250mlNS 250 ML IV SCH (00:25)
[2020-04-19] MEDS: NOREPINEPHRINE 8 MG/250ML KIT 250 ML IV SCH (04:00)
[2020-04-19 05:12] LABS: Hemoglobin 12.7 g/dL (13.5-17.5)
[2020-04-19 05:16] LABS: Hematocrit 40.9 % (41.0-53.0); Mean Corpuscular Hemoglobin 29.9 pg (28.0-32.0); Mean Corpuscular Volume 96.3 fL (80.0-100.0); Platelet Count (auto) 103 10^3/uL (140-450); Red Blood Cells 4.25 10^6/uL (4.5-5.90); Red Cell Distribution Width 19.9 % (11.8-14.3); White Blood Cell 11.4 10^3/uL (4.4-10.8)
[2020-04-19 05:30] LABS: Albumin 2.4 g/dL (3.4-5.0); Calcium 7.1 mg/dL (8.5-10.1); Magnesium 2.6 mg/dL (1.6-2.6)
[2020-04-19 05:49] LABS: BUN/Creatinine Ratio 22.3; Bilirubin, Total 1.5 mg/dL (0.2-1.0); Phosphorus 8.2 mg/dL (2.5-4.90); Total Protein 5.9 g/dL (6.4-8.2)
[2020-04-19] MEDS: PIPERACILLIN-TAZOB 3.375GM 100 ML IV SCH ×2 (06:00→12:09)
[2020-04-19] MEDS: ACCU-CHEK COMFORT CURVE STRIP VI SCH ×4 (06:00→18:00)
[2020-04-19] MEDS: FUROSEMIDE 40 MG/4 ML VIAL IV SCH ×3 (06:00→22:06)
[2020-04-19] MEDS: InsuLIN REG 1unit/0.01ml Soln (100units/ml) SC SCH ×4 (06:00→18:00)
[2020-04-19] MEDS: MIDAZOLAM DRIP 50 mg/50mL 50 ML IV SCH (06:13)
[2020-04-19 06:15] LABS: Potassium 5.6 mmol/L (3.5-5.1)
[2020-04-19 06:20] LABS: Basophils % (manual) 0 (0.0-2.0); Blast Cells 0; Eosinophils % (manual) 0 (0-7); Myelocytes % 0; Promyelocytes % 0; Reactive Lymphocytes 0
[2020-04-19] MEDS: BUDESONIDE (INHALATION) 0.5 MG/2 ML NEB NEB SCH ×2 (07:11→22:38)
[2020-04-19 07:18] LABS: Band Neutrophils % (manual) 7; Lymphocytes % (manual) 11 (10.0-50.0); Metamyelocytes % 1; Monocytes % (manual) 9 (0-12)
[2020-04-19] MEDS: LINEZOLID 600MG/300ML 300 ML IV SCH (10:35)
[2020-04-19] MEDS: ZINC SULFATE 220mg CAP or TAB PO SCH (10:35)
[2020-04-19] MEDS: PANTOPRAZOLE 40 MG/10 ML VIAL INJ IV SCH ×2 (10:35→22:06)
[2020-04-19] MEDS: ENOXAPARIN SOD 80 MG/0.8ML SYRINGE SC SCH (10:35)
[2020-04-19] MEDS: SODIUM CHLOR 0.9% PF (SALINE LOCK) 10ML VIAL/SYR IV SCH ×2 (10:35→22:06)
[2020-04-19] MEDS: ASCORBIC ACID 1,000 MG TAB PO SCH (10:36)
--- NOTE | 2020-04-19 11:15 | NUR ---
WOUND CARE NOTE: IN TO SEE PATIENT AT THIS TIME FOR SKIN/WOUND INTEGRITY. PATIENT HAS CURRENT ROSANGELA SCORE OF 10. HE REMAINS INTUBATED, NON RESPONSIVE, AIRBORNE ISOLATION FOR COVID 19. PATIENT IS TOO HEMODYNAMICALLY UNSTABLE TO TURN/REPOSITION AT THIS TIME PER BEDSIDE NURSE. WILL ATTEMPT TO SEE AGAIN AT ANOTHER TIME, ONCE STABLE.
[2020-04-19] MEDS ORDERED: SODIUM BICARBONATE 8.4 % INJ 50ML VIAL IV ONE (11:30)
[2020-04-19] MEDS ORDERED: AMINO ACID INFUSION IN D5W 2,000 ML IV NR (12:00)
--- NOTE | 2020-04-19 12:30 | NUR ---
BEDSIDE Dr. Link bedside. No new orders received.
--- NOTE | 2020-04-19 12:35 | NUR ---
BEDSIDE Dr. Carolina toney. New orders received.
--- NOTE | 2020-04-19 12:55 | NUR ---
Nutrition Followup Note Wt: 116.0 kg Pt`s covid +. Pt is intubated, sedated with propofol running at 15.649 ml/hr which provides 413 kcal from lipids. Pt with TPN nutrition support suspended, holding for family decision on terminal vent weaning per RN. Will continue to monitor PO status, skin status, pertinent labs and weight trends. Will f/u in 2-3 days. Est Energy needs: 7465-3281 kcals (20-23 kcal/kgBW) Est Protein needs: 86-107 gms/day (0.8-1 gm/kgBW) Will continue to monitor and reassess prn. Labs: BUN 77 H, Creat 3.46 H, GLUC 228 H, Alb 2.4 L BM: Pt had 1 BM today, diarrhea, per RN note Skin: BS 13 mod risk, full wound care details in RN doc PES: 1) Increased nutrient needs aeb pt is sedated, intubated, NPO r/t pt with no PO intake 2) Obesity aeb 166% IBW and BMI of 38.2 kg/m2 r/t pt Hx of energy intake in excess of energy needs 3) Altered nutrition related lab values elev RFTs, low GFR, hyperglycemia, hypocalcemia, mod hypoalbuminemia r/t current/chronic medical condition Comments Will continue to closely monitor pertinent labs, NPO status and skin status prn. Will followup in 2-3 days 1) Continue to closely monitor pt NPO status. 2) Continue TPN with propofol to provide >75% of needs, consider EN nutrition support Glucerna 1.2 @ 70 ml/hr goal rate without propofol. when medically feasible 3) Continue current plan of care
[2020-04-19] MEDS ORDERED: DEXTROSE (50%) 50ML SYRG IV ONE (14:00)
[2020-04-19] MEDS ORDERED: InsuLIN REG 1unit/0.01ml Soln (100units/ml) IV ONE (14:00)
[2020-04-19] MEDS ORDERED: SODIUM BICARBONATE 50ML VIAL 50 ML in SOD CHL 0.45% 1,000 ML IV SCH ×4 (15:30)
[2020-04-19] MEDS ORDERED: DexAMETHasone SOD PHOS 10MG/1ML VIAL INJ IV ONE (15:30)
[2020-04-19] MEDS ORDERED: FLUCONAZOLE 200MG/100ML 100 ML IV ONE (15:30)
[2020-04-19] MEDS ORDERED: fentaNYL Drip 2500mCg/250mlNS 250 ML IV SCH (16:29)
[2020-04-19] MEDS: PROPOFOL 100 ML IV SCH ×2 (16:29→22:46)
[2020-04-19] MEDS ORDERED: MIDAZOLAM DRIP 50 mg/50mL 50 ML IV SCH (16:29)
--- NOTE | 2020-04-19 18:00 | NUR ---
ATTEMPTED TO TURN PATIENT Patient unstable. BP dropped. Poor toleration for care.
[2020-04-19] MEDS ORDERED: NOREPINEPHRINE 8 MG/250ML KIT 250 ML IV SCH (18:16)
--- NOTE | 2020-04-19 19:30 | NUR ---
Opening Shift Note Received pt on mechanical ventilator sedated n versed, propofol, and fentanyl. Pt breathing over ventilator. See IC spreadsheet for titrations Pt has positive cough and gag. Full assessment done see interventions. Unable to assess backside as pt does not tolerate turning per shift report. Will continue to assess throughout night if pt can tolerate turning. Farrell catheter intact draining to gravity with very minimal urine out put seen in tubing. Pt has scrotal swelling. Pt in isolation precaution for COVID. Bed locked in lowest position. All alarms on and audible. Pt in full view of RN.
--- NOTE | 2020-04-19 22:00 | NUR ---
Family Call from family, password verified and update given. All questions and concerns addressed at this time.
[2020-04-19] MEDS: DexAMETHasone SOD PHOS 10MG/1ML VIAL INJ IV SCH (22:05)
[2020-04-20] VITALS (42 sets, daily range): BP systolic 40–123; BP diastolic 19–80
--- NOTE | 2020-04-20 02:00 | NUR ---
Py too unstable to turn. Desaturates and becomes bradycardic
[2020-04-20 04:26] LABS: Basophils # (auto) 0.1 10 ^3/uL (0-0.2); Basophils % (auto) 0.4 % (0.0-2.0); Eosinophils # (auto) 0 10 ^3/uL (0-0.8); Eosinophils % (auto) 0.3 % (0.0-7.0); Hematocrit 26.8 % (41.0-53.0); Hemoglobin 8.7 g/dL (13.5-17.5); Lymphocytes # (auto) 1.6 10 ^3/uL (0.4-5.4); Lymphocytes % (auto) 9.2 % (10.0-50.0); Mean Corpuscular Hemoglobin 30.4 pg (28.0-32.0); Mean Corpuscular Hgb Conc. 32.5 g/dL (32.0-36.0); Mean Corpuscular Volume 93.7 fL (80.0-100.0); Monocytes # (auto) 0.3 10 ^3/uL (0-1.3); Monocytes % (auto) 1.9 % (0.0-12.0); Neutrophils # (auto) 15.3 10 ^3/uL (1.6-8.6); Neutrophils % (auto) 88.2 % (37.0-80.0); Platelet Count (auto) 89 10^3/uL (140-450); Red Blood Cells 2.86 10^6/uL (4.5-5.90); Red Cell Distribution Width 19.7 % (11.8-14.3); White Blood Cell 17.4 10^3/uL (4.4-10.8)
[2020-04-20 04:32] LABS: Nucleated Red Blood Cells % 3.5 %
[2020-04-20 04:54] LABS: Albumin 2.6 g/dL (3.4-5.0); BUN/Creatinine Ratio 21.1; Bilirubin, Total 2.8 mg/dL (0.2-1.0); Calcium 7.6 mg/dL (8.5-10.1); Magnesium 2.6 mg/dL (1.6-2.6); Total Protein 6.4 g/dL (6.4-8.2)
[2020-04-20 05:04] LABS: Phosphorus 8.8 mg/dL (2.5-4.90)
[2020-04-20 05:06] LABS: Potassium 6.6 mmol/L (3.5-5.1)
[2020-04-20] MEDS ORDERED: SODIUM ZIRCONIUM CYCL 10 GM PAK PO ONE (05:45)
[2020-04-20] MEDS ORDERED: DEXTROSE (50%) 50ML SYRG IV ONE (05:45)
[2020-04-20] MEDS ORDERED: SODIUM BICARBONATE 8.4 % INJ 50ML VIAL IV ONE (05:45)
[2020-04-20] MEDS ORDERED: InsuLIN REG 1unit/0.01ml Soln (100units/ml) IV ONE (05:45)
[2020-04-20] MEDS ORDERED: CALCIUM GLUC 4.65meq/50ml D5AE 50 ML IV ONE (05:45)
[2020-04-20] MEDS: InsuLIN REG 1unit/0.01ml Soln (100units/ml) SC SCH ×2 (06:00)
--- NOTE | 2020-04-20 06:09 | NUR ---
CARES Cleansed pt and partial linen change performed. Jelly like red blood leaking around flexi seal with dark green stool. cleansed pt. Pt desaturated to 70's but recovered.
[2020-04-20] MEDS: BUDESONIDE (INHALATION) 0.5 MG/2 ML NEB NEB SCH (06:11)
[2020-04-20] MEDS: DexAMETHasone SOD PHOS 10MG/1ML VIAL INJ IV SCH (06:19)
[2020-04-20] MEDS: ACCU-CHEK COMFORT CURVE STRIP VI SCH ×2 (06:20)
--- NOTE | 2020-04-20 07:50 | NUR ---
OPENING Report received from Rosy HACKETT RN. Care initiated and initial assessment complete.
--- NOTE | 2020-04-20 08:00 | NUR ---
UNSTABLE Patient bradycardic and hypotensive. Titrating medication as ordered. See IV spreadsheet.
--- NOTE | 2020-04-20 09:00 | NUR ---
RADHA KINGSLEY TO PRONOUNCE Radha KINGSLEY to pronounce time of . Spoke to Dr. Quiroga who is aware and states he will come pronounce.
[2020-04-20] MEDS ORDERED: SODIUM BICARBONATE 50ML VIAL 150 ML in D5W 5% 1,000 ML IV SCH (09:45)
[2020-04-20] MEDS ORDERED: FLUCONAZOLE 200MG/100ML 100 ML IV SCH (10:00)
--- NOTE | 2020-04-20 11:00 | NUR ---
CALLED FAMILY Awaiting MD. Called family and spoke to them about after life wishes. Per the daughter Tequila, the patient wanted to be cremated. Informed the daughter about [employer]. [employer] [facility] to be the mortuary.
--- NOTE | 2020-04-20 12:15 | NUR ---
PRONOUNCED Dr. Link pronounced patient. Time of stated at time of asystole with telemetry reading, 0900.
--- NOTE | 2020-04-20 18:40 | NUR ---
INSURANCE VERIFIER CLEARED Per storeroom attendant Antwon mSith, these is no storeroom attendant number, patient is cleared without a storeroom attendant number since it is not a coroners case.
--- NOTE | 2020-04-20 18:41 | NUR ---
[facility] Paged [employer] [facility], patient information given and they will return a call with time for picker feeder.
--- NOTE | 2020-04-20 19:43 | NUR ---
AFFORDABLE CREMATION DUE FOR PICKUP AT [id number]
== END 2020-04-20 09:00 | disposition expired | DRG 720 ==
LOC: ER 18:45 → TELE 18:46 → ICU WEST 03-22 19:02
PROVIDERS: ADMIT Hospitalist; ATTEND Internal Medicine
PROC: 5A1955Z Respiratory Ventilation, Greater than 96 Consecutive Hours (ICD-10-PCS; principal; 2020-03-22)
PROC: 0BH17EZ Insertion of Endotracheal Airway into Trachea, Via Natural or Artificial Opening (ICD-10-PCS; 2020-03-22)
PROC: 5A09357 Assistance with Respiratory Ventilation, Less than 24 Consecutive Hours, Continuous Positive Airway Pressure (ICD-10-PCS; 2020-03-22)
PROC: 0DH67UZ Insertion of Feeding Device into Stomach, Via Natural or Artificial Opening (ICD-10-PCS; 2020-03-22)
PROC: 02HV33Z Insertion of Infusion Device into Superior Vena Cava, Percutaneous Approach (ICD-10-PCS; 2020-03-22)
PROC: XW043H5 Introduction of Tocilizumab into Central Vein, Percutaneous Approach, New Technology Group 5 (ICD-10-PCS; 2020-03-23)
PROC: 3E0G76Z Introduction of Nutritional Substance into Upper GI, Via Natural or Artificial Opening (ICD-10-PCS; 2020-04-03)
PROC: XW033E5 Introduction of Remdesivir Anti-infective into Peripheral Vein, Percutaneous Approach, New Technology Group 5 (ICD-10-PCS; 2020-04-11)
PROC: 30233K1 Transfusion of Nonautologous Frozen Plasma into Peripheral Vein, Percutaneous Approach (ICD-10-PCS; 2020-04-14)
PROC: XW033H5 Introduction of Tocilizumab into Peripheral Vein, Percutaneous Approach, New Technology Group 5 (ICD-10-PCS; 2020-04-15)
PROC: XW13325 Transfusion of Convalescent Plasma (Nonautologous) into Peripheral Vein, Percutaneous Approach, New Technology Group 5 (ICD-10-PCS; 2020-04-17)
DX: A41.89 Other specified sepsis (principal); U07.1 COVID-19; R65.21 Severe sepsis with septic shock; J96.01 Acute respiratory failure with hypoxia; J96.02 Acute respiratory failure with hypercapnia; N17.0 Acute kidney failure with tubular necrosis; J12.89 Other viral pneumonia; Z68.41 Body mass index [BMI] 40.0-44.9, adult; E87.0 Hyperosmolality and hypernatremia; E87.4 Mixed disorder of acid-base balance; E11.9 Type 2 diabetes mellitus without complications; E66.9 Obesity, unspecified; E83.51 Hypocalcemia; E87.5 Hyperkalemia; E87.6 Hypokalemia; I10 Essential (primary) hypertension; E83.39 Other disorders of phosphorus metabolism; K72.90 Hepatic failure, unspecified without coma; Z66 Do not resuscitate; Z82.49 Family history of ischemic heart disease and other diseases of the circulatory system
CPT/HCPCS: 31500; 36415; 36569; 36600; 51702; 71045; 80048; 80053; 80076; 81001; 82040; 82306; 82310; 82570; 82728; 82805; 82962; 83036; 83605; 83615; 83735; 83880; 84100; 84132; 84156; 84300; 84443; 84478; 84484; 85007; 85025; 85027; 85379; 85610; 85652; 85730; 86141; 86850; 86900; 86901; 87040; 87070; 87081; 87205; 87804; 87880; 93005; 94002; 94003; 94640; 94660; 96365; 96367; 99291; A4618; C9113; G0378; J0131; J0330; J0696; J1100; J1450; J1815; J1956; J2250; J2405; J2543; J2704; J3480; J7060; J7131; P9047